=== PATIENT | female | born 1985 | race Caucasian/White ===

== ENCOUNTER 2019-10-01 12:31 | Outpatient (CLI) | payer OTHER, SELFPAY ==
--- NOTE | ~2019-10-01 | MMUS_ITS ---
EXAMINATION: MM diagnostic nya LT w zandra, US breast LT complete HISTORY: Palpable left breast lump TECHNIQUE: Additional 3-D tomosynthesis images of the left breast were performed and synthetic 2-D im ages were generated. CAD analysis was submitted and interpreted. High resolution left breast ultrasou nd was performed. COMPARISON: None FINDINGS: MAMMOGRAPHIC FINDINGS: The breasts are extremely dense, which lowers the sensitivity of mammography. There is a silicone imp lant. There are no suspicious masses, calcifications or architectural distortion in the left breast t o suggest malignancy. ULTRASOUND: Left breast ultrasound: At 2:00, 7 cm from the nipple, there is an 8 mm cyst. At 10:00, 6 cm from the nipple, there is a 5 mm cyst. No suspicious masses to suggest malignancy. IMPRESSION: 1. No mammographic or sonographic evidence for malignancy. BI-RADS CATEGORY 2 - BENIGN FINDINGS Reviewed, dictated and finalized at location A. IMPRESSION: 1. No mammographic or sonographic evidence for malignancy. BI-RADS CATEGORY 2 - BENIGN FINDINGS
== END 2019-10-01 12:32 | disposition home or self-care (01) ==
PROVIDERS: Visit Provider Advanced Practice Midwife
DX: N60.02 Solitary cyst of left breast (principal)
CPT/HCPCS: 76641; 77061; 77065; G0279

== ENCOUNTER 2020-01-29 18:42 | Inpatient (IN) | payer OTHER, SELFPAY ==
[2020-01-29] VITALS (25 sets, daily range): BP systolic 106–149; BP diastolic 63–111; PULSE 66–178; TEMP 36.6; O2SAT 98–100; BMI 28.3
[2020-01-29 19:54] LABS: Basophils Percent Auto 0.2 % (0.2-1.2); Eosinophils Percent Auto 0.2 % (0-4.4); Hemoglobin 10.5 g/dL (12.0-15.0); Immature Granulocyte Absolute 0.05 K/mm3 (0.00-0.031); Immature Granulocyte Percent A 0.5 % (0-0.5); Lymphocytes Absolute Auto 1.99 K/mm3 (0.9-3.2); Lymphocytes Percent Auto 18.6 % (18.3-44.2); Mean Corpuscular HGB Conc 31.8 g/dl (32-36); Mean Corpuscular Hemoglobin 25.9 pg (26-34); Mean Corpuscular Volume 81.3 fl (80-100); Mean Platelet Volume 12.2 fl (7.4-10.4); Monocytes Absolute Auto 0.7 K/mm3 (0.1-0.6); Monocytes Percent Auto 6.6 % (2.6-8.5); Neutrophils Absolute Auto 7.9 K/mm3 (1.3-6.7); Neutrophils Percent Auto 73.9 % (45.5-73.1); Platelet Count Result 224 k/mm3 (150-375); Red Blood Count 4.06 M/mm3 (4.2-5.4); Red Cell Distribution Width 12.6 % (11.5-14.5); White Blood Count 10.7 K/mm3 (4.5-10.0)
--- NOTE | 2020-01-29 19:56 | LDADM ---
This patient, Guillermina Velez, was admitted to Labor/Delivery/Recovery 108 on 01/29/20 at 18:42. Plans for labor, pain management and were discussed with patient. Patient/family oriented to hospital policies and general routines including ID bracelet, bed and alarms, visiting hours, pain management, procedures, bathroom and other care routines, personal items, smoking policy, room service/diet and guest tray routines, security routines, and visiting hours. Patient/Family are encouraged to report perceived risks to care and to ask questions if they do not understand what they are told or what they should do. See OBIX for further documentation.
[2020-01-29 20:08] LABS: Alanine Aminotransferase 18 U/L (4-35); Albumin Level 3.3 g/dL (3.5-5.1); Alkaline Phosphatase 205 U/L (38-126); Anion Gap 5 mmol/L (8-16); Aspartate Amino Transferase 36 U/L (14-36); Bilirubin,Total 0.2 mg/dL (0.2-1.3); Blood Urea Nitrogen 12 mg/dL (7-17); Calcium 8.9 mg/dL (8.4-10.2); Carbon Dioxide 23 mmol/L (22-30); Chloride 107 mmol/L (98-107); Estimated CRCL calculation 106 ml/min; Estimated Glomerular Filt Rate > 60; Glucose 111 mg/dL (65-105); Potassium 3.8 mmol/L (3.4-5.0); Sodium 135 mmol/L (137-145); Uric Acid 5.3 mg/dL (2.5-7.5)
[2020-01-29] MEDS: OXYTOCIN 30 UNITS/NS 500 ML 30 UNITS/500 ML BAG 6 UNITS IV CONT (20:17)
[2020-01-29] MEDS: LACTATED RINGERS 1,000 ML 125 ML IV CONT (20:17)
--- NOTE | 2020-01-29 21:07 | WPDHPUPDATE1 ---
History and Physical Update Update Date/Time: 01/29/20 21:07 This patient is a 35 at 38 weeks with PIH. We have agreed to medical induction of labor. Kathie stated, DANA Boyle clear, /-2 To continue expectant management History and Physical has been reviewed, including an updated exam of the patient. There are NO changes in the patient's condition. Risks, benefits, and alternatives have been discussed and questions answered. Patient agrees to proceed with procedure.
--- NOTE | 2020-01-29 23:37 | WPDANESEPPF ---
Anes - Initial Pre Proc Eval Date/Time: 01/29/20 23:37 Surgeon: Jennifer Rebolledo MD Pre Op Diagnosis: IOL Patient Data Age: 35 Gender: F Height: 5 ft 7 in Weight: 82 kg Last Vital Signs Pulse 89 01/29/20 23:35 BP 135/68 01/29/20 23:35 Pulse Ox 100 01/29/20 23:35 Allergies Allergy/AdvReac Type Severity Reaction Status Date / Time codeine Allergy Nausea Verified 01/15/20 12:36 Home Medications Medication Instructions Recorded Confirmed Type PNV cmb#95-ferrous fumarate-FA 1 tablet PO DAILY 01/15/20 01/15/20 History [] cefdinir 300 mg PO Q12H 01/29/20 01/29/20 History Laboratory Tests 01/29/20 01/29/20 01/29/20 19:46 19:46 19:46 WBC 10.7 K/mm3 H K/mm3 (4.5-10.0) RBC 4.06 M/mm3 L M/mm3 (4.2-5.4) Hgb 10.5 g/dL L g/dL (12.0-15.0) Hct 33.0 % L % (37.0-47.0) MCV 81.3 fl fl (80-100) MCH 25.9 pg L pg (26-34) MCHC 31.8 g/dl L g/dl (32-36) RDW 12.6 % % (11.5-14.5) Plt Count 224 k/mm3 k/mm3 (150-375) MPV 12.2 fl H fl (7.4-10.4) Immature Gran % (Auto) 0.5 % % (0-0.5) Neut % (Auto) 73.9 % H % (45.5-73.1) Lymph % (Auto) 18.6 % % (18.3-44.2) [place] % (Auto) 6.6 % % (2.6-8.5) Eos % (Auto) 0.2 % % (0-4.4) Baso % (Auto) 0.2 % % (0.2-1.2) Lymph # (Auto) 1.99 K/mm3 K/mm3 (0.9-3.2) [place] # (Auto) 0.7 K/mm3 H K/mm3 (0.1-0.6) Eos # (Auto) 0.0 K/mm3 K/mm3 (0-0.3) Baso # (Auto) 0.0 K/mm3 K/mm3 (0.0-0.1) Abs Immat Gran (auto) 0.05 K/mm3 H K/mm3 (0.00-0.031) Absolute Neuts (auto) 7.9 K/mm3 H K/mm3 (1.3-6.7) Absolute Nucleated RBC 0.0 K/mm3 K/mm3 (0.0-0.012) Nucleated RBC % 0.0 % % (0.0-0.2) Sodium Potassium Chloride Carbon Dioxide Anion Gap BUN Creatinine Estim Creat Clear Calc Estimated GFR Glucose Uric Acid Calcium Total Bilirubin AST ALT Alkaline Phosphatase Total Protein Albumin RPR Pending Blood Type O Positive Antibody Screen Negative 01/29/20 19:48 WBC RBC Hgb Hct MCV MCH MCHC RDW Plt Count MPV Immature Gran % (Auto) Neut % (Auto) Lymph % (Auto) [place] % (Auto) Eos % (Auto) Baso % (Auto) Lymph # (Auto) [place] # (Auto) Eos # (Auto) Baso # (Auto) Abs Immat Gran (auto) Absolute Neuts (auto) Absolute Nucleated RBC Nucleated RBC % Sodium 135 mmol/L L mmol/L (137-145) Potassium 3.8 mmol/L mmol/L (3.4-5.0) Chloride 107 mmol/L mmol/L (98-107) Carbon Dioxide 23 mmol/L mmol/L (22-30) Anion Gap 5 mmol/L L mmol/L (8-16) BUN 12 mg/dL mg/dL (7-17) Creatinine 0.70 mg/dL mg/dL (0.7-1.0) Estim Creat Clear Calc 106 ml/min ml/min Estimated GFR > 60 (59 - ) Glucose 111 mg/dL H mg/dL (65-105) Uric Acid 5.3 mg/dL mg/dL (2.5-7.5) Calcium 8.9 mg/dL mg/dL (8.4-10.2) Total Bilirubin 0.2 mg/dL mg/dL (0.2-1.3) AST 36 U/L U/L (14-36) ALT 18 U/L U/L (4-35) Alkaline Phosphatase 205 U/L H U/L (38-126) Total Protein 6.0 g/dL L g/dL (6.3-8.2) Albumin 3.3 g/dL L g/dL (3.5-5.1) RPR Blood Type Antibody Screen Patient hx anesthesia problems: none Family hx anesthesia problems: none [facility] Past Medical History Medical History (Updated 01/29/20 @ 23:37 by Aravind Urias MD) Anxiety Family History Family History Father Lung cancer Sibling Breast
[2020-01-30] VITALS (167 sets, daily range): BP systolic 62–180; BP diastolic 38–135; PULSE 34–154; RESP 16; TEMP 36.1–36.8; O2SAT 76–100
[2020-01-30] MEDS: ONDANSETRON INJ 4 MG/2 ML VIAL IV PUSH ×2 (01:23→07:22)
[2020-01-30] MEDS: LACTATED RINGERS 1,000 ML 125 ML IV CONT (02:58)
--- NOTE | 2020-01-30 08:03 | P.PNOB_ITS ---
OB - PN: Subj Subjective Date/time seen: 01/30/20 08:03 35-year-old 2 para 0 at 38 and 6 with PIH who was induced last night. She is almost completely dilated. 0 station. There is reassuring heart tones. To continue to expectant management. OB - PN: Obj Data Labs CBC & Chem 7: 01/29/20 19:46 01/29/20 19:48 Labs: Laboratory Results - last 24 hr 01/29/20 01/29/20 01/29/20 19:46 19:46 19:48 WBC 10.7 H RBC 4.06 L Hgb 10.5 L Hct 33.0 L MCV 81.3 MCH 25.9 L MCHC 31.8 L RDW 12.6 Plt Count 224 MPV 12.2 H Immature Gran % (Auto) 0.5 Neut % (Auto) 73.9 H Lymph % (Auto) 18.6 [place] % (Auto) 6.6 Eos % (Auto) 0.2 Baso % (Auto) 0.2 Lymph # (Auto) 1.99 [place] # (Auto) 0.7 H Eos # (Auto) 0.0 Baso # (Auto) 0.0 Abs Immat Gran (auto) 0.05 H Absolute Neuts (auto) 7.9 H Absolute Nucleated RBC 0.0 Nucleated RBC % 0.0 Sodium 135 L Potassium 3.8 Chloride 107 Carbon Dioxide 23 Anion Gap 5 L BUN 12 Creatinine 0.70 Estim Creat Clear Calc 106 Estimated GFR > 60 Glucose 111 H Uric Acid 5.3 Calcium 8.9 Total Bilirubin 0.2 AST 36 ALT 18 Alkaline Phosphatase 205 H Total Protein 6.0 L Albumin 3.3 L Blood Type O Positive Antibody Screen Negative OB - PN A/P Time Spent With Patient Time: Total time spent is greater than 50% in coordination of care (as documented) at patient's floor/unit and/or counseling patient:
[2020-01-30 09:37] LABS: Rapid Plasma Reagin Non-Reactive (NonReactive)
[2020-01-30] MEDS: OXYTOCIN 30 UNITS/NS 500 ML 30 UNITS/500 ML BAG 999 UNITS IV CONT (10:42)
[2020-01-30] MEDS: miSOPROStol 200 MCG TABLET 1000 MCG RECTAL (10:42)
--- NOTE | 2020-01-30 10:57 | PM.OBPRVD ---
OB - Delivery Note Procedure Delivery date: 01/30/20 Procedure: Normal spontaneous vaginal delivery with hemorrhage events: Induced HTN and Labor Induction Induction method: AROM and per pitocin protocol Delivery monitor: external FHT and external uterine Route of delivery: Episiotomy description: Midline Laceration description: None Delivery repair: vicryl Estimated blood loss (mL): 1,600 Anesthesia type: Epidural Baby Date of : 01/30/20 Time of : 10:20 Weeks of gestation at delivery: 38 Weight (pounds): 7 Weight (ounces): 10 presentation: vertex position: Right Occiput Anterior Placenta delivery description: Manual Removal score one minute: 9 score five minutes: 9 Narrative: delivery complicated by hemorrhage. Placenta was delivered in fragments. There was retained placenta. Manual exploration was performed more placental parts were removed. Cytotec was placed in the rectum. Massaged and manual exploration was repeated. Clots and membranes were removed and the bleeding began resolved. There was 1600 cc of blood loss. She was stable and hemostatic at the end of the encounter.
[2020-01-30] MEDS: OXYTOCIN 30 UNITS/NS 500 ML 30 UNITS/500 ML BAG 125 UNITS IV CONT (12:08)
[2020-01-30] MEDS: BENZOCAINE 20% AER SPR (*SP) 56 GM CAN 1 SPRAY (14:27)
[2020-01-30] MEDS: IBUPROFEN 600 MG TABLET (14:27)
[2020-01-30] MEDS: WITCH HAZEL 40 PADS 1 PAD (14:27)
--- NOTE | 2020-01-30 17:33 | PC.NURSE ---
Patient transferred to post room #278 via wheelchair. Support person present. Oriented to unit, room, information board, rooming in, admission packet and security measures. Patient verbalizes understanding.
[2020-01-30] MEDS: IBUPROFEN 600 MG TABLET PO (21:18)
[2020-01-30] MEDS: ACETAMINOPHEN 325 MG TABLET 650 MG PO (21:18)
[2020-01-31] MEDS: IBUPROFEN 600 MG TABLET PO ×2 (04:03→10:33)
[2020-01-31] MEDS: ACETAMINOPHEN 325 MG TABLET 650 MG PO ×2 (04:03→10:34)
[2020-01-31 05:24] LABS: Hematocrit 22.6 % (37.0-47.0); Hemoglobin 7.1 g/dL (12.0-15.0)
--- NOTE | 2020-01-31 07:43 | PM.OBPNVD ---
OB - PN: Subj Subjective Date/time seen: 01/31/20 07:43 Patient comments: no complaints, pain well controlled and other (Lochia similar to menses) [place] baby status: doing well Narrative: She felt slightly dizzy last night but none today. no CP/SOB. OB - PN: Obj Data Labs CBC & Chem 7: 01/31/20 03:57 01/29/20 19:48 Labs: Laboratory Results - last 24 hr 01/29/20 01/31/20 19:46 03:57 Hgb 7.1 L D Hct 22.6 L RPR Non-reactive OB - PN A/P Assessment and Plan (1) Anemia-delivered w/ complication: Code(s): O99.03 - Anemia complicating the puerperium Status: Acute Assessment and Plan: Anemia (appropriate drop in H&H with EBL 1600 hemorrhage). Asymptomatic. Continue iron and colace (2) Gestational hypertension: Code(s): O13.9 - Gestational [-induced] hypertension without significant proteinuria, unspecified trimester Status: Acute Assessment and Plan: BP normal to mildly elevated, asymptomatic Plan day: 1 (s/p vaginal delivery, doing well) Plan: routine care and discharge home (Follow up in 4 weeks) Time Spent With Patient Time: Total time spent is greater than 50% in coordination of care (as documented) at patient's floor/unit and/or counseling patient: Time with patient: less than 15 minutes Exam Const: General: no acute distress GI: Inspection: other (Fundus firm and nontender at umbilicus) GI Palp: Yes Soft to palpation and No Tenderness to palpation present (GI) Extrem: General: no edema
[2020-01-31 07:50] VITALS: BP 128/63; PULSE 73; RESP 18; TEMP 36.3; O2SAT 94
[2020-01-31 08:30] VITALS: PULSE 73; RESP 18; O2SAT 94
--- NOTE | 2020-01-31 08:52 | PM.OBPNVD ---
OB - PN: Subj Subjective Date/time seen: 01/31/20 08:52 Patient comments: no complaints, pain well controlled, tolerating diet and flatus present OB - PN: Obj Data Labs CBC & Chem 7: 01/31/20 03:57 01/29/20 19:48 Labs: Laboratory Results - last 24 hr 01/29/20 01/31/20 19:46 03:57 Hgb 7.1 L D Hct 22.6 L RPR Non-reactive OB - PN A/P Plan day: 1 Comments: Post Op LTCS - no problems, routine recovery, to d/c Time Spent With Patient Time: Total time spent is greater than 50% in coordination of care (as documented) at patient's floor/unit and/or counseling patient: Exam Const: General: cooperative, healthy appearing, comfortable and no acute distress Resp: Auscultation: no crackles, no rales, no rhonchi and no wheezes Cardio: Rhythm: regular rhythm Heart sounds: no click and no murmurs GI: Inspection: non-distended Auscultation: normal bowel sounds Extrem: General: normal to inspection, no pedal edema and no calf tenderness
--- NOTE | 2020-01-31 08:53 | PM.OBDSVD ---
DS: Admitting Diagnosis Admitting Diagnosis Admitting Diagnosis: IOL DS: Discharge Diagnosis Discharge Diagnosis (1) Term delivered: Code(s): O80 - Encounter for full-term uncomplicated delivery Status: Acute (2) atony of uterus with hemorrhage: Code(s): O72.1 - Other immediate hemorrhage Status: Acute OB - DS: Summary OB Procedures : None OB Procedures Intrapartum: Spontaneous Vag Delivery OB Procedures: : Other (manual exploration of the uterus) Peripartum Data Infant Delivery Method: Natural Vaginal Episiotomy description: Midline complications: uterine atony Status at Discharge Functional status at discharge: independent ambulation Time Spent with Patient Time attestation: Total time spent providing and/or coordinating discharge services: DS: Data Data Completed and Pending Pending studies at discharge: Pending at discharge 01/30/20 10:28 Surgical [PTH] Routine Labs on day of discharge: Labs from last 24 hours 01/31/20 01/29/20 03:57 19:46 Hgb 7.1 L D Hct 22.6 L RPR Non-reactive Discharge Plan Discharge Attending physician on discharge: Jennifer Rebolledo Discharging Clinician: Jennifer Rebolledo Patient Disposition: Home, Self-Care Activity: may shower and pelvic rest Diet: regular Patient Instructions: Antibiotic Form Stand Alone Forms: General Discharge Information Follow-up/Referrals: Jennifer Rebolledo MD [Physician] - 1 Week Discharge Medications: New ibuprofen 600 mg Tablet 600 mg PO Q6H PRN (Reason: Cramping) Qty: 60 RF: 0 Continued PNV cmb#95-ferrous fumarate-FA [] 28 mg iron- 800 mcg Tablet 1 tablet PO DAILY RF: 0 cefdinir 300 mg Capsule 300 mg PO Q12H RF: 0 Date of admission: 01/29/20 18:42 Primary Care Provider: PHYSICIAN,MEDICAL DIR Admitting Provider: Jennifer Rebolledo Attending physician on admission: Jennifer Rebolledo
--- NOTE | 2020-01-31 09:22 | WPDANLDPN2 ---
Anes-Prog Note L&D Date/Time: 01/31/20 09:22 Comfortable throughout: labor and delivery Neuraxial method: epidural Epidural/Spinal procedure site: clean & non-tender Neuro status: Neuro function grossly intact. Cardiovascular status: normal Respiratory status: normal Airway patency: baseline Mental status: baseline Post-Op hydration status: normal Vital Signs: Last Vital Signs Temp 36.2 C L 01/30/20 20:00 Pulse 71 01/30/20 20:00 Resp 16 01/30/20 20:00 BP 135/74 01/30/20 20:00 Pulse Ox 100 01/30/20 20:00 Pain score (VAS): 1 Post-procedural complaints: none Patient feedback: Patient satisfied with anesthetic care.
[2020-01-31] MEDS: POLYSACCHARIDE IRON COMPLEX 150 MG CAPSULE PO (10:35)
[2020-01-31] MEDS: MULTIVIT/MIN/PREN/FOL AC/IRON TABLET 1 TAB PO (10:35)
[2020-01-31] MEDS: DOCUSATE SODIUM 100 MG CAPSULE PO (10:35)
--- NOTE | 2020-01-31 11:20 | PC.NURSE ---
Consulted with patient, mother reports infant has eagerly latched for the first several feedings. . Reviewed infant feeding cues, frequencies, duration of feedings, feeding elimination flow sheet, and signs of adequate intake. Demonstrated stimulation techniques to wake infant for feeding. Assisted with infant to breast. Reviewed positioning/alignment in cross cradle, holding breast in U hold and guided asymmetrical latch on. Reviewed rational for each. was able to latch correctly. nursed eagerly, with steady draws and frequent swallowing noted. Reviewed signs of a correct latch, effective nursing and suck swallow ratio. was able to maintain latch without discomfort to mother. Nipple care reviewed. Suggested mother stimulate to keep awake and nursing effectively for increased intake and to assist with maintaining deep latch. Demonstrated how to adjust latch while feeding. Discussed mother's EBL after delivery and how a this may impact milk supply and possible delay. Advised to keep accurate records of feeding/elimination and notify ICP if infant is not having output or feeding as required. Mother states she wishes to be discharged today. Mother is feeding as required and waking to feed if needed. Infant has had at least 8 effective feedings in the past 24 hours, and is currently meeting outcomes for weight, output, jaundice and feeding frequencies. Mother states she feels confident to continue effective at home. Reviewed transition to breast milk, signs of adequate intake, and engorgement/relief. Instructed to call ICP if intake/output less than required. Reviewed regular medications mother is taking. Information provided per April. Reviewed community resources on the [facility] website and in the Mom/Baby guide. Information on outpatient services provided. Mother has no further questions at this time.
--- NOTE | 2020-01-31 14:49 | PC.NURSE ---
Patient viewed the discharge video Mother & Baby Care, The First Two Weeks . Patient was given the opportunity and encouraged to ask questions. Patient verbalized understanding of information shared and has been given the mother/baby guide for home reference.
[2020-02-01 09:36] VITALS: BP 123/85; PULSE 85; RESP 20; TEMP 36.9; O2SAT 100
== END 2020-01-31 15:34 | disposition home or self-care (01) | DRG 807 ==
LOC: ANHLDR 18:54 → ANHOB2 01-31 07:51 → ANHLDR 01-31 20:47 → ANHOB2 01-31 20:47
PROVIDERS: Admitting Provider Obstetrics & Gynecology; Visit Provider Obstetrics & Gynecology
DX: O13.4 Gestational [pregnancy-induced] hypertension without significant proteinuria, complicating childbirth (principal); Z37.0 Single live birth; Z3A.38 38 weeks gestation of pregnancy; O72.1 Other immediate postpartum hemorrhage; O72.2 Delayed and secondary postpartum hemorrhage
CPT/HCPCS: 36415; 80053; 84550; 85014; 85018; 85025; 86592; 86850; 86900; 86901; 88307; A9270; J2405; J2590; J2795; J7120

== ENCOUNTER 2021-10-26 15:46 | Outpatient (CLI) | payer OTHER, SELFPAY ==
[2021-10-26 16:15] VITALS: BP 124/81; PULSE 76
[2021-10-26 16:30] VITALS: BP 123/81; PULSE 78
[2021-10-26 16:45] VITALS: BP 121/80; PULSE 81
[2021-10-26 17:00] VITALS: BP 119/75; PULSE 77
[2021-10-26 17:15] VITALS: BP 124/75; PULSE 75
[2021-10-26] MEDS: ACETAMINOPHEN/BUTALBITAL/CAFFEINE 325-50-40 MG TABLET (FIORICET) 1 TAB PO (17:25)
[2021-10-26] MEDS: ACETAMINOPHEN 325 MG TABLET PO (17:25)
--- NOTE | 2021-10-26 17:45 | PC.NURSE ---
Dr Butt notified of adm c/o of headache and hx of migraines and that she is out of migraine medication. Informed of bP's, no orders for labs at this time. Give patient 1 Fioricet and tylenol. Patient to call office in am to get new rx for Fioricet. May dc home.
[2021-10-26 17:50] VITALS: BP 124/81; PULSE 77
== END 2021-10-26 17:50 | disposition home or self-care (01) ==
LOC: ANHOBOP 15:56 → ANHOBPP 15:56
PROVIDERS: Visit Provider Obstetrics & Gynecology
DX: R51.9 Headache, unspecified (principal); O13.9 Gestational [pregnancy-induced] hypertension without significant proteinuria, unspecified trimester; Z3A.00 Weeks of gestation of pregnancy not specified
CPT/HCPCS: 59025; 99199; A9270

== ENCOUNTER 2021-11-10 09:42 | Outpatient (CLI) | payer OTHER, SELFPAY ==
[2021-11-10] VITALS (13 sets, daily range): BP systolic 101–132; BP diastolic 60–95; PULSE 67–87
--- NOTE | 2021-11-10 10:16 | PM.IMHP ---
H&P: HPI History of Present Illness Date/Time: 11/10/21 10:16 Chief Complaint: Headache Narrative: This patient is a 36-year-old 2 para 1001 at 36 weeks gestation who reported severe headache. Her headache is better today. Yesterday she had a frontal throbbing headache. She had some vision changes yesterday. She has a frontal headache today that feels like tension. She denies any vision changes today she had some swelling yesterday but it is improved today. She denies any contractions or loss of fluid. She reports good movement. She denies any change in vaginal discharge. Review of Systems Review of Systems: All systems reviewed & are unremarkable except as noted in HPI and below Constitutional: Constitutional: Denies chills, Denies fatigue, Denies fever(s) and Denies weakness Eyes: Eyes: Denies blurry vision, Denies change in vision, Denies loss of peripheral vision, Denies loss of vision, Denies other visual disturbances and Denies eye pain ENT: Denies vertigo, Denies dizziness, Denies hearing loss, Denies mouth pain, Denies nasal obstruction, Denies neck mass and Denies neck pain Cardiovascular: Cardiovascular: Denies chest pain, Denies diaphoresis, Denies syncope, Denies leg edema and Denies dyspnea Respiratory: Respiratory: Denies chest congestion, Denies cough, Denies hemoptysis, Denies dyspnea and Denies wheezing Gastrointestinal: Gastrointestinal: Denies abdominal pain, Denies constipation, Denies diarrhea, Denies nausea and Denies vomiting Genitourinary: Genitourinary: Denies hematuria, Denies change in libido, Denies nocturia, Denies genital lesions, Denies flank pain and Denies urinary urgency Musculoskeletal: Musculoskeletal: Denies abnormal gait, Denies back pain, Denies myalgias, Denies arthralgias, Denies joint swelling, Denies muscle weakness and Denies neck pain Integumentary/Breasts: Skin/Breast: Denies swelling, Denies breast pain, Denies breast mass, Denies dry skin, Denies nipple discharge, Denies unusual bruising and Denies jaundice Neurologic: Denies Neuro-related abnormal movements, Denies Abnormal speech present, Denies abnormal gait, Denies behavioral changes, Denies confusion, Denies vertigo, Denies dizziness, Denies syncope, Denies loss of vision, Denies memory loss, Denies convulsions and Denies weakness Psychiatric: Psychiatric: Denies abnormal sleep pattern, Denies behavioral changes, Denies change in libido, Denies confusion, Denies depression, Denies anhedonia and Denies memory loss Endocrine: Endocrine: Reports no additional endocrine complaints, Denies change in libido and Denies fatigue Hematologic/Lymphatic: Hematologic/Lymphatic: Reports no additional hematologic/lymphatic complaints Allergic/Immunologic: Allergic/Immunologic: Reports no additional allergic/immunologic complaints and Denies wheezing PMF Past Medical History Medical History (Updated 11/10/21 @ 10:27 by Jennifer Rebolledo MD) Anxiety Family History Family History Father Lung cancer Sibling Breast cancer in male Grandparent Breast cancer in female Social History Social History Smoking status: Never smoker Alcohol intake: never Substance use: never Spiritual care concerns: No Meds Home Medications and Allergies Home Medications Medication Instructions Recorded Confirmed Type prenat.vits,hong,tow-gzpk-wanwi 1 tablet PO DAILY 11/05/21 11/05/21 History Allergies Allergy/AdvReac Type Severity Reaction Status Date / Time codeine Allergy Mild Nausea Verified 11/05/21 15:53 Penicillins Allergy Rash Verified 11/05/21 15:53 Vital Signs Vital Signs - 24 hr 11/10/21 10:16 Pulse Rate 81 Blood Pressure 132/95 H Exam Const: General: cooperative, healthy appearing, comfortable and no acute distress; No confusion Orientation/consciousness: oriented to person, danika
--- NOTE | 2021-11-10 10:20 | PC.NURSE ---
Dr. Rebolledo in to see and evaluate pt.
[2021-11-10] MEDS: ONDANSETRON HCL ODT 4 MG TABLET PO (10:47)
[2021-11-10] MEDS: ACETAMINOPHEN 500 MG TABLET 1000 MG PO (11:03)
[2021-11-10] MEDS: CAFFEINE 200 MG TABLET PO (11:04)
[2021-11-10 11:21] LABS: Basophils Percent Auto 0.3 % (0.2-1.2); Eosinophils Absolute Auto 0.1 K/mm3 (0-0.3); Eosinophils Percent Auto 0.4 % (0-4.4); Hematocrit 41.1 % (37.0-47.0); Hemoglobin 13.2 g/dL (12.0-15.0); Immature Granulocyte Absolute 0.05 K/mm3 (0.00-0.031); Immature Granulocyte Percent A 0.4 % (0-0.5); Lymphocytes Absolute Auto 1.81 K/mm3 (0.9-3.2); Lymphocytes Percent Auto 15.4 % (18.3-44.2); Mean Corpuscular HGB Conc 32.1 g/dl (32-36); Mean Corpuscular Hemoglobin 27.3 pg (26-34); Mean Corpuscular Volume 84.9 fl (80-100); Mean Platelet Volume 10.9 fl (7.4-10.4); Monocytes Absolute Auto 0.7 K/mm3 (0.1-0.6); Monocytes Percent Auto 6.1 % (2.6-8.5); Neutrophils Absolute Auto 9.1 K/mm3 (1.3-6.7); Neutrophils Percent Auto 77.4 % (45.5-73.1); Platelet Count Result 300 k/mm3 (150-375); Red Blood Count 4.84 M/mm3 (4.2-5.4); White Blood Count 11.7 K/mm3 (4.5-10.0)
[2021-11-10 11:23] LABS: Appearance Urine Slightly Cloudy (Clear); Bilirubin Urine Negative (Negative); Blood Urine Negative (Negative); Color Urine Yellow (Yellow); Glucose Urine UA Negative (Negative); Ketones Urine Negative (Negative); Leukocyte Esterase Ur Negative LEU/UL (Negative); Nitrate Urine Negative (Negative); Protein Urine Negative (Negative); Specific Grav Ur 1.015 (1.001-1.035); Urobilinogen Urine 0.2 mg/dL (<2.0)
[2021-11-10 11:28] LABS: Bacteria Urine Trace /hpf; Mucus Urine Rare /lpf; Squamous Epithelial Cell Urine Rare /hpf (Few); WBC Urine 0-3 /hpf
[2021-11-10 11:33] LABS: Alanine Aminotransferase 25 U/L (6-35); Albumin Level 4.3 g/dL (3.5-5.1); Alkaline Phosphatase 166 U/L (38-126); Anion Gap 6 mmol/L (8-16); Aspartate Amino Transferase 43 U/L (14-36); Bilirubin,Total 0.4 mg/dL (0.2-1.3); Blood Urea Nitrogen 10 mg/dL (7-17); Calcium 9.5 mg/dL (8.4-10.2); Carbon Dioxide 25 mmol/L (22-30); Chloride 106 mmol/L (98-107); Creatinine Urine 24.8 mg/dL; Estimated Glomerular Filt Rate > 60; Glucose 78 mg/dL (65-110); Potassium 3.9 mmol/L (3.4-5.0); Sodium 137 mmol/L (137-145); Total Protein Urine Random 12 mg/dL; Ur Ttl Prot Creatinine Ratio 0.48 mg/mg (0-0.20); Uric Acid 3.9 mg/dL (2.5-7.5)
--- NOTE | 2021-11-10 11:45 | PC.NURSE ---
Dr. Rebolledo on unit and updated on BP's and lab results. Hasn't been an hour yet since Tylenol and Caffeine were given. Had pt order some lunch.
[2021-11-10 11:50] LABS: Add Urine Microscopic? YES
--- NOTE | 2021-11-10 13:00 | PC.NURSE ---
Dr. Rebolledo on unit and informed headache has decreased from a 7 to a 3 out of 10. OK to discharge to home. Has appointment in office on Monday. To do 24 hr urine at home.
== END 2021-11-10 13:16 | disposition home or self-care (01) ==
LOC: ANHOBOP 09:48 → ANHOBPP 09:50
PROVIDERS: Visit Provider Obstetrics & Gynecology
DX: O13.9 Gestational [pregnancy-induced] hypertension without significant proteinuria, unspecified trimester (principal); Z3A.00 Weeks of gestation of pregnancy not specified
CPT/HCPCS: 36415; 59025; 80053; 81001; 82570; 84156; 84550; 85025; 99199; A9270

== ENCOUNTER 2021-11-11 16:17 | Outpatient (CLI) | payer OTHER, SELFPAY ==
[2021-11-11 17:23] VITALS: BMI 30.8
[2021-11-11 18:34] LABS: Collection Time Urine 24 HOURS
[2021-11-11 18:36] LABS: Patient Weight 168 Lbs; Total Volume 24 Hour Urine 900 ml
[2021-11-11 18:46] LABS: Creatinine Clearance Urine 99.3 ml/min (75-125); Creatinine Urine 81.2 mg/dL; Total Protein Urine 24 Hr 90 mg/24hr (28-141); Total Protein Urine Random 10 mg/dL
== END 2021-11-11 16:18 | disposition home or self-care (01) ==
LOC: ANHOBOP 16:19
PROVIDERS: Visit Provider Obstetrics & Gynecology
DX: O13.9 Gestational [pregnancy-induced] hypertension without significant proteinuria, unspecified trimester (principal); Z3A.00 Weeks of gestation of pregnancy not specified
CPT/HCPCS: 81050; 82575; 84156

== ENCOUNTER 2021-11-12 13:02 | Outpatient (CLI) | payer OTHER, SELFPAY ==
[2021-11-12 14:45] VITALS: BP 123/84; PULSE 81
[2021-11-12 15:00] VITALS: BP 122/81; PULSE 78
[2021-11-12 15:09] LABS: Basophils Percent Auto 0.3 % (0.2-1.2); Eosinophils Percent Auto 0.4 % (0-4.4); Hematocrit 37.2 % (37.0-47.0); Hemoglobin 12.1 g/dL (12.0-15.0); Immature Granulocyte Absolute 0.04 K/mm3 (0.00-0.031); Immature Granulocyte Percent A 0.4 % (0-0.5); Lymphocytes Absolute Auto 1.64 K/mm3 (0.9-3.2); Lymphocytes Percent Auto 15.6 % (18.3-44.2); Mean Corpuscular HGB Conc 32.5 g/dl (32-36); Mean Corpuscular Hemoglobin 27.2 pg (26-34); Mean Corpuscular Volume 83.6 fl (80-100); Mean Platelet Volume 11.1 fl (7.4-10.4); Monocytes Absolute Auto 0.8 K/mm3 (0.1-0.6); Monocytes Percent Auto 7.8 % (2.6-8.5); Neutrophils Percent Auto 75.5 % (45.5-73.1); Platelet Count Result 257 k/mm3 (150-375); Red Blood Count 4.45 M/mm3 (4.2-5.4); Red Cell Distribution Width 12.9 % (11.5-14.5); White Blood Count 10.5 K/mm3 (4.5-10.0)
[2021-11-12 15:15] VITALS: BP 124/74; PULSE 82
[2021-11-12 15:19] LABS: Creatinine Urine 58.9 mg/dL; Total Protein Urine Random 12 mg/dL
[2021-11-12 15:21] LABS: Alanine Aminotransferase 22 U/L (6-35); Albumin Level 4.1 g/dL (3.5-5.1); Alkaline Phosphatase 147 U/L (38-126); Anion Gap 6 mmol/L (8-16); Aspartate Amino Transferase 39 U/L (14-36); Bilirubin,Total 0.1 mg/dL (0.2-1.3); Blood Urea Nitrogen 11 mg/dL (7-17); Carbon Dioxide 24 mmol/L (22-30); Chloride 107 mmol/L (98-107); Estimated Glomerular Filt Rate > 60; Glucose 75 mg/dL (65-110); Potassium 3.6 mmol/L (3.4-5.0); Sodium 137 mmol/L (137-145); Uric Acid 3.6 mg/dL (2.5-7.5)
[2021-11-12] MEDS: ONDANSETRON HCL ODT 4 MG TABLET PO (15:29)
[2021-11-12] MEDS: ACETAMINOPHEN 500 MG TABLET 1000 MG PO (15:29)
[2021-11-12 15:30] VITALS: BP 121/82; PULSE 84
[2021-11-12] MEDS: CAFFEINE 200 MG TABLET PO (15:30)
[2021-11-12 15:45] VITALS: BP 123/82; PULSE 76
[2021-11-12 15:49] LABS: Appearance Urine Clear (Clear); Bilirubin Urine Negative (Negative); Blood Urine Negative (Negative); Color Urine Yellow (Yellow); Glucose Urine UA Negative (Negative); Ketones Urine Negative (Negative); Leukocyte Esterase Ur Negative LEU/UL (NEGATIVE); Nitrate Urine Negative (Negative); Protein Urine Negative (Negative); Specific Grav Ur 1.025 (1.001-1.035); Urobilinogen Urine 0.2 mg/dL (<2.0)
[2021-11-12 15:52] LABS: Add Urine Microscopic? NO
[2021-11-12 16:01] VITALS: BP 126/77; PULSE 79
--- NOTE | 2021-11-12 16:22 | PM.IMHP ---
H&P: [facility] History of Present Illness Date/Time: 11/12/21 16:22 Chief Complaint: Headache Narrative: This patient is a 36 year old multiparous female has 36 weeks gestation in with headache. It is a frontal headache that is a tightening, pressure feeling. It is not pulsatile. It is not the worst headache she has ever had. She denies any increased swelling in her extremities. She denies any nausea vomiting. She denies any epigastric pain. She is had some elevated blood pressures in previous visits. In the office today she had some elevated blood pressures. She denies any chest pain or shortness of breath. She denies any fevers or chills. Review of Systems Review of Systems: All systems reviewed & are unremarkable except as noted in HPI and below Constitutional: Constitutional: Denies chills, Denies fatigue, Denies fever(s) and Denies weakness Eyes: Eyes: Denies blurry vision, Denies change in vision, Denies loss of peripheral vision, Denies loss of vision, Denies other visual disturbances and Denies eye pain ENT: Denies vertigo, Denies dizziness, Denies hearing loss, Denies mouth pain, Denies nasal obstruction, Denies neck mass and Denies neck pain Cardiovascular: Cardiovascular: Denies chest pain, Denies diaphoresis, Denies syncope, Denies leg edema and Denies dyspnea Respiratory: Respiratory: Denies chest congestion, Denies cough, Denies hemoptysis, Denies dyspnea and Denies wheezing Gastrointestinal: Gastrointestinal: Denies abdominal pain, Denies constipation, Denies diarrhea, Denies nausea and Denies vomiting Genitourinary: Genitourinary: Denies hematuria, Denies change in libido, Denies nocturia, Denies genital lesions, Denies flank pain and Denies urinary urgency Musculoskeletal: Musculoskeletal: Denies abnormal gait, Denies back pain, Denies myalgias, Denies arthralgias, Denies joint swelling, Denies muscle weakness and Denies neck pain Integumentary/Breasts: Skin/Breast: Denies swelling, Denies breast pain, Denies breast mass, Denies dry skin, Denies nipple discharge, Denies unusual bruising and Denies jaundice Neurologic: Denies Neuro-related abnormal movements, Denies Abnormal speech present, Denies abnormal gait, Denies behavioral changes, Denies confusion, Denies vertigo, Denies dizziness, Denies syncope, Denies loss of vision, Denies memory loss, Denies convulsions and Denies weakness Psychiatric: Psychiatric: Denies abnormal sleep pattern, Denies behavioral changes, Denies change in libido, Denies confusion, Denies depression, Denies anhedonia and Denies memory loss Endocrine: Endocrine: Reports no additional endocrine complaints, Denies change in libido and Denies fatigue Hematologic/Lymphatic: Hematologic/Lymphatic: Reports no additional hematologic/lymphatic complaints Allergic/Immunologic: Allergic/Immunologic: Reports no additional allergic/immunologic complaints and Denies wheezing PMFSH Past Medical History Medical History (Updated 11/12/21 @ 16:25 by Jennifer Rebolledo MD) Anxiety Family History Family History Father Lung cancer Sibling Breast cancer in male Grandparent Breast cancer in female Social History Social History Smoking status: Never smoker Alcohol intake: never Substance use: never Spiritual care concerns: No Meds Home Medications and Allergies Home Medications Medication Instructions Recorded Confirmed Type prenat.vits,hong,vro-wrxp-ogvie 1 tablet PO DAILY 11/05/21 11/12/21 History Allergies Allergy/AdvReac Type Severity Reaction Status Date / Time Penicillins Allergy Rash Verified 11/05/21 15:53 codeine AdvReac Mild Nausea Verified 11/10/21 10:55 Vital Signs Vital Signs - 24 hr 11/12/21 14:45 11/12/21 15:00 11/12/21 15:15 Pulse Rate 81 78 82 Blood Pressure 123/84 122/81 124/74 11/12/21 15:30 11/12/21 15:45 11/12/21 16:01 Pulse R
== END 2021-11-12 16:23 | disposition home or self-care (01) ==
LOC: ANHOBOP 14:07 → ANHOBPP 14:08
PROVIDERS: Visit Provider Obstetrics & Gynecology
DX: O13.9 Gestational [pregnancy-induced] hypertension without significant proteinuria, unspecified trimester (principal); Z3A.00 Weeks of gestation of pregnancy not specified
CPT/HCPCS: 36415; 59025; 80053; 81003; 82570; 84156; 84550; 85025; 87086; 99199; A9270

== ENCOUNTER 2021-11-16 05:33 | Inpatient (IN) | payer OTHER, SELFPAY ==
--- NOTE | 2021-11-05 16:18 | PC.NURSE ---
More from Dr Rebolledo's office called and states patient has only had 2nd HIV, blood type and antibody drawn for this
--- NOTE | 2021-11-15 12:53 | P.PNAN_ITS ---
Anes - Initial Pre Proc Eval Procedure: Operation Date: 11/16/21 07:30 Proposed Procedures p Section - Jennifer Rebolledo MD Date/Time: 11/15/21 12:53 Surgeon: Jennifer Rebolledo MD Pre Op Diagnosis: section Patient Data Age: 36 Gender: F Height: Weight: Allergies Allergy/AdvReac Type Severity Reaction Status Date / Time Penicillins Allergy Rash Verified 11/05/21 15:53 codeine AdvReac Mild Nausea Verified 11/10/21 10:55 Home Medications Medication Instructions Recorded Confirmed Type prenat.vits,hong,wsj-lztl-bxxcu 1 tablet PO DAILY 11/05/21 11/12/21 History Patient hx anesthesia problems: none Family hx anesthesia problems: none Results Review: All pre-operative results and documents have been reviewed as part of the pre- operative evaluation. [facility] Past Medical History Medical History (Updated 11/15/21 @ 12:54 by Dinesh Odonnell MD) Anxiety Gestational hypertension Headache atony of uterus with hemorrhage Family History Family History Father Lung cancer Sibling Breast cancer in male Grandparent Breast cancer in female Social History Social History Smoking status: Never smoker Alcohol intake: never Substance use: never Spiritual care concerns: No Anes - Eval Final PreProcedure Day of Procedure 11/15/21 12:53 Patient weight: overweight Heart: regular rate and rhythm Lungs: clear to auscultation and normal air movement Airway: Mallampati scale class II Neurological: alert and oriented Last oral intake: >/= 8 hours ASA classification: III Emergent: no Anesthetic plan: proceed Anesthesia type and monitoring: regional spinal Results Review: All pre-operative results and documents have been reviewed as part of the pre-operative evaluation. Informed Consent: The patient's anesthetic plan and its attendant risks and benefits were discussed with the patient/family/POA. Questions were solicited and answers provided to the satisfaction of the patient/family/POA.
[2021-11-16] VITALS (51 sets, daily range): BP systolic 90–134; BP diastolic 60–92; PULSE 25–86; RESP 14–18; TEMP 36.1–36.5; O2SAT 64–100; BMI 27.2
--- OUTSIDE RECORDS SUMMARY | 2021-11-16 05:37 | XMS_ITS | Encounter Summary ---
:1985 Author Care Team Providers Name Role Phone Radha Rutherford Primary Care Provider [phone] Reason for Visit OB visit Assessment and Plan Assessment Note Patient is ___weeks . Discussed plan. 1. Pre-eclampsia Discussion Note: None recorded.Patient educational handouts: No information available. Plan of Care Reminders Provider Appointments Surg Post Op 11/25/2021 10:45AM Jon Slater tt MD [facility] Lab None recorded. ? ? Referral None recorded. ? ? Procedures None recorded. ? ? Surgeries None recorded. ? ? Imaging None recorded. ? ? Medications Name Start Date ? ? diphenhydramine 25 mg tablet ? Take 1 tablet every 4 hours by oral route. ID NOW COVID-19 Test Kit ? TEST DIRECTED metoclopramide 10 mg tablet ? TAKE 1 TABLET BY MOUTH EVERY 6 HOURS NEEDED FOR NA USEA OR VOMITING ? Medications Administered None recorded. Vitals Height Weight BMI Blood Pressure 5 ft 7 in 174 lbs 27.3 kg/m2 (1) 148/99 mm[H g] (2) 144/64 mm[Hg ] Results Lab Results None recorded. Allergies Code Code System Name Reaction Severity Onset 2670 RxNorm Codeine ? ? ? Penicillins ? ? ? Problems Name Status Onset Date Source ? Active 05/19/2021 ? Procedures Date Name Performed by ? 05/08/2016 Arm Destructive Procedure Information no t available 10/13/2021 US, Obstetric
--- OUTSIDE RECORDS SUMMARY | 2021-11-16 05:37 | XMS_ITS | Encounter Summary ---
:1985 Author Care Team Providers Name Role Phone Radha Rutherford Primary Care Provider [phone] Reason for Visit OB visit Assessment and Plan Assessment Note Patient is ___weeks . Discussed plan. 1. Routine care Discussion Note: None recorded.Patient educational handouts: No [...] BMI Blood Pressure 5 ft 7 in 170 lbs 26.6 kg/m2 114/80 mm[Hg] Results Lab Results None recorded. Allergies Code Code System Name Reaction Severity Onset 3540 RxNorm Codeine ? ? ? Penicillins ? ? ? Problems Name Status Onset Date Source ? Active 05/19/2021 ? Procedures Date Name Performed by ? 05/08/2016 Arm Destructive Procedure Information no t available 10/13/2021 , Obstetric, Follow-up [place] [id number]
--- OUTSIDE RECORDS SUMMARY | 2021-11-16 05:37 | XMS_ITS ---
:1985 Author Care Team Providers Name Role Phone CRISS CANTU Primary Care Provider [phone] Allergies Code Code System Name Reaction Severity Status Onset 2670 RxNorm Codeine ? ? Active ? Penicillins ? ? Active ? Medications Name Status Start Date Stop Date ? ? Adderall XR 20 mg capsule,extended release Completed ? 05/19/2021 amitriptyline 25 mg tablet Completed ? 09/02 TAKE 1 TABLET BY MOUTH EVERY NIGHT AT BEDTIME atomoxetine 10 mg capsule Completed ? 2020 take 2 capsule by oral route 2 times every day atomoxetine 60 mg capsule Completed ? 2019 azithromycin 250 mg tablet Completed ? 09/15 but/apap/caf tab Completed ? 10/21/2019 xyedwhwhwr-fyzugpbfhxiqu-jvwjqzkx 50 mg-300 mg-40 mg capsule Com pleted ? 09/15/2021 TAKE ONE CAPSULE BY MOUTH EVERY 6 TO 8 HOURS ralujwimmd-olfikmpktamds-shgasrhi 50 mg-325 mg-40 mg Completed ? 09/02/2020 tablet cefdinir 300 mg capsule Completed ? 09/16/19 TAKE 1 CAPSULE BY MOUTH TWICE DAILY FOR 10 DAYS Ciprodex 0.3 %-0.1 % ear drops,suspension Completed ? 09/15/2021 SHAKE LIQUID AND INSTILL 4 DROPS TO AFFECTED EAR EVERY 12 HOURS FOR 7 DAYS dextroamphetamine-amphetamine 10 mg tablet Completed ? 09/15/2021 diphenhydramine 25 mg tablet Active ? Not available Take 1 tablet every 4 hours by oral route. fluconazole 150 mg tablet Completed ? 2020 ibuprofen 600 mg tablet Completed ? 09/03/19 21 ID NOW COVID-19 Test Kit Active ? Not ivan ilable TEST DIRECTED metoclopramide 10 mg tablet Active ? Not available TAKE 1 TABLET BY MOUTH EVER
--- OUTSIDE RECORDS SUMMARY | 2021-11-16 05:37 | XMS_ITS | Encounter Summary ---
:1985 Author Care Team Providers Name Role Phone Radha Rutherford Primary Care Provider [phone] Reason for Visit OB visit OB [id number] EDC 12/07/2021 LMP 03/02/2021 Assessment and Plan Assessment Note Patient is _28__weeks . Discuss ed plan. 1. Routine care Discussion Note: None [...] BMI Blood Pressure 5 ft 7 in 162 lbs 25.4 kg/m2 121/83 mm[Hg] Results Lab Results None recorded. Allergies Code Code System Name Reaction Severity Onset 2670 RxNorm Codeine ? ? ? Penicillins ? ? ? Problems Name Status Onset Date Source ? Active 05/19/2021 ? Procedures Date Name Performed by ? 05/08/2016 Arm Destructive Procedure Information no t available 09/02/2021 US, Obstetric, Fo
--- OUTSIDE RECORDS SUMMARY | 2021-11-16 05:37 | XMS_ITS | Encounter Summary ---
:1985 Author Care Team Providers Name Role Phone Radha Rutherford Primary Care Provider [phone] Reason for Visit None recorded. Assessment and Plan 1. Chronic hypertension complicating AN D/OR reason for care during ? US, obstetric, follow-up Discussion Note: None recorded.Patient educational handouts: No information available. Plan of Care Reminders Provider Appointments Surg Post Op 11/25/2021 10:45AM Jon Rebolledo MD Lab None recorded. ? ? Referral None recorded. ? ? Procedures None recorded. ? ? Surgeries None recorded. ? ? Imaging US, Obstetric, 10/13/2021 [place] Follow-up Medications Name Start Date ? ? diphenhydramine 25 mg tablet ? Take 1 tablet every 4 hours by oral route. ID NOW COVID-19 Test Kit ? TEST DIRECTED metoclopramide 10 mg tablet ? TAKE 1 TABLET BY MOUTH EVERY 6 HOURS NEEDED FOR NA USEA OR VOMITING ? Medications Administered None recorded. Vitals None recorded. Results Lab Results None recorded. Allergies Code Code System Name Reaction Severity Onset 4610 RxNorm Codeine ? ? ? Penicillins ? ? ? Problems Name Status Onset Date Source ? Active 05/19/2021 ? Procedures Date Name Performed by ? 05/08/2016 Arm Destructive Procedure Information no t available 10/13/2021 US, Obstetric, Follow-up [place] [address]
--- OUTSIDE RECORDS SUMMARY | 2021-11-16 05:37 | XMS_ITS | Encounter Summary ---
:1985 Author Care Team Providers Name Role Phone Radha Rutherford Primary Care Provider [phone] Reason for Visit OB visit Assessment and Plan Assessment Note Patient is ___weeks . Discussed plan. 1. Nausea and vomiting ? Reglan 10 mg tablet ? diphenhydramine 25 mg tablet 2. Routine care Discussion Note: None recorded.Patient educational [...] BMI Blood Pressure 5 ft 7 in 173 lbs 27.1 kg/m2 125/94 mm[Hg] Results Lab Results None recorded. Allergies Code Code System Name Reaction Severity Onset 1490 RxNorm Codeine ? ? ? Penicillins ? ? ? Problems Name Status Onset Date Source ? Active 05/19/2021 ? Procedures Date Name Performed by ?
--- OUTSIDE RECORDS SUMMARY | 2021-11-16 05:37 | XMS_ITS | Encounter Summary ---
:1985 Author Care Team Providers Name Role Phone Radha Rutherford Primary Care Provider [phone] Reason for Visit None recorded. Assessment and Plan 1. screening ? US, obstetric, follow-up Discussion Note: None recorded.Patient educational handouts: No information available. Plan of Care Reminders Provider Appointments Surg Post Op 11/25/2021 10:45AM Jon Slater tt MD [facility] None recorded. ? ? Referral None recorded. ? ? Procedures None recorded. ? ? Surgeries None recorded. ? ? Imaging US, Obstetric, 09/02/2021 [place] Follow-up Medications Name Start Date ? ? [...] Information no t available 09/02/2021 US, Obstetric, Follow-up [place] [address] [place] [address]-
[2021-11-16 06:22] LABS: Basophils Percent Auto 0.2 % (0.2-1.2); Eosinophils Absolute Auto 0.1 K/mm3 (0-0.3); Eosinophils Percent Auto 0.6 % (0-4.4); Hematocrit 38.1 % (37.0-47.0); Hemoglobin 12.1 g/dL (12.0-15.0); Immature Granulocyte Absolute 0.04 K/mm3 (0.00-0.031); Immature Granulocyte Percent A 0.5 % (0-0.5); Lymphocytes Percent Auto 20.8 % (18.3-44.2); Mean Corpuscular HGB Conc 31.8 g/dl (32-36); Mean Corpuscular Hemoglobin 27.1 pg (26-34); Mean Corpuscular Volume 85.2 fl (80-100); Monocytes Absolute Auto 0.7 K/mm3 (0.1-0.6); Monocytes Percent Auto 8.1 % (2.6-8.5); Neutrophils Percent Auto 69.8 % (45.5-73.1); Platelet Count Result 248 k/mm3 (150-375); Red Blood Count 4.47 M/mm3 (4.2-5.4); Red Cell Distribution Width 12.9 % (11.5-14.5); White Blood Count 8.6 K/mm3 (4.5-10.0)
--- NOTE | 2021-11-16 06:57 | LDADM ---
This patient, Guillermina Velez, was admitted to Delivery/Recovery 120 on 11/16/21 at 05:33. Plans for section, pain management and were discussed with patient. Patient/family oriented to hospital policies and general routines including ID bracelet, bed and alarms, visiting hours, pain management, procedures, bathroom and other care routines, personal items, smoking policy, room service/diet and guest tray routines, infant security routines, and visiting hours. Patient/Family are encouraged to report perceived risks to care and to ask questions if they do not understand what they are told or what they should do. See OBIX for further documentation.
[2021-11-16] MEDS: LACTATED RINGERS 1,000 ML 999 ML IV CONT (07:13)
--- NOTE | 2021-11-16 07:14 | PM.IMHP ---
H&P: HPI History of Present Illness Date/Time: 11/16/21 07:14 Chief Complaint: Term , breech Narrative: The patient is a 36-year-old 2 para 1001 at 39 weeks gestation who presents for delivery. Agreed to perform . She understands that injuries may occur during the surgery that result in hospitalization, more surgery, severe illness. She understands there is risk of infection and hemorrhage. She denies any loss of fluid or vaginal bleeding. She denies any contractions. She denies any nausea, vomiting, fever, chills. She denies any chest pain shortness of breath. Review of Systems Review of Systems: All systems reviewed & are unremarkable except as noted in HPI and below Constitutional: Constitutional: Denies chills, Denies fatigue, Denies fever(s) and Denies weakness Eyes: Eyes: Denies blurry vision, Denies change in vision, Denies loss of peripheral vision, Denies loss of vision, Denies other visual disturbances and Denies eye pain ENT: Denies vertigo, Denies dizziness, Denies hearing loss, Denies mouth pain, Denies nasal obstruction, Denies neck mass and Denies neck pain Cardiovascular: Cardiovascular: Denies chest pain, Denies diaphoresis, Denies syncope, Denies leg edema and Denies dyspnea Respiratory: Respiratory: Denies chest congestion, Denies cough, Denies hemoptysis, Denies dyspnea and Denies wheezing Gastrointestinal: Gastrointestinal: Denies abdominal pain, Denies constipation, Denies diarrhea, Denies nausea and Denies vomiting Genitourinary: Genitourinary: Denies hematuria, Denies change in libido, Denies nocturia, Denies genital lesions, Denies flank pain and Denies urinary urgency Musculoskeletal: Musculoskeletal: Denies abnormal gait, Denies back pain, Denies myalgias, Denies arthralgias, Denies joint swelling, Denies muscle weakness and Denies neck pain Integumentary/Breasts: Skin/Breast: Denies swelling, Denies breast pain, Denies breast mass, Denies dry skin, Denies nipple discharge, Denies unusual bruising and Denies jaundice Neurologic: Denies Neuro-related abnormal movements, Denies Abnormal speech present, Denies abnormal gait, Denies behavioral changes, Denies confusion, Denies vertigo, Denies dizziness, Denies syncope, Denies loss of vision, Denies memory loss, Denies convulsions and Denies weakness Psychiatric: Psychiatric: Denies abnormal sleep pattern, Denies behavioral changes, Denies change in libido, Denies confusion, Denies depression, Denies anhedonia and Denies memory loss Endocrine: Endocrine: Reports no additional endocrine complaints, Denies change in libido and Denies fatigue Hematologic/Lymphatic: Hematologic/Lymphatic: Reports no additional hematologic/lymphatic complaints Allergic/Immunologic: Allergic/Immunologic: Reports no additional allergic/immunologic complaints and Denies wheezing PMFSH Past Medical History Medical History (Updated 11/16/21 @ 07:19 by Jennifer Rebolledo MD) Anxiety Gestational hypertension Headache atony of uterus with hemorrhage Family History Family History Father Lung cancer Sibling Breast cancer in male Grandparent Breast cancer in female Social History Social History Smoking status: Never smoker Alcohol intake: never Substance use: never Spiritual care concerns: No Meds Home Medications and Allergies Home Medications Medication Instructions Recorded Confirmed Type prenat.vits,hong,syq-zwvo-jhvlx 1 tablet PO DAILY 11/05/21 11/12/21 History Allergies Allergy/AdvReac Type Severity Reaction Status Date / Time Penicillins Allergy Rash Verified 11/05/21 15:53 codeine AdvReac Mild Nausea Verified 11/10/21 10:55 Vital Signs Vital Signs - 24 hr 11/16/21 05:57 11/16/21 06:32 Pulse Rate 86 Blood Pressure 125/92 H Oxygen Delivery Room Air Exam Const: General:
--- NOTE | 2021-11-16 07:20 | WPDHPUPDATE1 ---
History and Physical Update Update Date/Time: 11/16/21 07:20 History and Physical has been reviewed, including an updated exam of the patient. There are NO changes in the patient's condition. Risks, benefits, and alternatives have been discussed and questions answered. Patient agrees to proceed with procedure.
[2021-11-16 07:27] LABS: Hepatitis B Surface Antigen Negative (Negative)
[2021-11-16 07:28] LABS: Rubella IgG Antibody 7.6 IU/ML
[2021-11-16] MEDS: ceFAZolin 2 GM/D5W 50 ML 2 GM/50 ML BAG IVPB (07:30)
[2021-11-16 07:50] LABS: Rapid Plasma Reagin Non-Reactive (NonReactive)
[2021-11-16] MEDS: KETOROLAC 30 MG/ML VIAL (*BKC) IV PUSH ×3 (07:55→21:28)
--- NOTE | 2021-11-16 08:57 | W.PM.PROC2 ---
Procedure Note - Detailed Date of Procedure 11/16/21 Pre-op Diagnosis Breech presentation, term Post-op Diagnosis Same Procedure Performed Low-transverse section Surgeon Jennifer Rebolledo MD Anesthesia Spinal Indications Breech presentation Findings Normal gestational maternal anatomy, average size , normal Apgars. Description of Procedure The patient was taken the operating room. She was prepped and draped in dorsal supine position with a leftward tilt. This was done after spinal anesthetic was applied. A low-transverse skin incision was made and carried down till of the fascia with the knife. The fascial incision was made with the knife. The fascial incision was extended laterally with Tolentino scissors. The fascia was tented upward superiorly and inferiorly the rectus muscles were dissected off bluntly. The rectus muscles were the midline. The preperitoneal fat and peritoneum were dissected open bluntly at the superior aspect of the rectus muscles. The peritoneal incision was extended superior and inferior with good position of bladder. The uterine incision was made with a scalpel down to the level of the amniotic cavity. The amniotic cavity was entered bluntly. The infant was delivered. The cord was clamped and cut and the infant was handed off to waiting pediatric staff. Cord bloods were obtained. The placenta was removed manually. The uterus was exteriorized. The uterus was cleared of all clots, debris and membranes. The uterus was closed in 0 Vicryl running lock fashion. An imbricating over a was placed along the incision line as well. The uterus was returned to the abdomen. The gutters were cleared of all clots and debris. The fascia was closed with 0 Vicryl running fashion. The subcutaneous tissue was irrigated pinpoint bleeders were cauterized. The skin was closed with subcuticular 4 Monocryl. The skin incision line was covered with glue. The patient tolerated the procedure well. She was taken recovery room in stable condition. Sponge lap and needle counts were correct x2. Estimated Blood Loss -510.0 Urine Output -200.0 Complications No immediate complications Condition Stable Disposition PACU
[2021-11-16 10:02] LABS: Amphetamine Screen Urine Negative (Negative); Barbiturate Screen Urine Negative (Negative); Benzodiazepines Screen Urine Negative (Negative); Cannabinoid Screen Urine Negative (Negative); Cocaine Screen Urine Negative (Negative); Methadone Screen Urine Negative (Negative); Opiate Screen Urine Negative (Negative); Phencyclidine Screen Urine Negative (Negative)
[2021-11-16] MEDS: MORPHINE SULFATE INJ (*CRX) 10 MG/ML AMP 2 MG IV PUSH ×3 (10:17→10:38)
[2021-11-16] MEDS: OXYTOCIN 30 UNITS/NS 500 ML 30 UNITS/500 ML BAG 125 UNITS IV CONT (10:18)
--- NOTE | 2021-11-16 11:11 | PC.NURSE ---
Patient transferred to post room #287 via stretcher. Support person present. Oriented to unit, room, information board, rooming in, admission packet and security measures. Patient verbalizes understanding.
[2021-11-16] MEDS: DEXTROSE 5%/0.45% SOD CHL 1,000 ML 125 ML IV CONT (14:56)
[2021-11-16] MEDS: HYDROcodone/acetaminophen (*CRX) 5-325 MG TABLET 1 TAB PO (21:27)
[2021-11-17] MEDS: HYDROcodone/acetaminophen (*CRX) 5-325 MG TABLET 1 TAB PO ×6 (04:09→21:12)
[2021-11-17] MEDS: IBUPROFEN 600 MG TABLET PO ×3 (04:09→18:58)
[2021-11-17 04:20] VITALS: BP 136/81; PULSE 69; RESP 16; TEMP 36.1
[2021-11-17] MEDS: SIMETHICONE 80 MG TAB.CHEW PO ×2 (07:27→11:12)
--- NOTE | 2021-11-17 07:43 | P.PNOB_ITS ---
OB - PN: Subj Subjective Date/time seen: 11/17/21 07:43 Patient comments: no complaints, pain well controlled, tolerating diet and flatus present OB - PN: Obj Data Labs CBC & Chem 7: 11/16/21 05:55 Labs: Laboratory Results - last 24 hr 11/16/21 11/16/21 05:55 09:30 Urine Opiates Screen Negative Urine Methadone Screen Negative Ur Barbiturates Screen Negative Ur Phencyclidine Scrn Negative Ur Amphetamine Screen Negative U Benzodiazepines Scrn Negative Urine Cocaine Screen Negative U Cannabinoids Screen Negative RPR Non-reactive OB - PN A/P Plan day: 1 Comments: Post Op LTCS - no problems, routine recovery Time Spent With Patient Time: Total time spent is greater than 50% in coordination of care (as documented) at patient's floor/unit and/or counseling patient: Exam Const: General: cooperative, healthy appearing, comfortable and no acute distr ess Resp: Auscultation: no crackles, no rales, no rhonchi and no wheezes Cardio: Rhythm: regular rhythm Heart sounds: no click and no murmurs GI: Inspection: non-distended Auscultation: normal bowel sounds Extrem: General: normal to inspection, no pedal edema and no calf tenderness
[2021-11-17 07:55] VITALS: BP 105/58; PULSE 77; RESP 16; TEMP 36.2; O2SAT 99
[2021-11-17 08:07] LABS: Basophils Percent Auto 0.3 % (0.2-1.2); Eosinophils Percent Auto 0.3 % (0-4.4); Hematocrit 32.8 % (37.0-47.0); Hemoglobin 10.6 g/dL (12.0-15.0); Immature Granulocyte Absolute 0.07 K/mm3 (0.00-0.031); Immature Granulocyte Percent A 0.5 % (0-0.5); Lymphocytes Absolute Auto 1.44 K/mm3 (0.9-3.2); Lymphocytes Percent Auto 10.7 % (18.3-44.2); Mean Corpuscular HGB Conc 32.3 g/dl (32-36); Mean Corpuscular Hemoglobin 27.5 pg (26-34); Mean Platelet Volume 10.5 fl (7.4-10.4); Monocytes Absolute Auto 0.7 K/mm3 (0.1-0.6); Monocytes Percent Auto 5.4 % (2.6-8.5); Neutrophils Absolute Auto 11.1 K/mm3 (1.3-6.7); Neutrophils Percent Auto 82.8 % (45.5-73.1); Platelet Count Result 223 k/mm3 (150-375); Red Blood Count 3.86 M/mm3 (4.2-5.4); White Blood Count 13.4 K/mm3 (4.5-10.0)
[2021-11-17] MEDS: DOCUSATE SODIUM 100 MG CAPSULE PO ×2 (08:35→17:13)
[2021-11-17] MEDS: MULTIVIT/MIN/PREN/FOL AC/IRON TABLET 1 TAB PO (08:35)
--- NOTE | 2021-11-17 09:15 | WPDANLDNPN2 ---
Anes-Prog Note L&D-Neuraxial Date/Time: 11/17/21 09:15 Patient feedback: Patient satisfied with post-operative pain management.
--- NOTE | 2021-11-17 09:15 | WPDANLDPN2 ---
Anes-Prog Note L&D Date/Time: 11/17/21 09:15 Neuro status: Neuro function grossly intact. Vital Signs: Last Vital Signs Temp 36.2 C L 11/17/21 07:55 Pulse 77 11/17/21 07:55 Resp 16 11/17/21 07:55 BP 105/58 L 11/17/21 07:55 Pulse Ox 99 11/17/21 07:55 O2 Del Method Room Air 11/17/21 07:00 Pain score (VAS): 0 I/O: Intake & Output 11/16/21 11/17/21 11/17/21 23:59 07:59 15:59 Intake Total 500 1000 100 Output Total 1500 1700 Balance -1000 -700 100 Patient feedback: Patient satisfied with anesthetic care.
[2021-11-17 11:26] VITALS: BP 130/84; PULSE 74; RESP 16; TEMP 36.4; O2SAT 100
[2021-11-17 15:15] VITALS: BP 131/86; PULSE 76
--- NOTE | 2021-11-17 16:51 | PC.NURSE ---
[id number] Introductions were made and RN consults with patient to assess needs related to . Mother led conversation with her experience with feeding baby so far and states she is not feeling as well after a C/S as after her prior vaginal delivery and finds herself second guessing how things are going. Mother works well with her infant. Reviewed working with infant, breast, nipples and how to protect the nipples with an optimal deep latch, good positioning, and good hand washing. Encouraged understanding the benefits of skin to skin, responding to feeding cues, frequencies of feeding 8-12 times in 24 hours (approximately 2-3 hours), duration of feedings, milk production, intake/output feeding sheet and signs of adequate intake encouraging swallowing at the breast. Reviewed positioning and alignment, supporting breast, off-centered (asymmetrical latch) and leading with the chin with big open wide gape. latched optimally to the right breast in cross cradle position. Education given to mother of how to visualize suck/swallow ratios and drinking at the breast. was able to maintain latch without discomfort to mother. Nipple care reviewed with optimal latch and good positioning. Reassured mother that will breastfeed about every 2-3 hours and might attempt to sleep through feedings. Mother was encouraged to actively closer to 2 - 2.5 hours while awake getting to swallow. Resources used to facilitate learning were used from the visual handout/mom and baby guide. Mother voiced understanding of the education shared, calling for assistance if the does not latch or if there is discomfort with . Reported to the primary RN.
[2021-11-17 21:20] VITALS: BP 117/79; PULSE 77; RESP 20; TEMP 36.7
[2021-11-18] MEDS: SIMETHICONE 80 MG TAB.CHEW PO ×2 (03:27→20:42)
[2021-11-18] MEDS: HYDROcodone/acetaminophen (*CRX) 5-325 MG TABLET 1 TAB PO ×5 (03:27→20:42)
[2021-11-18] MEDS: IBUPROFEN 600 MG TABLET PO ×3 (03:28→20:43)
[2021-11-18 03:32] VITALS: BP 110/87
--- NOTE | 2021-11-18 08:00 | P.PNOB_ITS ---
OB - PN: Subj Subjective Date/time seen: 11/18/21 08:00 Patient comments: no complaints, pain well controlled, incisional pain, tolerating diet and flatus present OB - PN: Obj Data Labs CBC & Chem 7: 11/17/21 07:50 Labs: Laboratory Results - last 24 hr 11/17/21 07:50 WBC 13.4 H RBC 3.86 L Hgb 10.6 L Hct 32.8 L MCV 85.0 MCH 27.5 MCHC 32.3 RDW 13.0 Plt Count 223 MPV 10.5 H Immature Gran % (Auto) 0.5 Neut % (Auto) 82.8 H Lymph % (Auto) 10.7 L [place] % (Auto) 5.4 Eos % (Auto) 0.3 Baso % (Auto) 0.3 Lymph # (Auto) 1.44 [place] # (Auto) 0.7 H Eos # (Auto) 0.0 Baso # (Auto) 0.0 Abs Immat Gran (auto) 0.07 H Absolute Neuts (auto) 11.1 H Absolute Nucleated RBC 0.0 Nucleated RBC % 0.0 OB - PN A/P Plan day: 2 Plan: routine care Comments: POD#2 LTCS - no problems, Time Spent With Patient Time: Total time spent is greater than 50% in coordination of care (as documented) at patient's floor/unit and/or counseling patient: Exam Const: General: comfortable, no acute distress and alert Resp: Effort & Inspection: normal respiratory effort Auscultation: no crackles, no rales and no rhonchi Cardio: Rate: regular rate Heart sounds: no click, no murmurs and no rubs GI: Inspection: non-distended GI Palp: No Tenderness to palpation present (GI) Auscultation: normal bowel sounds Other: Incision - CDI Extrem: General: normal to inspection, no pedal edema and no calf tenderness
[2021-11-18 08:05] VITALS: BP 118/82; PULSE 78; RESP 18; TEMP 36.4; O2SAT 100
[2021-11-18] MEDS: MULTIVIT/MIN/PREN/FOL AC/IRON TABLET 1 TAB PO (09:01)
[2021-11-18] MEDS: DOCUSATE SODIUM 100 MG CAPSULE PO ×2 (09:01→16:59)
[2021-11-18] MEDS: diphenhydrAMINE HCl CAP 25 MG CAPSULE PO (09:48)
[2021-11-18] MEDS: METOCLOPRAMIDE HCL 10 MG TABLET PO (09:48)
[2021-11-18 12:11] VITALS: BP 123/68; PULSE 107; RESP 18; TEMP 36.6; O2SAT 100
[2021-11-18 15:20] VITALS: BP 115/76; PULSE 88
[2021-11-18 21:31] VITALS: BP 126/76; PULSE 83; RESP 18; TEMP 36.8; O2SAT 100
[2021-11-19] MEDS: diphenhydrAMINE HCl CAP 25 MG CAPSULE PO (01:07)
[2021-11-19] MEDS: SIMETHICONE 80 MG TAB.CHEW PO (01:07)
[2021-11-19] MEDS: HYDROcodone/acetaminophen (*CRX) 5-325 MG TABLET 1 TAB PO ×2 (01:08→06:58)
[2021-11-19] MEDS: METOCLOPRAMIDE HCL 10 MG TABLET PO (01:08)
[2021-11-19 04:59] VITALS: BP 127/87
[2021-11-19] MEDS: MULTIVIT/MIN/PREN/FOL AC/IRON TABLET 1 TAB PO (06:58)
[2021-11-19] MEDS: IBUPROFEN 600 MG TABLET PO (06:58)
[2021-11-19] MEDS: DOCUSATE SODIUM 100 MG CAPSULE PO (06:58)
--- NOTE | 2021-11-19 07:30 | PM.OBPNVD ---
OB - PN: Subj Subjective Date/time seen: 11/19/21 07:30 day 2 s/p vaginal delivery OB - PN: Obj Data Labs CBC & Chem 7: 11/17/21 07:50 OB - PN A/P Plan day: 2 Time Spent With Patient Time: Total time spent is greater than 50% in coordination of care (as documented) at patient's floor/unit and/or counseling patient: Review of Systems Review of Systems: All systems reviewed & are unremarkable except as noted in HPI and below Exam Narrative: incision CDI Const: General: cooperative, healthy appearing and comfortable
--- NOTE | 2021-11-19 07:33 | PM.OBDSVD ---
DS: Admitting Diagnosis Discharge Date 11/19/21 Admitting Diagnosis primary , GHTN OB - DS: Summary OB Procedures : None OB Procedures Intrapartum: OB Procedures: : None Peripartum Data Procedures: Procedures Operation Date: 11/16/21 07:30 Actual Procedure Side Surgeon p Section Jennifer Rebolledo MD Time Spent with Patient Time attestation: Total time spent providing and/or coordinating discharge services: Discharge Plan Discharge Attending physician on discharge: Jennifer Rebolledo Discharging Clinician: Kamille Thomas Patient Disposition: Home, Self-Care Activity: pelvic rest Diet: regular Patient Instructions: Antibiotic Form Stand Alone Forms: General Discharge Information Follow-up/Referrals: Jennifer Rebolledo MD [Physician] - 1 Week Discharge Medications: New hydrocodone-acetaminophen 5-325 mg Tablet 1 tablet PO Q3H PRN (Reason: Moderate Pain (4-6)) Qty: 30 0RF Continued #2 Tablet 1 tablet PO DAILY Date of admission: 11/16/21 05:33 Primary Care Provider: UNKNOWN,DOCTOR Admitting Provider: Jennifer Rebolledo Attending physician on admission: Jennifer Rebolledo Condition: Stable
[2021-11-19 07:40] VITALS: BP 114/76; PULSE 87; RESP 16; TEMP 36.6; O2SAT 100
[2021-11-19] MEDS: HYDROcodone/acetaminophen (*CRX) 10-325 MG TABLET 1 TAB PO (11:46)
[2021-11-19] MEDS: MEASLES,MUMPS,RUBELLA VACCINE 0.5 ML VIAL SUB-Q (11:47)
--- NOTE | 2021-11-19 12:00 | PC.NURSE ---
Patient received instruction on viewing the discharge video Mother & Baby Care, The First Two Weeks . Patient was given the opportunity and encouraged to ask questions. Patient verbalized understanding of information shared and has been given the mother/baby guide for home reference.
--- NOTE | 2021-11-19 15:35 | PC.NURSE ---
[id number] Consulted with patient to assess needs related to . Mother led conversation with her experience with feeding baby so far and states she feels her breast filling with milk. Mother works well with her with encouragement. Reviewed working with infant, breast, nipples and how to protect the nipples with an optimal deep latch, good positioning, and good hand washing. Encouraged understanding the benefits of skin to skin, responding to feeding cues, frequencies of feeding 8-12 times in 24 hours (approximately 2-3 hours), duration of feedings, milk production, intake/output feeding sheet and signs of adequate intake encouraging swallowing at the breast. Reviewed positioning and alignment, supporting breast, off-centered (asymmetrical latch) and leading with the chin with big open wide gape. latched optimally to the left breast in cross cradle position. Education given to mother of how to visualize suck/swallow ratios and drinking at the breast. was able to maintain latch without discomfort to mother. Nipple care reviewed with optimal latch and good positioning. has had appropriate feedings in the last 24 hours meets the outcomes for weight, output and jaundice at this time. Mother had a headache and allowed a long stretch between feedings. Mother voiced understanding of closing the gap of intentionally infant actively every 2-3 hours. She has a history with her first child states she is confident to continue effectively her at home or when to call for assistance and denies any additional assistance or education at this time. Reinforced understanding of milk production, transition of milk, signs of adequate intake, prevention/relief of engorgement, responsive after visualizing feeding cues, the different methods of stimulating infant to breastfeed 2-3 hours after the start of the last feeding, community resources, medication information reviewed per [employer] and when to call a provider using the resource of the mom and baby guide/[facility] website. Mother voiced understanding of the education shared. Reported to the primary RN.
[2021-11-20 10:05] VITALS: BP 134/92; PULSE 86; RESP 20; TEMP 36.9; O2SAT 99
== END 2021-11-19 12:28 | disposition home or self-care (01) | DRG 788 ==
LOC: ANHLDR 05:36 → ANHOB2 11:33
PROVIDERS: Admitting Provider Obstetrics & Gynecology; Visit Provider Obstetrics & Gynecology
PROC: 10D00Z1 Extraction of Products of Conception, Low, Open Approach (ICD-10-PCS; CPT 59514; principal; 2021-11-16 07:30)
DX: O32.1XX0 Maternal care for breech presentation, not applicable or unspecified (principal); O13.4 Gestational [pregnancy-induced] hypertension without significant proteinuria, complicating childbirth; Z3A.39 39 weeks gestation of pregnancy; Z37.0 Single live birth
CPT/HCPCS: 36415; 80307; 85025; 86592; 86762; 86850; 86900; 86901; 87340; 90710; A9270; J0131; J0690; J1885; J2250; J2270; J2274; J2370; J2405; J2590; J7120

== ENCOUNTER 2022-05-09 13:15 | Emergency (ER) | payer OTHER, SELFPAY ==
[2022-05-09 14:13] VITALS: BP 118/80; PULSE 88; RESP 16; TEMP 36.8; O2SAT 100
--- NOTE | 2022-05-09 15:44 | ED.GENADULT ---
HPI - General Adult General Chief complaint: Upper Respiratory Infection Stated complaint: cold flu Source: patient Mode of arrival: ambulatory Limitations: no limitations History of Present Illness HPI narrative: Patient presents for evaluation of sick symptoms since 04/29/2022. Symptoms include left-sided ear pain/pressure, sinus congestion, mucopurulent discharge from her nares cough, sore throat, headache and jaw pain. She states she feels like her left ear is going to pop off. Denies any tinnitus or hearing loss. No drainage from left ear. Her children both have similar symptoms were diagnosed with sinusitis. She has purchased many cgee-wza-ftyjxnw agents including Mucinex, cough and cold medication, none of which have provided her with much relief. She does not smoke. She has had COVID in the past. No vomiting or diarrhea. She has some nausea which she attributes to postnasal drainage. Related Data Home Medications Medication Instructions Recorded Confirmed dextroamphetamine-amphetamine 10 10 mg PO DAILY 05/09/22 05/09/22 mg tablet dextroamphetamine-amphetamine ER 20 mg PO DAILY 05/09/22 05/09/22 20 mg 24hr capsule,extend release (Adderall XR) temazepam 30 mg capsule 30 mg PO HS 05/09/22 05/09/22 venlafaxine 150 mg 150 mg PO DAILY 05/09/22 05/09/22 capsule,extended release 24 hr Allergies Allergy/AdvReac Type Severity Reaction Status Date / Time No Known Allergies Allergy Verified 05/09/22 14:10 Review of Systems Review of Systems: CONSTITUTIONAL: Denies fever, chills, or sweats. EYES: Denies visual changes, redness, or discharge. ENT: Reports sinus congestion, mucopurulent discharge from the nares, sore throat, left-sided otalgia/pressure CARDIOVASCULAR: Denies chest pain, palpitations, or edema. RESPIRATORY: Reports cough. Denies shortness of breath. GASTROINTESTINAL: Reports nausea. Denies abdominal pain, vomiting, or diarrhea. GENITOURINARY: Denies dysuria or hematuria. SKIN: Denies rash or itching. MUSCULOSKELETAL: Denies back pain, joint pain, or myalgia. NEUROLOGIC: Reports headache. Denies numbness, dizziness, or weakness. PSYCHIATRIC: Denies anxiety or depression. [facility] Past Medical History Medical History (Updated 05/09/22 @ 15:46 by CATHERINE [place], ) No pertinent past medical history Surgical History Surgical History No pertinent past surgical history Family History Family History Mother Family history non-contributory Social History Social History Smoking status: Never smoker Substance use: never Gender identity (if verbalized by the patient): Female Sexual Orientation (if Verbalized by the Patient): Straight or Heterosexual Spiritual care concerns: No Exam Narrative: GENERAL: Well-appearing, well-nourished, and in no acute distress. HEAD: Normocephalic, atraumatic. EYES: PERRLA and EOMI. ENT: Nares clear, no rhinorrhea or epistaxis. Mucous membranes moist. There is erythema in the posterior pharynx without exudate. Uvula is midline. There is thick yellow exudate behind the left TM with erythema and bulging NECK: Supple. No adenopathy or masses. No carotid bruits or JVD CHEST: Clear to auscultation. No respiratory distress. No wheezes rales or rhonchi HEART: Regular rate and rhythm. No murmur heard. Normal peripheral pulses. ABDOMEN: Soft, nontender, nondistended, normal active bowel sounds. EXTREMITIES: Normal range of motion. No edema. SKIN: Warm, dry, no rash. NEURO: No focal deficits. Alert and oriented x3. PSYCH: Normal mood and affect. Course Course Emergency Course: This is a 37-year-old female who presented for evaluation of left-sided ear pain, mucopurulent discharge from the nares, sore throat and cough. Exam is consistent with otitis media a
== END 2022-05-09 15:47 | disposition home or self-care (01) ==
PROVIDERS: Emergency Provider Nurse Practitioner
DX: J32.9 Chronic sinusitis, unspecified (principal); H66.92 Otitis media, unspecified, left ear; Z86.16 Personal history of COVID-19
CPT/HCPCS: 99213; G0463

== ENCOUNTER 2022-07-05 01:21 | Day surgery (SDC) | payer OTHER, SELFPAY ==
[2022-06-23 11:49] VITALS: BMI 21.9
--- NOTE | 2022-06-23 11:58 | PC.NURSE ---
Report to the Outpatient Waiting Room, entrance under the green pavilion located off [facility], at time 0600 on date 07/05/22. Planned Procedure Time: 0730. Time changes happen often and if your time is changed the preop area will call you the afternoon before. - You and your visitor will be asked to self-screen and do not enter if you have any COVID symptoms. - Only one visitor is requested with a max of two and NO children visitors are allowed at this time. - The patient visitor may be requested to leave or wait in car when not with patient due to distancing restrictions. - A mask is optional within the hospital at this time. Patients may have clear liquids (water, carbonated beverages, clear teas, apple juice) until 3 hours prior to surgery with a maximum of 20 ounces. - No food from midnight until time of surgery Take the following medications with a SIP of water the morning of surgery: VENLAFAXINE DO NOT STOP ANY OF YOUR OTHER PRESCRIPTION MEDICATIONS PRIOR TO SURGERY?EXCEPT THE FOLLOWING Medications to discontinue per physician: N/A Date to take last dose: N/A Please no make-up, nail bruneian, hairspray, perfume, deodorant, or body powder the day of surgery. No jewelry (including any body piercings) or valuables the day of surgery, leave them at home. Please take a shower or bath the night before, or the morning of, surgery with an antibacterial soap. Wear comfortable, loose fitting clothing. - Jewelry must be removed prior to entering the operating room. Rings and piercings that are not removed may be cut off. - The hospital will not accept responsibility for valuables. - Please leave all valuables, including medications, at home the day of surgery. If you are going home after surgery, a licensed mobile lounge driver or operator must drive you home. - NO public transportation without another adult if you receive anesthesia. - We recommend that an adult stay with you for 24 hours following discharge. - We also recommend that you do not drive, make important decision, drink alcoholic beverages, or take any drugs that were not prescribed by your health care provider for at least 24 hours after your discharge time. Follow any additional instructions given to you from your surgeon. If you or anyone in your household have experienced Covid symptoms in the past week, please notify your surgeon or the nurse liaison at the phone number below for possible testing. Telephone instructions given to PT Tamar JOSE and asked if any additional questions and then verbalized understanding. Patient advised to call surgeon office or pre surgery nurse liaison [phone] if any additional questions.
--- NOTE | 2022-07-04 13:23 | PM.IMHP ---
H&P: HPI History of Present Illness Date/Time: 07/04/22 13:23 Chief Complaint: recurrent otitis media chronic otitis media eustachian tube dysfunction Narrative: planned surgical procedure Review of Systems Review of Systems: All systems reviewed & are unremarkable except as noted in HPI and below PMFSH Past Medical History Medical History No pertinent past medical history Surgical History Surgical History No pertinent past surgical history Family History Family History Mother Family history non-contributory Social History Social History (Updated 05/27/22 @ 14:26 by PAUL Slaughter) Smoking status: Never smoker Alcohol intake: current Alcohol use details: RARE Substance use: never Substance use type: does not use Lack of Transportation: No Lack of Food: Never True Current Housing: I Have Housing Concerned About Future Housing: No Difficulty Paying Gas/Electric Bills: No Difficulty Paying for Meds: No Currently Unemployed: No Education: Trade/Vocational Certificate Difficulty w/ Childcare or Family Care: No Living arrangements: with family Gender identity (if verbalized by the patient): Female Sexual Orientation (if Verbalized by the Patient): Straight or Heterosexual Spiritual care concerns: No Meds Home Medications and Allergies Home Medications Medication Instructions Recorded Confirmed Type dextroamphetamine-amphetamine 10 10 mg PO DAILY 05/09/22 06/23/22 History mg tablet dextroamphetamine-amphetamine ER 20 mg PO DAILY 05/09/22 06/23/22 History 20 mg 24hr capsule,extend release (Adderall XR) venlafaxine 150 mg 150 mg PO DAILY 05/09/22 06/23/22 History capsule,extended release 24 hr azelastine 137 mcg (0.1 %) nasal 1 spray intranasal Q12H #30 mL 05/27/22 06/23/22 Rx spray aerosol Allergies Allergy/AdvReac Type Severity Reaction Status Date / Time No Known Allergies Allergy Verified 06/23/22 11:48 Exam Narrative: fluid both sides Assessment and Plan Assessment and plan (1) Recurrent otitis media of both ears: Code(s): H66.93 - Otitis media, unspecified, bilateral Status: Acute Assessment and Plan: ?Plan operating room bilateral myringotomy and T-tube insertion.? Risks were discussed including bleeding infection damage to surrounding structures need for the procedures cholesteatoma facial nerve paralysis persistent perforation failure to resolve symptoms.? Patient voiced understanding and agreed. (2) Dysfunction of both eustachian tubes: Code(s): H69.83 - Other specified disorders of Eustachian tube, bilateral Status: Acute
--- NOTE | 2022-07-04 14:45 | WPDANESEPPF ---
Anes - Initial Pre Proc Eval Procedure: Operation Date: 07/05/22 07:30 Proposed Procedures p Bilateral Myringotomy, Insertion Of T-Tubes - Lewis Fernando MD Date/Time: 07/04/22 14:45 Surgeon: Lewis Fernando MD Pre Op Diagnosis: bilateral otitis media Patient Data Age: 37 Gender: F Height: 1.7 m Weight: 63.5 kg Allergies Allergy/AdvReac Type Severity Reaction Status Date / Time No Known Allergies Allergy Verified 07/05/22 06:14 Home Medications Medication Instructions Recorded Confirmed Type dextroamphetamine-amphetamine 10 10 mg PO DAILY 05/09/22 06/23/22 History mg tablet dextroamphetamine-amphetamine ER 20 mg PO DAILY 05/09/22 06/23/22 History 20 mg 24hr capsule,extend release (Adderall XR) venlafaxine 150 mg 150 mg PO DAILY 05/09/22 06/23/22 History capsule,extended release 24 hr azelastine 137 mcg (0.1 %) nasal 1 spray intranasal Q12H #30 mL 05/27/22 06/23/22 Rx spray aerosol Patient hx anesthesia problems: none Family hx anesthesia problems: none Results Review: All pre-operative results and documents have been reviewed as part of the pre-operative evaluation. [facility] Past Medical History Medical History No pertinent past medical history Surgical History Surgical History No pertinent past surgical history Family History Family History Mother Family history non-contributory Social History Social History (Updated 05/27/22 @ 14:26 by PAUL Slaughter) Smoking status: Never smoker Alcohol intake: current Alcohol use details: RARE Substance use: never Substance use type: does not use Lack of Transportation: No Lack of Food: Never True Current Housing: I Have Housing Concerned About Future Housing: No Difficulty Paying Gas/Electric Bills: No Difficulty Paying for Meds: No Currently Unemployed: No Education: Trade/Vocational Certificate Difficulty w/ Childcare or Family Care: No Living arrangements: with family Gender identity (if verbalized by the patient): Female Sexual Orientation (if Verbalized by the Patient): Straight or Heterosexual Spiritual care concerns: No Anes - Eval Final PreProcedure Day of Procedure 07/04/22 14:45 Patient weight: normal Heart: regular rate and rhythm Lungs: clear to auscultation Airway: Mallampati scale class II Neurological: alert and oriented Last oral intake: >/= 8 hours ASA classification: II Emergent: no Anesthetic plan: proceed Anesthesia type and monitoring: general LMA and standard monitoring Results Review: All pre-operative results and documents have been reviewed as part of the pre-operative evaluation. Informed Consent: The patient's anesthetic plan and its attendant risks and benefits were discussed with the patient/family/POA. Questions were solicited and answers provided to the satisfaction of the patient/family/POA.
[2022-07-05] VITALS (13 sets, daily range): BP systolic 91–156; BP diastolic 59–109; PULSE 56–110; RESP 14–20; TEMP 36.6–37.1; O2SAT 94–100
[2022-07-05] MEDS: LACTATED RINGERS 1,000 ML 30 ML IV CONT ×2 (06:42→08:20)
--- NOTE | 2022-07-05 07:19 | WPDHPUPDATE1 ---
History and Physical Update Update Date/Time: 07/05/22 07:19 History and Physical has been reviewed, including an updated exam of the patient. There are NO changes in the patient's condition. Risks, benefits, and alternatives have been discussed and questions answered. Patient agrees to proceed with procedure.
[2022-07-05] MEDS: CIPROFLOXACIN HCL 0.3% OP SOLN 2.5 ML BTL 4 DROP EACH EAR (07:34)
--- NOTE | 2022-07-05 07:50 | W.PM.PROC2 ---
Procedure Note - Detailed Date of Procedure 07/05/22 Pre-op Diagnosis bilateral otitis media, recurrent otitis media Post-op Diagnosis Same Procedure Performed bilateral myringotomy with T-tube insertion Surgeon Lewis Fernando MD Anesthesia General ( LMA) Indications see above Findings aerated middle ears T-Tube placed in the appropriate position minimal if any bleeding Description of Procedure patient identified consent verified. Patient brought operating room. Time-out performed. General anesthesia induced LMA secured. Patient prepped draped position 2nd time-out performed. Right-sided viewed cerumen removed with alligator forceps. Myringotomy made in the anterior-inferior quadrant T-Tube placed successfully minimal bleeding. The exact same procedure with the exact same findings performed on the left side. This was a bilateral procedure. No complications. Blood loss essentially 0. Care the patient given back to Anesthesiology. I performed all dictated portions of the procedure. Patient taken to PACU. Estimated Blood Loss 0 Drains No Packing No Pathology None sent Complications No immediate complications Condition Stable Disposition PACU [facility] Billing Surgery - Charge Forward: Surgery Billing
[2022-07-05] MEDS: GLYCOPYRROLATE INJ (*SP) 0.2 MG/ML VIAL IV PUSH (07:57)
[2022-07-05] MEDS: flumazeniL 0.5 MG/5 ML VIAL IV PUSH ×4 (08:06→08:11)
[2022-07-05 08:08] LABS: Glucose Point of Care 169 mg/dl (65-105)
[2022-07-05] MEDS: NALOXONE HCL 0.4 MG/ML VIAL IV PUSH (08:16)
--- NOTE | 2022-07-05 08:34 | SUR.PHASEI ---
0825 - pt responding to verbal stimuli. answers questions appropriately. states that she feels very tired. pt able to move extremities when asked.
--- NOTE | 2022-07-05 08:38 | SUR.PHASEI ---
0838 - pt talking with nursing staff. oriented x 3. pt states that she feels very tired.
[2022-07-05] MEDS: ONDANSETRON INJ 4 MG/2 ML VIAL IV PUSH (08:47)
[2022-07-05 09:09] LABS: Amphetamine Screen Urine Negative (Negative); Barbiturate Screen Urine Negative (Negative); Benzodiazepines Screen Urine Positive (Negative); Cannabinoid Screen Urine Negative (Negative); Cocaine Screen Urine Negative (Negative); Methadone Screen Urine Negative (Negative); Opiate Screen Urine Negative (Negative); Phencyclidine Screen Urine Negative (Negative)
[2022-07-05] MEDS: ACETAMINOPHEN 500 MG TABLET 1000 MG PO (10:32)
== END 2022-07-05 10:41 | disposition home or self-care (01) ==
PROVIDERS: Anesthesiology; Visit Provider Otolaryngology
PROC: (CPT 69436; principal; 2022-07-05 07:30)
DX: H66.93 Otitis media, unspecified, bilateral (principal); H69.83 Other specified disorders of Eustachian tube, bilateral; Z79.899 Other long term (current) drug therapy
CPT/HCPCS: 69436; 80307; 82948; A9270; J2250; J2310; J2405; J2704; J3010; J7120

== ENCOUNTER 2022-07-20 06:41 | Outpatient (CLI) | payer OTHER, SELFPAY ==
--- NOTE | 2022-07-20 13:23 | WPDNEUROLOGY ---
Neurology EEG Report General Information Date of Study: 07/20/22 TEST Routine EEG DIAGNOSIS Unspecified convulsions CONDITION OF RECORDING Awake, drowsy EEG NUMBER [id number] CLINICAL HISTORY Patient had a seizure while coming out of anesthesia about a week ago. She has no prior history of seizures and no family history of seizures. EEG DESCRIPTION During the awake state with eyes closed the background consists of 10 Hz posterior dominant rhythm which attenuates appropriately with eye opening. The recording is continuous. There is a well developed anterior-posterior gradient. No significant asymmetries of background activities are noted. With drowsiness there is waxing and waning of the dominant rhythm with eventual replacement by a mixture of beta, alpha, and theta activity. Patient does not enter stage II sleep. There are no epileptiform discharges or seizures during this recording. Photic stimulation did not elicit any abnormal photoparoxysmal response. IMPRESSION This is a normal routine EEG recorded in awake and drowsy states. There are no electrographic seizures identified, nor are there any epileptiform discharges. Please note that a normal EEG cannot exclude a seizure disorder. Clinical correlation is recommended.
== END 2022-07-20 06:42 | disposition home or self-care (01) ==
PROVIDERS: PCP Otolaryngology; Visit Provider Student in an Organized Health Care Education/Training Program
DX: R56.9 Unspecified convulsions (principal)
CPT/HCPCS: 95816

== ENCOUNTER → 2022-07-22 16:30 | Outpatient (CLI) | payer OTHER, SELFPAY ==
--- NOTE | ~2022-07-22 | MR_ITS ---
MRI of the brain Clinical History: Convulsions Technique: Axial and sagittal T1-weighted images were acquired. These were followed by axial T2-weigh gerhard, diffusion weighted, gradient, and FLAIR images. Findings: No acute infarct, acute intracranial hemorrhage, or mass lesion. Small focus of hemosiderin present adjacent to the atrium of the left lateral ventricle and gradient images. No other parenchym al signal abnormality seen. Ventricles and subarachnoid spaces are unremarkable. Orbits are unremarkable. Paranasal sinuses and m astoid air cells are clear. Major intracranial flow voids appear intact. Sagittal midline structures are intact. IMPRESSION: No acute infarct, acute intracranial hemorrhage, or mass lesion. Small focus of hemosiderin adjacent to the atrium of the left lateral ventricle, which could reflect sequela of prior microhemorrhage, or possibly focal calcification. Reviewed, dictated and finalized at [facility]. IMPRESSION: No acute infarct, acute intracranial hemorrhage, or mass lesion. Small focus of hemosiderin adjacent to the atrium of the left lateral ventricle , which could reflect sequela of prior microhemorrhage, or possibly focal calci fication.
== END ==
PROVIDERS: PCP Student in an Organized Health Care Education/Training Program; Visit Provider Student in an Organized Health Care Education/Training Program
DX: R56.9 Unspecified convulsions (principal)
CPT/HCPCS: 70551

== ENCOUNTER 2022-08-29 16:05 | Emergency (ER) | payer OTHER, SELFPAY ==
[2022-08-29 16:10] VITALS: BP 134/74; PULSE 97; RESP 20; TEMP 36.8; O2SAT 100
--- NOTE | 2022-08-29 16:35 | ED.URI ---
HPI - URI/Sore Throat General Chief Complaint: Upper Respiratory Infection Stated Complaint: Sore Throat Source: patient and RN notes reviewed History of Present Illness HPI Narrative: 37-year-old male presents to urgent care with complaints of worsening congestion, runny nose, sore throat, and sinus pressure for the last 5 days. Patient also reports a cough. patient denies any fevers, chills vomiting, or chest pain. Patient denies any ear pain. Patient has been taking fvyv-nij-geiezmu cold medications without relief. Some parts of this dictation were generated by voice recognition software and may contain typographical and/or grammatical inaccuracies. Related Data Home Medications Medication Instructions Recorded Confirmed prenat.vits,hong,iou-krop-rpagd 1 tablet PO DAILY 11/05/21 11/12/21 dextroamphetamine-amphetamine 10 10 mg PO DAILY 05/09/22 06/23/22 mg tablet dextroamphetamine-amphetamine ER 20 mg PO DAILY 05/09/22 06/23/22 20 mg 24hr capsule,extend release (Adderall XR) venlafaxine 150 mg 150 mg PO DAILY 05/09/22 06/23/22 capsule,extended release 24 hr Allergies Allergy/AdvReac Type Severity Reaction Status Date / Time Penicillins Allergy Rash Verified 07/20/22 08:58 codeine AdvReac Mild Nausea Verified 07/20/22 08:58 Review of Systems Review of Systems: Pertinent positives and pertinent negatives per HPI. [facility] Past Medical History Medical History No pertinent past medical history Surgical History Surgical History No pertinent past surgical history Family History Family History Mother Family history non-contributory Social History Social History (System 07/20/22 @ 08:58 by Flynn Kong) Smoking status: Never smoker Alcohol intake: never Alcohol use details: RARE Substance use: never Substance use type: does not use Lack of Transportation: No Lack of Food: Never True Current Housing: I Have Housing Concerned About Future Housing: No Difficulty Paying Gas/Electric Bills: No Difficulty Paying for Meds: No Currently Unemployed: No Education: Trade/Vocational Certificate Difficulty w/ Childcare or Family Care: No Living arrangements: with family Gender identity (if verbalized by the patient): Female Sexual Orientation (if Verbalized by the Patient): Straight or Heterosexual Spiritual care concerns: No Comments At the time of my signature, I reviewed and agree with the nursing past medical, surgical, social, and family history. There is no relevant family history pertinent to the patient complaint. Exam Narrative: GENERAL: This is a well-nourished, well-developed patient, in no apparent distress. HEAD: normocephalic, atraumatic. EYES: Sclera clear/white. Vision is grossly intact. EARS: External ears normal, auditory canals clear and without drainage, TMs normal without perforation. Hearing grossly intact. Blue eustachian tubes noted bilaterally. NOSE: External nose normal with no obvious nasal discharge, nares without redness, no rhinorrhea. THROAT: Mucous membranes moist, posterior pharynx clear. NECK: Neck supple, non-tender without lymphadenopathy, masses or thyromegaly. CARDIOVASCULAR: Regular rate and rhythm without murmurs, gallops, or rubs. RESPIRATORY: Clear to auscultation. Breath sounds equal bilaterally. No wheezes, rales, or rhonchi. SKIN: warm, intact with no suspicious lesions or rash, good texture and turgor. NEURO: awake, alert, and oriented to person, place and time. There were no obvious focal neurologic abnormalities. Course Course Level of Care: Express Care Visit Vital Signs Vital signs: Vital Signs Temperature 98.2 F 08/29/22 16:10 Pulse Rate 97 08/29/22 16:10 Respiratory Rate 20 08/29/22 16:10 Blood Pressure 134/74 08/29/22 16:10 Pulse Oximetry 100
== END 2022-08-29 16:44 | disposition home or self-care (01) ==
PROVIDERS: Emergency Provider Nurse Practitioner Family
DX: J32.9 Chronic sinusitis, unspecified (principal); J02.9 Acute pharyngitis, unspecified
CPT/HCPCS: 87081; 87880; 99213; G0463

== ENCOUNTER 2023-07-10 15:59 | Emergency (ER) | payer OTHER, SELFPAY ==
[2023-07-10 16:10] VITALS: BP 111/72; PULSE 85; RESP 16; TEMP 37.2; O2SAT 100
--- NOTE | 2023-07-10 16:58 | ED.EYEPROB ---
HPI - Eye Problem General Chief complaint: Eye Problems Stated complaint: poss pink eye Time Seen by Provider: 07/10/23 16:50 Source: patient and RN notes reviewed Mode of arrival: ambulatory Limitations: no limitations History of Present Illness HPI Narrative: Patient presents today complaining of matting to the right eye when she woke up this morning with redness and some drainage. Symptoms have spread to the left eye throughout the day. Her and 2 children have had pinkeye the last week. She does not were contacts. Related Data Home Medications Medication Instructions Recorded Confirmed dextroamphetamine-amphetamine 10 10 mg PO DAILY 05/09/22 06/23/22 mg tablet dextroamphetamine-amphetamine ER 20 mg PO DAILY 05/09/22 06/23/22 20 mg 24hr capsule,extend release (Adderall XR) venlafaxine 150 mg 150 mg PO DAILY 05/09/22 06/23/22 capsule,extended release 24 hr Allergies Allergy/AdvReac Type Severity Reaction Status Date / Time Penicillins Allergy Rash Verified 07/20/22 08:58 codeine AdvReac Mild Nausea Verified 07/20/22 08:58 Review of Systems Review of Systems: CONSTITUTIONAL: Denies body aches, fever, chills, or sweats. EYES: Denies visual changes.+ bilateral eye redness, discharge ENT: Denies rhinorrhea, congestion, sore throat, or otalgia. CARDIOVASCULAR: Denies chest pain, palpitations, or edema. RESPIRATORY: Denies cough or dyspnea. GASTROINTESTINAL: Denies abdominal pain, nausea, vomiting, or diarrhea. GENITOURINARY: Denies dysuria or hematuria. SKIN: Denies rash, itching, or wounds. MUSCULOSKELETAL: Denies back pain, joint pain, or myalgia. NEUROLOGIC: Denies headache, numbness, tingling, or weakness. PSYCH: Denies depression or anxiety. [facility] Past Medical History Medical History Anxiety Gestational hypertension Headache No pertinent past medical history atony of uterus with hemorrhage Surgical History Surgical History No pertinent past surgical history Family History Family History Mother Family history non-contributory Father Lung cancer Sibling Breast cancer in male Grandparent Breast cancer in female Social History Social History Smoking status: Never smoker Alcohol intake: never Alcohol use details: RARE Substance use: never Substance use type: does not use Lack of Transportation: No Lack of Food: Never True Current Housing: I Have Housing Concerned About Future Housing: No Difficulty Paying Gas/Electric Bills: No Difficulty Paying for Meds: No Currently Unemployed: No Education: Trade/Vocational Certificate Difficulty w/ Childcare or Family Care: No Living arrangements: with family Gender identity (if verbalized by the patient): Female Sexual Orientation (if Verbalized by the Patient): Straight or Heterosexual Spiritual care concerns: No Comments At time of signature, I have reviewed and agree with nursing past medical, surgical, social and family history unless otherwise noted. Please see nursing chart for further information. There is no relevant family history pertinent to the presenting complaint Exam Narrative: GENERAL: Well-appearing, well-nourished, and in no acute distress. HEAD: Normocephalic, atraumatic. EYES: EOMI. PERRL. Bilateral injected conjunctiva with scant green discharge, right greater than left. Lids and lashes normal. ENT: Mucous membranes pink and moist. NECK: Normal AROM. CHEST: No respiratory distress. EXTREMITIES: Normal range of motion. No edema. SKIN: Warm, dry, no rash. Capillary refill normal. Normal skin turgor. NEURO: No focal deficits. Alert and oriented x3. Gait steady. PSYCH: Normal affect. No signs of depression or anx
== END 2023-07-10 17:09 | disposition home or self-care (01) ==
PROVIDERS: Emergency Provider Nurse Practitioner
DX: H10.33 Unspecified acute conjunctivitis, bilateral (principal); F41.9 Anxiety disorder, unspecified
CPT/HCPCS: 99213; G0463

== ENCOUNTER 2024-01-17 02:47 | Day surgery (SDC) | payer OTHER, SELFPAY ==
[2024-01-10 11:04] VITALS: BMI 20.7
--- NOTE | 2024-01-10 15:37 | PC.NURSE ---
Report to the Outpatient Waiting Room, entrance under the green pavilion located off [facility], at time __0830__ on date ___01/17/24___. Planned Procedure Time: ___1030___.? Time changes happen often and if your time is changed the preop area will call you the afternoon before. - You and your visitor will be asked to self-screen and do not enter if you have any COVID symptoms. Please call surgeon if you need to reschedule. - A mask is optional within the hospital at this time. Patients may have clear liquids (water, carbonated beverages, clear teas, apple juice) until 3 hours prior to surgery with a maximum of 20 ounces. - No food from midnight until time of surgery and no smoking - Infants may have breast milk until 4 hours before surgery, formula 6 hours prior to surgery. - Children will be allowed to drink immediately following surgery.? If applicable, please bring a bottle or sippy cup to assist with drinking. Juice, water, soda, and popsicles are readily available.? For infants on formula, please bring formula the day of surgery.? Pacifiers are allowed. Take only the following medications with a SIP of water on the morning of surgery: ____None DO NOT STOP ANY OF YOUR OTHER PRESCRIPTION MEDICATIONS PRIOR TO SURGERY EXCEPT THE FOLLOWING Medications to discontinue per physician N/A Date to take last dose____N/A Please no make-up, nail micronesian, hairspray, perfume, deodorant, or body powder the day of surgery.? No jewelry (including any body piercings) or valuables the day of surgery, leave them at home.? Please take a shower or bath the night before, or the morning of, surgery with an antibacterial soap.? Wear comfortable, loose fitting clothing.? Children are encouraged to wear pajamas. - Jewelry must be removed prior to entering the operating room.? Rings and piercings that are not removed may be cut off. - The hospital will not accept responsibility for valuables.? - Please leave all valuables, including medications, at home the day of surgery. If you are going home after surgery, a licensed motorcycle delivery driver must drive you home.? - NO public transportation without another adult if you receive anesthesia. - We recommend that an adult stay with you for 24 hours following discharge. - We also recommend that you do not drive, make important decision, drink alcoholic beverages, or take any drugs that were not prescribed by your health care provider for at least 24 hours after your discharge time. For Pediatric surgeries, we recommend two adults accompany the child home. Follow any additional instructions given to you from your surgeon. Telephone instructions given to __Guillermina Velez__and asked if any additional questions and then verbalized understanding. Patient advised to call surgeon office or pre surgery nurse liaison [phone] if any additional questions.
[2024-01-17] VITALS (7 sets, daily range): BP systolic 104–134; BP diastolic 71–87; PULSE 53–75; RESP 12–14; TEMP 36.1; O2SAT 100; BMI 26.9
--- NOTE | 2024-01-17 09:40 | PM.IMHP ---
H&P: [facility] History of Present Illness Date/Time: 01/17/24 09:40 Chief Complaint: Unwanted fertility Narrative: this patient is a 38-year-old female with unwanted fertility who presents for laparoscopic bilateral salpingectomy The patient understands the details of the procedure. The procedure has been explained in detail. She understands the risks. She understands that injuries may occur that result in hospitalization, more surgery, and severe illness. She understands risk of hemorrhage and infection. She denies any chest pain or shortness of breath. She denies any nausea, vomiting, fever, chills. Review of Systems Review of Systems: All systems reviewed & are unremarkable except as noted in HPI and below Constitutional: Constitutional: Denies chills, Denies fatigue, Denies fever(s) and Denies weakness Eyes: Eyes: Denies blurry vision, Denies change in vision, Denies loss of peripheral vision, Denies loss of vision, Denies other visual disturbances and Denies eye pain ENT: Denies vertigo, Denies dizziness, Denies hearing loss, Denies mouth pain, Denies nasal obstruction, Denies neck mass and Denies neck pain Cardiovascular: Cardiovascular: Denies chest pain, Denies diaphoresis, Denies syncope, Denies leg edema and Denies dyspnea Respiratory: Respiratory: Denies chest congestion, Denies cough, Denies hemoptysis, Denies dyspnea and Denies wheezing Gastrointestinal: Gastrointestinal: Denies abdominal pain, Denies constipation, Denies diarrhea, Denies nausea and Denies vomiting Genitourinary: Genitourinary: Denies hematuria, Denies change in libido, Denies nocturia, Denies genital lesions, Denies flank pain and Denies urinary urgency Musculoskeletal: Musculoskeletal: Denies abnormal gait, Denies back pain, Denies myalgias, Denies arthralgias, Denies joint swelling, Denies muscle weakness and Denies neck pain Integumentary/Breasts: Skin/Breast: Denies swelling, Denies breast pain, Denies breast mass, Denies dry skin, Denies nipple discharge, Denies unusual bruising and Denies jaundice Neurologic: Denies Neuro-related abnormal movements, Denies Abnormal speech present, Denies abnormal gait, Denies behavioral changes, Denies confusion, Denies vertigo, Denies dizziness, Denies syncope, Denies loss of vision, Denies memory loss, Denies convulsions and Denies weakness Psychiatric: Psychiatric: Denies abnormal sleep pattern, Denies behavioral changes, Denies change in libido, Denies confusion, Denies depression, Denies anhedonia and Denies memory loss Endocrine: Endocrine: Reports no additional endocrine complaints, Denies change in libido and Denies fatigue Hematologic/Lymphatic: Hematologic/Lymphatic: Reports no additional hematologic/lymphatic complaints Allergic/Immunologic: Allergic/Immunologic: Reports no additional allergic/immunologic complaints and Denies wheezing PMFSH Past Medical History Medical History Anxiety Gestational hypertension Headache No pertinent past medical history atony of uterus with hemorrhage Surgical History Surgical History No pertinent past surgical history Family History Family History Mother Family history non-contributory Father Lung cancer Sibling Breast cancer in male Grandparent Breast cancer in female Social History Social History Smoking status: Never smoker Alcohol intake: never Alcohol use details: RARE Substance use: never Substance use type: does not use Lack of Transportation: No Lack of Food: Never True Current Housing: I Have Housing Concerned About Future Housing: No Difficulty Paying Gas/Electric Bills: No Difficulty Paying for Meds: No Currently Unemployed: No Education: Trade/Vocational Certif
--- NOTE | 2024-01-17 09:46 | WPDHPUPDATE1 ---
History and Physical Update Update Date/Time: 01/17/24 09:46 History and Physical has been reviewed, including an updated exam of the patient. There are NO changes in the patient's condition. Risks, benefits, and alternatives have been discussed and questions answered. Patient agrees to proceed with procedure.
--- NOTE | 2024-01-17 09:47 | P.PNAN_ITS ---
Anes - Initial Pre Proc Eval Procedure: Operation Date: 01/17/24 10:30 Proposed Procedures p Laparoscopic Bilateral Salpingectomy, Hysteroscopy with Endometrial Ablation - Jon Rebolledo MD Date/Time: 01/17/24 09:47 Surgeon: Jon Rebolledo MD Pre Op Diagnosis: menorrhagia Patient Data Age: 38 Gender: F Height: 1.73 m Weight: 80.3 kg Allergies Allergy/AdvReac Type Severity Reaction Status Date / Time Penicillins Allergy Rash Verified 01/10/24 11:23 codeine AdvReac Mild Nausea Verified 01/10/24 11:23 Home Medications Medication Instructions Recorded Confirmed Type dextroamphetamine-amphetamine ER 20 mg PO DAILY 05/09/22 01/10/24 History 20 mg 24hr capsule,extend release (Adderall XR) venlafaxine 150 mg 150 mg PO DAILY 05/09/22 01/10/24 History capsule,extended release 24 hr eszopiclone 3 mg tablet 3 mg PO HS 01/10/24 01/10/24 History progesterone micronized 200 mg 200 mg PO DAILY 01/10/24 01/10/24 History capsule Patient hx anesthesia problems: none Family hx anesthesia problems: none Results Review: All pre-operative results and documents have been reviewed as part of the pre- operative evaluation. [facility] Past Medical History Medical History Anxiety Gestational hypertension Headache No pertinent past medical history atony of uterus with hemorrhage Surgical History Surgical History No pertinent past surgical history Family History Family History Mother Family history non-contributory Father Lung cancer Sibling Breast cancer in male Grandparent Breast cancer in female Social History Social History Smoking status: Never smoker Alcohol intake: never Alcohol use details: RARE Substance use: never Substance use type: does not use Lack of Transportation: No Lack of Food: Never True Current Housing: I Have Housing Concerned About Future Housing: No Difficulty Paying Gas/Electric Bills: No Difficulty Paying for Meds: No Currently Unemployed: No Education: Trade/Vocational Certificate Difficulty w/ Childcare or Family Care: No Living arrangements: with family Gender identity (if verbalized by the patient): Female Sexual Orientation (if Verbalized by the Patient): Straight or Heterosexual Spiritual care concerns: No Anes - Eval Final PreProcedure Day of Procedure 01/17/24 09:47 Patient weight: normal Heart: regular rate and rhythm Lungs: clear to auscultation Airway: Mallampati scale class II Neurological: alert and oriented Last oral intake: >/= 8 hours ASA classification: III Emergent: no Anesthetic plan: proceed Anesthesia type and monitoring: general GIVS and standard monitoring Results Review: All pre-operative results and documents have been reviewed as part of the pre- operative evaluation. Informed Consent: The patient's anesthetic plan and its attendant risks and benefits were discussed with the patient/family/POA. Questions were solicited and answers provided to the satisfaction of the patient/family/POA.
[2024-01-17] MEDS: KETOROLAC 15 MG/ML VIAL (*BKC) IV PUSH (09:57)
[2024-01-17] MEDS: LACTATED RINGERS 1,000 ML 30 ML IV CONT ×2 (09:57→11:55)
[2024-01-17] MEDS: ACETAMINOPHEN 500 MG TABLET 1000 MG PO (09:57)
--- NOTE | 2024-01-17 10:42 | P.OP_ITS ---
Procedure Note - Detailed Date of Procedure 01/17/24 Pre-op Diagnosis menorrhagia Post-op Diagnosis Same Procedure Performed Laparoscopic bilateral salpingectomy with endometrial ablation and hysteroscopy. Surgeon Jon Rebolledo MD Anesthesia General Indications Menorrhagia, female sterilization Findings Normal-appearing uterus, tubes, ovaries. Normal-appearing vulva, vagina, cervix, and endometrium. Description of Procedure Patient was taken the operating room. She has prepped draped in the dorsal lithotomy position after induction of general anesthesia. A 5 mm abdominal incision was made in left upper quadrant of the abdomen with scalpel. A 5 mm trocars inserted the intra-abdominal cavity under direct visualization of the scope. Pneumoperitoneum was achieved. A 5 mm periumbilical incision was made using a scalpel on the abdominal scan. A 5 mm trocar was inserted the intra- abdominal cavity under visualization of the scope. A 5 mm incision made left lower quadrant of the abdomen. A 5 mm trocar was inserted the intra-abdominal cavity and direct visualization of the scope. The bilateral fallopian tubes were removed. The paratubal tissue in the area of the uterus was grasped with the LigaSure cautery and transected after being cauterized. The paratubal tissue from the ovary to the uterine cornu was cauterized and transected with LigaSure cautery. This was all done in a bilateral fashion. The tube was transected at the area of the uterine cornua and the tubes was removed through the 5 mm trocar site. The pneumoperitoneum was reduced. The trocars were removed. The skin was closed with subcuticular 4 Monocryl and covered with Dermabond. Our attention was then turned to the endometrial ablation portion of the procedure. A speculum was placed in the vagina. The cervix was grasped with a tenaculum. The cervix was dilated to approximately 8 mm with Mora dilators. The hysteroscope was inserted. And the below findings were noted. All of the intrauterine surfaces were curettaged with a medium-size curette and the specimens were collected. Measurements of the cervix were taken using the uterine sound and the hysteroscope. The intrauterine cavity measurements were entered into the handpiece. The device was inserted into the intrauterine cavity and the array was expanded. The balloon cuff was inflated. When an adequate seal was formed the safety and energy cycles were initiated and completed. The array was collapsed, the balloon was deflated. The insert was withdrawn. The hysteroscope was reinserted and a well desiccated intrauterine cavity was observed. The patient was taken recovery room stable condition. Sponge lap and needle counts were correct x2. She tolerated the procedure well. Pathology Yes Complications No immediate complications Condition Stable Disposition PACU
[2024-01-17] MEDS: ONDANSETRON INJ 4 MG/2 ML VIAL IV PUSH (11:23)
[2024-01-17] MEDS: SCOPOLAMINE 1 MG PATCH 1 PATCH TRANSDERM (12:02)
== END 2024-01-17 12:40 | disposition home or self-care (01) ==
PROVIDERS: Visit Provider Obstetrics & Gynecology
PROC: 0UDB8ZZ Extraction of Endometrium, Via Natural or Artificial Opening Endoscopic (ICD-10-PCS; CPT 58558; principal; 2024-01-17 10:30)
DX: N92.0 Excessive and frequent menstruation with regular cycle (principal); Z30.2 Encounter for sterilization; F41.9 Anxiety disorder, unspecified
CPT/HCPCS: 58563; 58661; 88302; 88305; A9270; J1100; J1885; J2250; J2405; J2704; J3010; J7120

== ENCOUNTER 2024-11-27 15:29 | Emergency (ER) | payer OTHER, SELFPAY ==
--- OUTSIDE RECORDS SUMMARY | 2024-11-27 15:32 | XMS_ITS | Clinical Summary ---
Author Organization [facility] Address [address] [place] [address] Care Team Providers Care Breakfast And Room Attendant Name Role Phone Benjamin Buchanan MD Primary Care Provider [phone] Allergies Active Allergy Reactions Criticality Noted Date Comments Codeine Nausea and Vomiting Low 01/07/2016 Penicillins Nausea and Vomiting Low 01/07/2016 Medications OTHERIndications : control 1 Tablet daily Provider please include Medication name, dose, route and frequency . Active PSEUDOEPHEDRINE HCL (SUDAFED ORAL) Take by mouth. Activ e loratadine (CLARITIN) 10 mg tablet Take 10 mg by mouth daily. Active predniSONE (DELTASONE) 20 mg tabletIndication s:RTI (respiratory tract infection) 2 X 4 DAYS, 1 X 4 DAYS. 12 Tablet 1 6 Active omeprazole (PriLOSEC) 20 mg Capsule, Delayed Release(E.C.)Ind ications:Recurre nt upper respiratory tract infection Take 1 Capsule (20 mg) by mouth daily. 30 Capsule 2 6 Active Active Problems Problem Noted Date Diagnosed Date Tobacco use 01/07/2016 RTI (respiratory tract infection) 01/07/2016 Recurrent upper respiratory tract infection 05/2015 Does not have health insurance 01/07/2016 Family History Medical History Relation Name Comments Lung Cancer Father Relation Name Status Comments Brother Alive Father Alive Maternal Grandfather Maternal Grandmother Mother Alive Paternal Grandfather Paternal Grandmother Alive Social History Tobacco Use Types Packs/Day Years Used Date Smoking Tobacco: Some Days Cigarettes Alcohol Use Standard Drinks/Week Comments Yes 2 (1 standard drink = 0.6 oz pur e alcohol) social smoker Comments Unknown Sex and Gender Information Value Date Recorded Sex Assigned at Not on file Legal Sex Female 2:01 PM CDT Gender Identity Not on file Sexual Orientation Not on file Last Filed Vital Signs Vital Sign Reading Time Taken Comments Blood Pressure 120/74 01/07/2016 2:35 PM CDT Pulse - - Temperature - - Respiratory Rate - - Oxygen Saturation - - Inhaled Oxygen Concentration - - Weight 64.4 kg (142 lb) 01/07/2016 2:35 PM CDT Height 168.9 cm (5' 6.5) 01/07/2016 2:35 PM CDT Body Mass Index 22.58 01/07/2016 2:35 PM CDT Plan of Treatment Health Maintenance Due Date Last Done Comments HPV VACCINES (1 - 3-dose series) 01/24/2000 DTAP/TDAP/TD VACCINES (1 - Tdap) 01/24/2004 HEPATITIS B VACCINES (1 of 3 - 19+ 3-dose series) 01/06 HPV/Cotest (21-29) 2006 CERVICAL CANCER SCREENING 2015 HPV/Cotest (30-65) 2015 PAP SMEAR 2015 INFLUENZA VACCINE (#1) 2024 04/25/2016 Care Teams Breakfast And Room Attendant Relationship Specialty Start Date End Date Benjamin Buchanan MD PCP - General Internal Medicine 01/05/16
--- OUTSIDE RECORDS SUMMARY | 2024-11-27 15:32 | XMS_ITS | Clinical Summary ---
Author Organization [address] lto Address [address] [place] [address] Care Team Providers Care Rn Angiography Name Role Phone Radha Rutherford MD Primary Care Provider Radha Rutherford MD Unavailable [phone] Allergies Active Allergy Reactions Criticality Noted Date Comments Codeine Nausea only,Vomiting,Unknown Low 06/30/2023 Reaction: Nausea, Vomiting, Penicillins Other (See comments),Vomiting Low 06/30/2023 Reaction: Unknown, Medications fluticasone (FLONASE) 50 mcg/actuation nasal spray spray 2 spray by intranasal route every day in each nostril 1 spray 4 6 Active Additional Information Patient not taking.Reported on 07/04/2021 cetirizine (ZyrTEC) 10 mg tablet take 1 tablet by oral route every day 30 3 6 Active methylPREDNISol one (MEDROL, JOSE R,) 4 mg DosepackIndicat ions:Periorbita l swelling follow package directions 21 tablet 9 Active Additional Information Patient not taking.Reported on 06/28/2021 atomoxetine (STRATTERA) 60 mg capsule TK 1 C PO QAM 0 9 Active 25/iron fum/folic/dha (-1 ORAL) Active butalbital-acet aminophen-caffe ine (FIORICET) 50-300-40 mg per capsule TK ONE C PO Q 6 TO 8 H PRN 0 Active dextroamphetami ne-amphetamine XR (ADDERALL XR) 20 mg 24 hr capsule Take 1 capsule (20 mg total) by mouth every morning Active progesterone (PROMETRIUM) 200 mg capsule progesterone micronized 200 mg capsule Active eszopiclone (LUNESTA) 3 mg tablet Take 1 tablet (3 mg total) by mouth nightly 4 Active venlafaxine XR (EFFEXOR-XR) 150 mg 24 hr capsule Take 1 capsule (150 mg total) by mouth every morning 4 Active Active Problems Problem Noted Date Diagnosed Date Nasopharyngitis 06/28/2021 Assessment & Plan (06/28/2021 8:32 AM HEALTH SCIENCE SPECIALIST): Rapid strep swab: NEGATIVE This looks viral in nature and should run its course without antibiotics in 7-10 days. To read med list from CATEGORY ANALYST for otc to treat symptoms. You will need to take over the counter medications: Advise to use antihistamine and nasal saline to help with congestions and mucus. Drink plenty of fluids. May take Tylenol for pain. Discussed good hand hygiene. Contact the office if not better in a few days or if getting worse. If symptoms worsen or you experience shortness of breath, return to clinic or go to ER Anxiety 05/31/2017 Chronic tonsillitis 11/23/2016 Assessment & Plan (11/23/2016 9:29 AM CDT): Patient has done well status post tonsillectomy. There is no further dietary or physical restrictions. Patient can follow back up as needed. Tobacco use 01/07/2016 Immunizations Immunization Administration Dates Next Due Influenza, Quadrivalent, Split, Intramuscular Pfizer SARS-CoV-2 Monovalent Vaccination (12+ Yrs) PURPLE 07/28/2020,07/08/2020 Surgical History Surgery Date Site/Laterality Comments TONSILLECTOMY 10/11/2016 Bilateral Medical History Medical History Date Comments Hx Other Medical tubes in ears; Comments: KANolvia 01/05/2016 - Anxiety Family History Medical History Relation Name Comments Other Brother 2 Alive and well; Lung cancer Father Cancer, lung; Breast cancer Maternal Grandmother Cancer , breast; Cause of : Cancer, breast Other Mother Alive and well; Lung cancer Other Family history of Cancer, lung; Relation Name Status Comments Brother 1 Alive Brother 2 Father Maternal Grandmother Mother Alive Other Social History Tobacco Use Types Packs/Day Years Used Date Smoking Tobacco: Never Smokeless Tobacco: Never Tobacco Cessation:Counseling Given: No Alcohol Use Standard Drinks/Week Comments Yes 0 (1 standard drink = 0.6 oz pur e alcohol) Comments Unknown Sex and Gender Information Value Date Recorded Sex Assigned at Not on file Legal Sex Female 4:13 AM HEALTH SCIENCE SPECIALIST Gender Identity Not on file Sexual Orientation Not on file Obstetrics History Para Term AB IAB SAB Ectopic Multiple Livin g Live Births 1 Date Outcome GA Total Labor Labor/2nd/3rd Weight Sex Type Anes PTL Amy A1 A5 Name Clin Last Filed Vital Signs Vital Sign Reading Time Taken Comments Blood Pressure 102/66 07/04/2021 10:01 AM HEALTH SCIENCE SPECIALIST Pulse 87 07/04/2021 10:01 AM HEALTH SCIENCE SPECIALIST Temperature 36.8 C (98.3 F) 07/04/2021 10:01 AM HEALTH SCIENCE SPECIALIST Respiratory Rate 14 07/04/2021 10:01 AM HEALTH SCIENCE SPECIALIST Oxygen Saturation 100% 07/04/2021 10:01 AM HEALTH SCIENCE SPECIALIST Inhaled Oxygen Concentration - - Weight 67.7 kg (149 lb 3.2 oz) 07/04/2021 10:01 AM HEALTH SCIENCE SPECIALIST Height 170.2 cm (5' 7) 07/04/2021 10:01 AM HEALTH SCIENCE SPECIALIST Body Mass Index 23.37 07/04/2021 10:01 AM HEALTH SCIENCE SPECIALIST Plan of Treatment Health Maintenance Due Date Last Done Comments Cervical Cancer Screening 1985 Hepatitis C Screening 1985 DTaP/Tdap/Td Vaccine (1 - Tdap) 01/24/1996 Varicella Vaccines (1 of 2 - 13+ 2-dose series) 1998 Hepatitis B Screening 2003 Regular Well Visit/Exam 18-64 2003 Depression Screening 05/31/2018 05/31/2017, 02/27/2017 Covid-19 Vaccine (2023-2 5 season) 2024 07/28/2020, 07/08/2020 Influenza Vaccine (Season Ended) 2025 04/25/2016 HPV Vaccines Aged Out No longer eligi ble based on patient's age to complete this topic Pneumococcal vaccine <65 Aged Out No longer eligible based on patient's age to complete this topic Insurance [facility] PREFERRED Care Teams Rn Angiography Relationship Specialty Start Date End Date Radha Rutherford MD [id number] [place] [id number] PCP - General Internal Medicine 10/15/16 Radha Rutherford MD [id number] [place] [id number] 10/15/16
--- OUTSIDE RECORDS SUMMARY | 2024-11-27 15:32 | XMS_ITS | Data Portability ---
Author Organization [facility] Address [address] [place] [address] Care Team Providers Care Nut Culler Name Role Phone CRISS CANTU Primary Care Provider [phone] Assessment Encounter Date Assessment Date Assessment LastModified by Organization Details LastModified Time 12/08/2023 12/08/2023 Annual gynecological exam performed. Patient will come back in a year unless there are new symptoms. The patient and I disscussed the various causes of abnormal uterine bleeding, including polyps, fibroids, hyperplasia, atypia, anovulation, etc. We reviewed the typical evaluation with labs, pelvic US and possible endometrial biopsy. Briefly discussed the options available for treatment (depending on the results of evaluation) such as hormonal treatment (OCPs, progestins), Mirena, endometrial ablation, and surgery. We spent more than 30 minutes face to face. [email or web address] Not available 12/08/2023 12:14:48 Plan of Treatment Reminders Order Date Submit Date Provider Last Modified By Organization Details Last Modified Time Details Appointments None recorded. Lab CBC w/ auto diff [address] (Lab), [address] [place], [address], 22:51:05 CMP, serum or plasma [address] (Lab), [address] [place], [address], 4 22:51:05 lipid panel, blood [address] (Lab), [address], [place], [address], 4 22:51:05 TSH, serum or plasma [address] (Lab), [address] , [place], [address], 4 22:51:05 25-hydroxyv itamin D2 + 25-hydroxyv itamin D3, QN, serum or plasma [address] (Lab), [address], [place], [address], 4 22:51:06 unlisted lab - 17-oh progesteron e, lc/MS/MS [address] (Lab), [address], [place], [address], 4 22:51:05 dhea-sulfat e, serum [address] (Lab), [address] , [place], [address], 4 22:51:05 hormone panel, serum or plasma [address] (Lab), [address], [place], [address], 4 22:51:05 HbA1c (hemoglobin A1c), blood [address] (Lab), [address] [place], [address], 4 22:51:05 progesteron e, serum [address] (Lab), [address] [facility] [place], [address], 4 22:51:05 prolactin, serum [address] (Lab), [address] [facility], [place], [address], 4 22:51:05 shbg (sex hormone-bin ding globulin), serum [address] (Lab), [address] [facility], [place], [address], 4 22:51:05 testosteron e free/testos terone total, ratio, serum [address] (Lab), [address] [facility], [place], [address], 4 22:51:05 TSH, serum or plasma [address] (Lab), [address] [facility], [place], [address], 4 22:51:05 Referral None recorded. Procedures None recorded. Surgeries salpingecto my (SURG) [address], [address], [address], 4 09:21:32 hysteroscop y, with endometrial ablation (SURG) 2023 [facility], [address], [place], [address], 4 12:39:17 Imaging US, pelvis, complete 2023 [facility], [address], [address], [place], [address], 4 13:32:51 US, transvagina l 2023 024 [email or web address] [address], [address], [place], [address], 4 23:19:54 Medication Orders progesteron e micronized 200 mg capsule 2023 024 [id number], [address], [place], [place], [id number], 4 12:36:16 Patient TargetsNo targets recorded. Patient InstructionsNo instructions recorded. Reason for Referral None Reported. Results Created Date Observation Date Name Description Value Unit Range Abnormal Flag Note LastModifiedBy Organization Detail LastModifiedTime 11/13/1911/12/2021 CULTU RE: GROUP B STREP SCREE N, REFLE X SUSCE PTIBI LITY result report SEE RESULT S BELOW Test: Cultu re: Group B Strep , Refle x Susce ptibi lity ([facility]/ [facility] ) Speci men Sourc e: Vagin a/Rec junior Speci men Type: Vagin al/Re ctal Speci men Date: 3:08 PM Resul t Date: 2021 1:19 PM Resul t Statu s: Final resul t Abnor mal: No Resul ting Lab: [facility] [address] [facility] [address] Tel: CULTU RE ----- ----- ----- --- No Group B strep isola gerhard at 2 days (melinda ctive broth enhan cemen t) Not Available Cloudy Days Lab - Stat Weekend Draws [address] [facility], [place], [address], 11/15/2021 14:22:20 11/13/19 22 11/12/2021 US, obste tric, follo w-up No observ ation record ed. [email or web address] [address], [place], [address], 11/12/2021 13:30:45 11/13/19 22 11/12/2021 US, obste tric, follo w-up No observ ation record ed. [email or web address] [address], [place], [address], 11/12/2021 19:50:58 12/08/19 24 12/08/2023 US, trans vagin al No observ ation record ed. [facility] [address], [place], [address], 12/08/2023 13:43:32 12/08/19 24 12/08/2023 US, pelvi s, compl ete No observ ation record ed. [email or web address] [address], [place], [address], 12/08/2023 23:06:28 Result Notes None recorded. Problems Name Problem SNOMED Code Status Onset Date Resolution Date Notes Provider Name and Address Organization Details Recorded Time Low lying placenta 571529370 Completed 11/18/2019 resolved Yumiko Hough null, [facility] 0 13:13:14 Postpart um hemorrha ge 37134415 Completed Ashley Aldana [facility], [facility] 2 12:17:31 Pregnanc y-induce d hyperten rudy 15485056 Completed h/o Ashley Aldana [facility], [facility] [address] 12:17:[address] Concept Completed 201809/02/2020 Encntr for general adult medical exam w/o abnormal findings ;Recorde d Elsewher e: No Locat ion: James frankel [facility] S ource: EHR Temp Recruiter denisse: N Practi ce ID: 0001 Maxx lable Time: 11:00:00 AM Ana M Dean [facility], [facility] 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 13:19:12 Reproduc tive care manageme nt Completed 201809/02/2020 Encounte r for procreat tracy manageme nt;Recor ded Elsewher e: No Locat ion: [facility] S ource: EHR Temp Recruiter denisse: N Mounati ce ID: 0001 Maxx lable Time: 11:00:00 AM Ana M yang, [facility] 13:19:01 Removal of intraute rine device Completed 201809/02/2020 Encounte r for removal of intraute rine contrace ptive device;R ecorded Elsewher e: No Locat ion: [facility] S ource: EHR Temp Recruiter denisse: N Mounati ce ID: 0001 Maxx lable Time: 11:00:00 AM Ana M yang, [facility] 13:18:58 Miscarri age 00458956 Completed 201809/02/2020 Complete or unsp spontane ous without complica tion;Pra ctice ID: 0001 Ana M yang, [facility] 13:18:53 Pregnanc y test negative 400042164 Completed 201809/02/2020 Encounte r for pregnanc y test, result negative ;Practic e ID: 0001 Ana M yang, [facility] 13:18:56 Gestatio n less than 9 weeks 104351260 Completed 201909/02/2020 Less than 8 weeks gestatio n of pregnanc y;Record ed Elsewher e: No [facility] Temp Recruiter denisse: N Mounati ce ID: 0001 Maxx lable Time: 02:30:00 PM Ana M yang, [facility] 13:18:48 Clinical finding Completed 201909/02/2020 Preg care for patient w recurren t preg loss, first trimeste r;Practi ce ID: 0001 Ana M yang, [facility] 13:18:46 Gestatio n period, 9 weeks 148021 Completed 201909/02/2020 9 weeks gestatio n of pregnanc y;Record ed Elsewher e: No Locat ion: [facility] S ource: EHR Temp Recruiter denisse: N Practi ce ID: 0001 Maxx lable Time: 03:30:00 PM Ana M yang, [facility] 13:18:50 Situatio n with explicit context Completed 201909/02/2020 Suprvsn of preg w poor reprodct v or obstet hx, first tri;Naveen rded Elsewher e: No Locat ion: [facility] S ource: EHR Temp Recruiter denisse: N Practi ce ID: 0001 Maxx lable Time: 03:30:00 PM Ana M yang, [facility] 13:19:08 Secondar y amenorrh ea 968050246 Completed 201909/02/2020 Secondar y amenorrh ea;Pract ice ID: 0001 Ana M yang, [facility] 13:19:05 Pregnanc y detectio n examinat ion Completed 201909/02/2020 Encounte r for pregnanc y test, result positive ;Practic e ID: 0001 Ana M yang, [facility] 13:18:55 Rubella screenin g status 236997346 Completed 201909/02/2020 Encounte r for antenata l screenin g, unspecif ied;Naveen rded Elsewher e: No Locat ion: [facility] S ource: EHR Temp Recruiter denisse: N Practi ce ID: 0001 Maxx lable Time: 11:45:00 AM Ana M Dean celia, [facility] 1 13:19:03 Antenata l screenin g Completed 201909/02/2020 Encounte r for antenata l screenin g for nuchal transluc ency;Rec orded Elsewher e: No Locat ion: James frankel [facility] S ource: EHR Temp Recruiter denisse: N Mounati ce ID: 0001 Maxx lable Time: 11:15:00 AM Ana Mahmet yang, [facility] 1 13:18:44 Pregnanc y 28733455 Completed 201902/27/2020 Ashley fuentes null, [facility] 2 12:17:35 Pregnanc y 72463894 Completed 202112/17/2021 Ashley Aldana hl null, [facility] 2 12:17:35 Problem Notes None recorded. Procedures Surgical History Date Name Laterality Status Provider Name and Address Organization Details Recorded Time 01/17/20 24 HYSTEROSCOPY, WITH ENDOMETRIAL ABLATION (SURG) completed Adamaris Chaparro [facility] 01/17/2024 12:42:38 11/17/19 22 SECTION (SURG) completed Erika Acevedo [facility] 11/17/2021 11:26:48 09/03/19 21 Date of Last Pap Smear completed Ana M Dean [facility] 09/03/2020 11:51:56 05/08/19 17 arm destructive procedure completed Ana Mahmet Dean [facility] 09/02/2020 13:21:56 Imaging Results None recorded. Procedure Notes None recorded. Medical Equipment None Reported. Allergies Allergen ID Allergen Name Allergen Category Reaction Reaction Severity Criticality Documentation Date Start Date Code Code System Note Provider Name and Address Organization Details Recorded Time Product containin g penicilli n (product) medicatio n Not available Not available Not available 05/19/2021 76169 8001 SNOMED Tequila Troy [facility] 2 16:37:57 369 codeine medicatio n Not available Not available Not available 09/03/2019 2670 RxNorm Ana M Dean [facility] 0 10:30:22 Medications Name Sig Start Date Stop Date Status Note LastModified by Organization Details LastModified Time but/apap/ caf tab 10/20 completed Not Available Not Available Not Available venlafaxi ne ER 75 mg capsule,e xtended release 24 hr TAKE 3 CAPSULES BY MOUTH EVERY MORNING 03/12 completed Not Available Not Available Not Available trazodone 50 mg tablet TAKE 1/2 TO 1 TABLET BY MOUTH EVERY NIGHT AT BEDTIME 03/12 completed Not Available Not Available Not Available azithromy bindu 250 mg tablet TK 2 TS PO ON DAY 1, THEN TK 1 T PO D FOR 4 DAYS 09/15 completed Not Available Not Available Not Available ofloxacin 0.3 % eye drops INSTILL 2 DROPS IN RIGHT EYE FOUR TIMES DAILY FOR 5 DAYS 12/07 completed Not Available Not Available Not Available fluconazo le 150 mg tablet Take 1 tablet every day by oral route for 2 days. 09/02 completed Not Available Not Available Not Available hydrocodo ne 5 mg-acetam inophen 325 mg tablet TAKE 1 TABLET BY MOUTH EVERY 3 HOURS NEEDED FOR PAIN 12/07 completed Not Available Not Available Not Available ondansetr on HCl 4 mg tablet Take 1 tablet every 6-8 hours by oral route. 10/20 completed Not Available Not Available Not Available prednison e 20 mg tablet 03/12 completed Not Available Not Available Not Available dextroamp hetamine- amphetami ne 10 mg tablet TAKE 1 TABLET BY MOUTH EVERY DAY AT 1 PM active Not Available Not Available No t Available sertralin e 100 mg tablet TAKE 1 TABLET BY MOUTH EVERY MORNING 09/02 completed Not Available Not Available Not Available venlafaxi ne ER 150 mg capsule,e xtended release 24 hr TAKE 1 CAPSULE BY MOUTH EVERY MORNING 12/07 completed Not Available Not Available Not Available metronida zole 500 mg tablet TAKE 1 TABLET BY MOUTH TWICE DAILY active Not Available Not Available No t Available ciproflox acin 500 mg tablet TAKE 1 TABLET BY MOUTH EVERY 12 HOURS active Not Available Not Available No t Available doxycycli ne monohydra te 100 mg tablet TAKE 1 TABLET BY MOUTH TWICE DAILY active Not Available Not Available No t Available butalbita l-acetami nophen-ca ffeine 50 mg-325 mg-40 mg tablet 09/02 completed Not Available Not Available Not Available oxycodone -acetamin ophen 5 mg-325 mg tablet TAKE 1 TABLET BY MOUTH EVERY 4 HOURS NEEDED FOR PAIN active Not Available Not Available No t Available amitripty line 25 mg tablet TAKE 1 TABLET BY MOUTH EVERY NIGHT AT BEDTIME 09/02 completed Not Available Not Available Not Available dextroamp hetamine- amphetami ne ER 20 mg 24hr capsule,e xtend release TAKE 1 CAPSULE BY MOUTH ONCE DAILY IN THE MORNING active Not Available Not Available No t Available diphenhyd ramine 25 mg tablet Take 1 tablet every 4 hours by oral route. 12/07 completed Not Available Not Available Not Available misoprost ol 200 mcg tablet Insert all 4 pills per vagina all at once 03/12 completed Not Available Not Available Not Available polymyxin B sulfate 10,000 unit-trim ethoprim 1 mg/mL eye drops INSTILL 1 DROP IN EACH EYE FOUR TIMES DAILY FOR 7 DAYS 12/07 completed Not Available Not Available Not Available progester one micronize d 200 mg capsule TAKE 1 CAPSULE BY MOUTH EVERY DAY active Not Available Not Available No t Available dextroamp hetamine- amphetami ne ER 10 mg 24hr capsule,e xtend release TAKE 2 CAPSULES BY MOUTH EVERY MORNING 12/07 completed Not Available Not Available Not Available ibuprofen 600 mg tablet 09/02 completed Not Available Not Available Not Available sertralin e 20 mg/mL oral concentra te take 5 millilit er by oral route every day and mix with 4 oz. (1/2 cup) of water, monica edxter, lemon/li me soda, lemonade or orange juice ONLY 09/02 completed Prescrib ed Elsewher e: Yes Loca tion: [facility] M odify By: diony larson DateTime : 05/03/20 01:15:00 PM Not Available Not Available Not Available cefdinir 300 mg capsule TAKE 1 CAPSULE BY MOUTH TWICE DAILY FOR 10 DAYS 09/15 completed Not Available Not Available Not Available sertralin e 50 mg tablet TAKE 1 TABLET BY MOUTH EVERY MORNING 10/24 completed Not Available Not Available Not Available metoclopr amide 10 mg tablet TAKE 1 TABLET BY MOUTH EVERY 6 HOURS NEEDED FOR NAUSEA OR VOMITING 12/07 completed Not Available Not Available Not Available escitalop jairo 10 mg tablet active Not Available Not Available Not Available escitalop jairo 20 mg tablet active Not Available Not Available Not Available atomoxeti ne 10 mg capsule take 2 capsule by oral route 2 times every day 09/02 completed Prescrib ed Elsewher e: Yes [facility] od[facility] By: diony Isaacs ter DateTime : 05/03/20 01:15:00 PM Not Available Not Available Not Available atomoxeti ne 60 mg capsule 09/23 completed Not Available Not Available Not Available Ciprodex 0.3 %-0.1 % ear drops,ramu pension SHAKE LIQUID AND INSTILL 4 DROPS TO AFFECTED EAR EVERY 12 HOURS FOR 7 DAYS 09/15 completed Not Available Not Available Not Available eszopiclo ne 3 mg tablet TAKE 1 TABLET BY MOUTH EVERY NIGHT AT BEDTIME active Not Available Not Available No t Available 12/07 completed Not Available Not Available Not Available butalbita l-acetami nophen-ca ffeine 50 mg-300 mg-40 mg capsule TAKE ONE CAPSULE BY MOUTH EVERY 6 TO 8 HOURS 09/15 completed Not Available Not Available Not Available Lucina 14 mcg/24 hr (up to 3 years) 13.5 mg intrauter ine device 1 IUD every 3 years 01/17 completed Prescrib ed Elsewher e: Yes [facility]oca [facility] odify By: [email or web address] Encount er DateTime : 12/14/19 11:00:00 AM Not Available Not Available Not Available ID NOW COVID-19 Test Kit TEST DIRECTED 12/07 completed Not Available Not Available Not Available Vitals Date Recorded Body weight Provider Name an d Address Organization Details Last Updated DateTime 11/25/2021 11714.52210 g Ashley Jenny [facility] 12/17/2021 12:17:32 Date Recorded Body height Body mass index (BMI) Systolic And Diastolic Provider Name and Address Organization Details Last Updated DateTime 11/25/2021 170.18 cm 24.6 kg/m2 128/86 mm[Hg] Tequila Troy [facility] 11/25/2021 12:10:25 Date Recorded Body height Body mass index (BMI) Body weight Systolic And Diastolic Provider Name and Address Organization Details Last Updated DateTime 12/08/2023 170.18 cm 21.8 kg/m2 58399.34 g 120/79 mm[Hg] Donna [facility] 12/08/2023 12:15:19 Date Recorded Body height Body mass index (BMI) Body weight Systolic And Diastolic Provider Name and Address Organization Details Last Updated DateTime 02/02/2024 170.18 cm 22.1 kg/m2 96497.52 g 125/77 mm[Hg] Donna [facility] 02/02/2024 16:11:24 Social History Question Answer Notes LastModified by Organizat ion Details LastModified Time Tobacco Smoking Status [facility] 12/13/2021 12:11:03 Do You Have An Advance Directive? No Information not available 03/12/2021 If You Are , What Was Your Level Of Alcohol Consumption Prior To ? Occasional Information not available 12/13/2021 Are You Blind Or Do You Have Difficulty Seeing? No Information not available 03/12/2021 What Is Your Level Of Caffeine Consumption? Occasional Information not available 03/12/2021 In The 14 Days Before Symptom Onset, Have You Had Close Contact With A Laboratory-confir [facility] COVID-19 While That Case Was Ill? No Information not available 03/12/2021 In The 14 Days Before Symptom Onset, Have You Had Close Contact With A Person Who Is Under Investigation For COVID-19 While That Person Was Ill? No Information not available 03/12/2021 Have You Been To An Area Known To Be High Risk For COVID-19? No Information not available 03/12/2021 Are You Deaf Or Do You Have Serious Difficulty Hearing? No Information not available 03/12/2021 What Type Of Diet Are You Following? REGULAR Information not available 03/12/2021 What Is The Highest Grade Or Level Of School You Have Completed Or The Highest Degree You Have Received? [id number] Information not available 03/12/2021 Are There Any Guns Present In Your Home? No Information not available 03/12/2021 What Was The Date Of Your Most Recent Tobacco Screening? 09/15/2021 [email or web address] Information not available 12/13/2021 Do You Use Protection During Sex? No Information not available 03/12/2021 Do You Use Your Seat Belt Or Car Seat Routinely? Yes Information not available 03/12/2021 Do You Have Smoke And Carbon Monoxide Detectors In Your Home? Yes Information not available 03/12/2021 How Much Tobacco Do You Smoke? No Information not available 03/12/2021 Smoking Pre- Yes [email or web address] Information not available 12/13/2021 Do You Use Sunscreen Routinely? Yes Information not available 03/12/2021 Has Tobacco Cessation Counseling Been Provided? No Information not available 12/13/2021 Have You Used IV Drugs? No Information not available 03/12/2021 Do You Have Difficulty Walking Or Climbing Stairs? No [email or web address] Information not available 12/13/2021 Sex: Unknown Functional Status Question Answer Note LastModified by Organizat ion Details LastModified Time Do you use any illicit or recreational drugs? No Information not available 03/12/2021 Do you or have you ever used any other forms of tobacco or nicotine? No Information not available 12/13/2021 What is your level of alcohol consumption? None Information not available 03/12/2021 Do you or have you ever used smokeless tobacco? Never used smokeless tobacco [email or web address] Information not available 12/13/2021 Are you able to walk? [email or web address] Information not available 03/12/2021 Are you able to care for yourself? Yes Information not available 12/13/2021 What is your occupation? [employer] Information not available 03/12/2021 Do you have difficulty dressing or bathing? No [email or web address] Information not available 12/13/2021 Do you or have you ever used e-cigarettes or vape? Never used electronic cigarettes [email or web address] Information not available 12/13/2021 What is your exercise level? Occasional Information not available 03/12/2021 Mental Status Question Answer Note LastModified by Organization D etails LastModified Time Do you feel stressed (tense, restless, nervous, or anxious, or unable to sleep at night)? [id number] Information not available 03/12/2021 Family History Relationship Description Onset Age of this Age Resolved Age Notes LastModified by Organization Details LastModified Time Father Malignant tumor of esophagus [email or web address] Not available 2023 15:11:34 Father Malignant neoplasm of lung Not available 2020 15:17:42 Brother Malignant tumor of breast Not available 2020 15:17:42 Medical History Condition Response Allergies (Food, seasonal, environmental ) N Other N Breast Cancer N Drug/Latex Allergies/Reactions N Blood Transfusion N Dermatologic Disorders N Lung Disease N Defects or Inherited Disease N Breast Problem N Gestational Diabetes N Hematologic disorders N Anesthesia Complications N History of STI Y Deep Vein Thrombosis N Polycystic ovary syndrome N Anxiety Disorder Y Autoimmune disease N Arthritis N Infertility N Polyps N Acid Reflux (GERD) N History of abnormal pap Y Cancer N Stroke N Varicosities N Neurologic/Epilepsy Y Endometriosis N High Cholesterol N Headaches N Fibromyalgia N Kidney Disease N Heart Problems N Kidney or Bladder Problems N Thyroid Problems N GI Problems N Eating Disorder N Anemia N Art (IVF or FET) N Psychiatric Illness Y Ovarian Cancer N Diabetes N Pulmonary (TB, Asthma) N Hepatitis/Liver Disease N No Past Medical History N Eczema N Urinary Tract Infection N Abuse/Domestic Violence N Asthma N Trauma/Violence N Depression/ depression N Heart Disease N Pre-Eclampsia N Hypertension N Osteoporosis N Thrombophilias N Gynecological History Statement/Question Response Flow Heavy Date of Last Mammogram Date of LMP 11/16/2023 Was last menstrual period normal N STIs/STDs Y HPV Vaccine N Duration of Flow (days) 11 Current Control Method Ablation Are cycles usually normal Y Frequency of Cycle (Q days) 14 Most Recent Bone Density Sexually Active? Y Menses Monthly Y Date of Last Pap Smear 09/02/2020 Sexual Problems? N Desired Control Method None LMP Definite Obstetrics History GPAL:G 4 P 2 0 2 2 Type Value Full Term 2 Spontaneous 2 Living 2 Total 4 Past Encounters Encounter ID Performer Location Encounter Start Date Encounter Closed Date Diagnosis/Indication Diagnosis SNOMED-CT Code Diagnosis ICD10 Code Diagnosis Note [id number] Jon Rebolledo MD [place] [address],[place] [address] 09/03/2019 09:45:50 09/03/2019 12:49:35 Medical examination for suspected condition [id number] Z03.72 [id number] [facility] [address],[place] [address] 09/03/2019 09:47:19 09/03/2019 11:48:06 Routine care 287431799 Z34.92 [id number] Kamille Thomas CNM [place] [address],[place] [address] 09/24/2019 12:22:43 09/24/2019 13:14:53 Migraine 78102830 G43.909 tx with fioricet and refill given Mass of left breast 1224 270769 1301192 N63.20 US/mammogr am ordered [id number] Jon Rebolledo MD [place] [address],[place] [address] 10/01/2019 09:28:22 10/01/2019 11:33:14 screening for malformation 189600670 Z36.3 [id number] Kamille Thomas CNM [place] [address],[place] [address] 10/01/2019 09:28:54 10/01/2019 12:17:07 Routine care 535641113 Z34.92 [id number] Jon Rebolledo MD [place] [address],[place] [address] 10/21/2019 14:49:55 10/21/2019 17:38:04 Low lying placenta [id number] O44.42 Z3A.22 [id number] Jon Rebolledo MD [facility] [address],[place] [address] 10/21/2019 14:51:01 10/21/2019 17:29:28 Routine care [id number] Z34.02 [id number] Jon Rebolledo MD [facility] [address],[place] [address] 11/18/2019 09:42:24 11/18/2019 11:25:47 Routine care [id number] Z34.02 [id number] Jon Rebolledo MD [facility] [address],[place] [address] 11/18/2019 09:44:43 11/18/2019 14:05:33 Placenta previa without hemorrhage [id number] O44.02 Z3A.27 [id number] Griselda Marino [facility] [address],[place] [address] 12/04/2019 14:10:40 12/04/2019 17:52:00 [id number] [facility] [address],[place] [address] 12/20/2019 16:04:58 12/20/2019 16:48:08 Routine care [id number] Z34.92 [id number] [facility] [address],[place] [address] 01/03/2020 15:49:06 01/05/2020 13:07:28 Routine care [id number] Z34.92 [id number] Jon Rebolledo MD [facility] [address],[place] [address] 01/03/2020 16:28:36 01/03/2020 17:20:42 heart deceleration [id number] O76 [id number] MD Rick Menendez [address],[place] [address] 01/03/2020 16:52:24 01/03/2020 17:30:13 condition affecting obstetrical care of mother [id number] O36.8330 Z3A.34 [id number] MD Rick Menendez [address],[place] [address] 01/15/2020 17:20:16 01/15/2020 18:05:41 Routine care [id number] Z34.02 [id number] Jon Rebolledo MD [facility] [address],[place] [address] 01/16/2020 10:24:16 01/16/2020 15:59:41 condition affecting obstetrical care of mother [id number] O36.8330 [id number] MD Rick Menendez [address],[place] [address] 01/22/2020 15:00:45 01/22/2020 15:44:43 Large for gestation age fetus [id number] O35.8XX9 [id number] Jon Rebolledo MD [facility] [address],[place] [address] 01/22/2020 15:55:06 01/22/2020 16:58:52 Gravid uterus msvrz-xon-wzsjz [id number] O26.843 Z3A.37 [id number] Jon Rebolledo MD [facility] [address],[place] [address] 01/29/2020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 Last Menstrual Period Date Ultra Sound Weeks Gestation 0 Eighteen To Twenty Week Papa Update Ultra Sound Date Fundal Height At Umbil Quickening Date Ultra Sound Latest Weeks Gestation Final Papa Confirmed By Final Papa Confirmed Date Final Papa Date Ultra Sound Latest Days Gestation 0 0 Menstrual History Last Menstrual Date Menses Monthly On Bcp Conception Prior Menses Frequency Hcg Plus Date Menarche Onset Age Delivery Information Delivery Date Delivery Type Labor Anesthesia Weeks Gestation Incision Type Labor Labor Length Hrs Delivered By Post Complications Tubal Sterilization Discharge Date Comments 0 38 GHTN Discharge Information Feeding Method Contraceptive Method Maternal HG B and HCT Levels Ob Episode Information Episode Created Date Number of Fetuses Patient Bloodtype Patient rh Status Prepregnancy Weight lbs Domestic Partner Domestic Partner Phone Father Name Blankbook Stitching Machine Operator Status 03/29/20 21 1 DELETED Papa Calculation Initial Papa Date Initial Exam Date Initial Exam Provider Initial Ultrasound Date Last Menstrual Period Date Ultra Sound Weeks Gestation 0 Eighteen To Twenty Week Papa Update Ultra Sound Date Fundal Height At Umbil Quickening Date Ultra Sound Latest Weeks Gestation Final Papa Confirmed By Final Papa Confirmed Date Final Papa Date Ultra Sound Latest Days Gestation 0 0 Menstrual History Last Menstrual Date Menses Monthly On Bcp Conception Prior Menses Frequency Hcg Plus Date Menarche Onset Age Delivery Information Delivery Date Delivery Type Labor Anesthesia Weeks Gestation Incision Type Labor Labor Length Hrs Delivered By Post Complications Tubal Sterilization Discharge Date Comments 1 MAB Discharge Information Feeding Method Contraceptive Method Maternal HG B and HCT Levels Ob Episode Information Episode Created Date Number of Fetuses Patient Bloodtype Patient rh Status Prepregnancy Weight lbs Domestic Partner Domestic Partner Phone Father Name Blankbook Stitching Machine Operator Status 03/29/20 21 1 CLOSED Fetus Data First Name Last Name Admitted to NICU Weight (g) Sex Living Outcome Pediatric Complications Fetus ID Race Codes Race Delivery Type , [place] ous [id number] Papa Calculation Initial Papa Date Initial Exam Date Initial Exam Provider Initial Ultrasound Date Last Menstrual Period Date Ultra Sound Weeks Gestation 0 Eighteen To Twenty Week Papa Update Ultra Sound Date Fundal Height At Umbil Quickening Date Ultra Sound Latest Weeks Gestation Final Papa Confirmed By Final Papa Confirmed Date Final Papa Date Ultra Sound Latest Days Gestation 0 0 Menstrual History Last Menstrual Date Menses Monthly On Bcp Conception Prior Menses Frequency Hcg Plus Date Menarche Onset Age Delivery Information Delivery Date Delivery Type Labor Anesthesia Weeks Gestation Incision Type Labor Labor Length Hrs Delivered By Post Complications Tubal Sterilization Discharge Date Comments 1 Discharge Information Feeding Method Contraceptive Method Maternal HG B and HCT Levels Ob Episode Information Episode Created Date Number of Fetuses Patient Bloodtype Patient rh Status Prepregnancy Weight lbs Domestic Partner Domestic Partner Phone Father Name Blankbook Stitching Machine Operator Status 05/19/19 22 1 O Positive 143 CLOSED Fetus Data First Name Last Name Admitted to NICU Weight (g) Sex Living Outcome Pediatric Complications Fetus ID Race Codes Race Delivery Type 2778.25 1 F true Full Term [id number] Primary Problems Problem Notes 28WK Panel WNL Problem Name Start Date End Date Resolution Snomed Code Not e hemorrhage [id number] -induced hypertension [id number] h/o Papa Calculation Initial Papa Date Initial Exam Date Initial Exam Provider Initial Ultrasound Date Last Menstrual Period Date Ultra Sound Weeks Gestation 12/07/2021 05/19/2021 04/14/2021 03/02/2021 6 Eighteen To Twenty Week Papa Update Ultra Sound Date Fundal Height At Umbil Quickening Date Ultra Sound Latest Weeks Gestation Final Papa Confirmed By Final Papa Confirmed Date Final Papa Date Ultra Sound Latest Days Gestation 0 [email or web address] 05/19/2021 12/08/19 22 0 Pre- Flowsheet Flowsheet Date 05/19/2021 Knight Score Blood Edema Fundus Height Fundus Units Glucose Ketones Leukocytes Nitrite Labor Signs Protein Cervic Dilation Cervic Effacement Cervic Station 11 Type Weight in lbs Pre/Post Dialysis Refused Weight 140.989314886847 BP Diastolic BP Location Tested BP Systolic BP Type 86 R arm 119 sitting Fetus Heart Rate Present A 156 Fetus Movement Comments this patient is a 36-year-ol d 4 para 1021 at 11 weeks gestation presents for initial care. She has a history of hemorrhage. She had some -induced hypertension at term. She was induced and delivered and had hemorrhage. she has no complaints today. She is doing genetic testing. labs are today. I am uncertain about her vaccination status. She is taking progesterone and a baby aspirin. To discontinue progesterone at 18 weeks. To begin routine care. Flowsheet Date 05/19/2021 Knight Score Blood Edema Fundus Height Fundus Units Glucose Ketones Leukocytes Nitrite Labor Signs Protein Cervic Dilation Cervic Effacement Cervic Station Type Weight in lbs Pre/Post Dialysis Refused BP Diastolic BP Location Tested BP Systolic BP Type Fetus Heart Rate Present Fetus Movement Comments Flowsheet Date 06/21/2021 Knight Score Blood Edema Fundus Height Fundus Units Glucose Ketones Leukocytes Nitrite Labor Signs Protein Cervic Dilation Cervic Effacement Cervic Station Type Weight in lbs Pre/Post Dialysis Refused BP Diastolic BP Location Tested BP Systolic BP Type Fetus Heart Rate Present Fetus Movement Comments Flowsheet Date 06/21/2021 Knight Score Blood Edema Fundus Height Fundus Units Glucose Ketones Leukocytes Nitrite Labor Signs Protein Cervic Dilation Cervic Effacement Cervic Station 16 Type Weight in lbs Pre/Post Dialysis Refused Weight 147.371172371679 BP Diastolic BP Location Tested BP Systolic BP Type 85 R arm 125 sitting Fetus Heart Rate Present A 145 Fetus Movement Comments no complaints, no bleeding, no cramping Flowsheet Date 07/29/2021 Knight Score Blood Edema Fundus Height Fundus Units Glucose Ketones Leukocytes Nitrite Labor Signs Protein Cervic Dilation Cervic Effacement Cervic Station Type Weight in lbs Pre/Post Dialysis Refused BP Diastolic BP Location Tested BP Systolic BP Type Fetus Heart Rate Present Fetus Movement Comments Flowsheet Date 07/29/2021 Knight Score Blood Edema Fundus Height Fundus Units Glucose Ketones Leukocytes Nitrite Labor Signs Protein Cervic Dilation Cervic Effacement Cervic Station 24 Type Weight in lbs Pre/Post Dialysis Refused Weight 154.709679973888 BP Diastolic BP Location Tested BP Systolic BP Type 71 R arm 120 sitting Fetus Heart Rate Present A 134 Fetus Movement Comments no problems, had an ear infe ction that resolved, no contractions, good movement Flowsheet Date 09/02/2021 Knight Score Blood Edema Fundus Height Fundus Units Glucose Ketones Leukocytes Nitrite Labor Signs Protein Cervic Dilation Cervic Effacement Cervic Station Type Weight in lbs Pre/Post Dialysis Refused BP Diastolic BP Location Tested BP Systolic BP Type Fetus Heart Rate Present Fetus Movement Comments Flowsheet Date 09/02/2021 Knight Score Blood Edema Fundus Height Fundus Units Glucose Ketones Leukocytes Nitrite Labor Signs Protein Cervic Dilation Cervic Effacement Cervic Station 26 Type Weight in lbs Pre/Post Dialysis Refused Weight 160.940500047445 BP Diastolic BP Location Tested BP Systolic BP Type 82 L arm 120 sitting Fetus Heart Rate Present A 145 Fetus Movement Comments No complaints, Flowsheet Date 09/15/2021 Knight Score Blood Edema Fundus Height Fundus Units Glucose Ketones Leukocytes Nitrite Labor Signs Protein Cervic Dilation Cervic Effacement Cervic Station neg none 28 none trace Type Weight in lbs Pre/Post Dialysis Refused Weight 162.081947000075 BP Diastolic BP Location Tested BP Systolic BP Type 83 121 Fetus Heart Rate Present A 150 Fetus Movement A Yes Comments patient is having some cramp ing and bh contractions. gct today, doing well, f/u 2 weeks Flowsheet Date 10/01/2021 Knight Score Blood Edema Fundus Height Fundus Units Glucose Ketones Leukocytes Nitrite Labor Signs Protein Cervic Dilation Cervic Effacement Cervic Station 33 Type Weight in lbs Pre/Post Dialysis Refused Weight 168.912547486983 BP Diastolic BP Location Tested BP Systolic BP Type 74 R arm 127 sitting Fetus Heart Rate Present A 145 Fetus Movement A Yes Comments Size greater than dates, to check with ultrasound for growth and fluid. Flowsheet Date 10/13/2021 Knight Score Blood Edema Fundus Height Fundus Units Glucose Ketones Leukocytes Nitrite Labor Signs Protein Cervic Dilation Cervic Effacement Cervic Station Type Weight in lbs Pre/Post Dialysis Refused BP Diastolic BP Location Tested BP Systolic BP Type Fetus Heart Rate Present Fetus Movement Comments Flowsheet Date 10/13/2021 Knight Score Blood Edema Fundus Height Fundus Units Glucose Ketones Leukocytes Nitrite Labor Signs Protein Cervic Dilation Cervic Effacement Cervic Station Type Weight in lbs Pre/Post Dialysis Refused Weight 170.617603013224 BP Diastolic BP Location Tested BP Systolic BP Type 80 R arm 114 sitting Fetus Heart Rate Present A 145 Fetus Movement Comments No complaints, normal blood pressure Flowsheet Date 10/29/2021 Knight Score Blood Edema Fundus Height Fundus Units Glucose Ketones Leukocytes Nitrite Labor Signs Protein Cervic Dilation Cervic Effacement Cervic Station 34 Type Weight in lbs Pre/Post Dialysis Refused Weight 173.068872229224 BP Diastolic BP Location Tested BP Systolic BP Type 94 R arm 125 sitting Fetus Heart Rate Present A 145 Fetus Movement Comments Concerned about presenting p art, recent nausea vomiting and headache. Uncertain etiology. To treat headache. Might of been migraine. some photophobia and phonophobia. Flowsheet Date 11/12/2021 Knight Score Blood Edema Fundus Height Fundus Units Glucose Ketones Leukocytes Nitrite Labor Signs Protein Cervic Dilation Cervic Effacement Cervic Station Type Weight in lbs Pre/Post Dialysis Refused BP Diastolic BP Location Tested BP Systolic BP Type Fetus Heart Rate Present Fetus Movement Comments Flowsheet Date 11/12/2021 Knight Score Blood Edema Fundus Height Fundus Units Glucose Ketones Leukocytes Nitrite Labor Signs Protein Cervic Dilation Cervic Effacement Cervic Station 36 Type Weight in lbs Pre/Post Dialysis Refused Weight 174.99925212018 BP Diastolic BP Location Tested BP Systolic BP Type 99 R arm 148 sitting 64 L arm 144 sitting Fetus Heart Rate Present A 145 Fetus Movement Comments patient is at headache for s everal days. It sounds like a tension headache. Is muscular but frontal. Is not throbbing. Is not the worst headache she has ever had. Her baby is erin breech. Pressures are not severe range. Concerned about headache though. One to observe in Labor and delivery. Asked patient to go to Labor and delivery directly. Flowsheet Date 11/16/2021 Knight Score Blood Edema Fundus Height Fundus Units Glucose Ketones Leukocytes Nitrite Labor Signs Protein Cervic Dilation Cervic Effacement Cervic Station Type Weight in lbs Pre/Post Dialysis Refused BP Diastolic BP Location Tested BP Systolic BP Type Fetus Heart Rate Present Fetus Movement Comments Flowsheet Date 11/25/2021 Knight Score Blood Edema Fundus Height Fundus Units Glucose Ketones Leukocytes Nitrite Labor Signs Protein Cervic Dilation Cervic Effacement Cervic Station Type Weight in lbs Pre/Post Dialysis Refused Weight 157.579469952699 BP Diastolic BP Location Tested BP Systolic BP Type 86 R arm 128 sitting Fetus Heart Rate Present Fetus Movement Comments Menstrual History Last Menstrual Date Menses Monthly On Bcp Conception Prior Menses Frequency Hcg Plus Date Menarche Onset Age 1003/02/2021 Genetic Screening And Infection History Question Response Note Mental Retardation/Autism false Patient's Age Will Be 35 Years Or Older At Estim ated Date of Delivery false Thalassemia (Malian, Irish, Mediterranean, Or Background): MCV < 80 false Neural Tube Defect (Meningomyelocele, Spina Bifi da, Or Anencephaly) false Congenital Heart Defect false Down Syndrome false Cole-Sachs (eg, Mandaen, Cajun, Montserratian-Bahraini) f alse Kim Disease false Sickle Cell Disease Or Trait () false Hemophilia Or Other Blood Disorders false Muscular Dystrophy false Cystic Fibrosis false [place]'s Chorea false Intellectual Disability/Autism false If Yes, Was Person Tested For Fragile X? false Other Inherited Genetic Or Chromosomal Disorder false Maternal Metabolic Disorder (eg, Type 1 Diabetes , PKU) false Patient Or Baby's Father Had A Child With Defects Not Listed Above false Recurrent Loss, Or A Stillbirth false Medications (including Suppl ements, Vitamins, Herbs, OTC Drugs), Illicit/Recreational Drugs, Alcohol false If Yes, Agent(s) And Strength/Dosage false Any Other Genetic History false Live With Someone With TB Or Exposed To TB false Patient Or Partner Has History Of Genital Herpes false Rash Or Viral Illness Since Last Menstrual Perio d false History Of STD, Gonorrhea, Chlamydia, HPV, Syphi lis false Other Infection History false History of HIV false History of Hepatitis false Prior GBS-infected child false Hemoglobinopathy Or Carrier false Other Structural Defect false Recent Travel History Outside of Country false Delivery Information Delivery Date Delivery Type Labor Anesthesia Weeks Gestation Incision Type Labor Labor Length Hrs Delivered By Post Complications Tubal Sterilization Discharge Date Comments 2 None Regional-Sp inal 37 Low Transvers e false Jon Rebolledo MD Breech Discharge Information Feeding Method Contraceptive Method Maternal HG B and HCT Levels Bottle
--- OUTSIDE RECORDS SUMMARY | 2024-11-27 15:32 | XMS_ITS | Clinical Summary ---
Author Organization [facility] Address [address] [place] [address] Care Team Providers Care Thermite Bomb Loader Name Role Phone Unavailable Primary Care Provider Unavailabl e Source Comments [facility],non-owned Affiliates and Associated Physician Practices is amultiple site organization consisting of ambulatory clinics and hospital sitesin [place], [place], [place] and [place]. This disclosure is being madepursuant to the Care Everywhere program and may not contain all information available regarding this patient. Last updated [address] [facility] Allergies Active Allergy Reactions Criticality Noted Date Comments Codeine 07/26/2016 Medications * Be aware that medications may not be up to date on this document. Alwaysverify current medications with the patient. fluticasone propionate (FLONASE) 50 MCG/ACT nasal sprayIndication s:Rhinosinusiti s [place] 2 Sprays into each nostril once daily 1 Bottle 07/26/2016 Active Social History Tobacco Use Types Packs/Day Years Used Date Smoking Tobacco: Never Assessed Comments Unknown Sex and Gender Information Value Date Recorded Sex Assigned at Not on file Legal Sex Female 1:52 PM CDT Gender Identity Not on file Sexual Orientation Not on file Last Filed Vital Signs Vital Sign Reading Time Taken Comments Blood Pressure 106/62 07/26/2016 3:23 PM CDT Pulse 81 07/26/2016 3:23 PM CDT Temperature 37.1 C (98.8 F) 07/26/2016 3:23 PM CDT Respiratory Rate - - Oxygen Saturation - - Inhaled Oxygen Concentration - - Weight 61.2 kg (135 lb) 07/26/2016 3:23 PM CDT Height 170.2 cm (5' 7) 07/26/2016 3:23 PM CDT Body Mass Index 21.14 07/26/2016 3:23 PM CDT Plan of Treatment Health Maintenance Due Date Last Done Comments HIV SCREENING 01/24/2000 HEPATITIS C SCREENING 01/19/2003 DTAP/TDAP/TD VACCINES (1 - Tdap) 01/24/2004 HEPATITIS B VACCINE (1 of 3 - 19+ 3-dose series) 01/24/2004 PAP SMEAR 2006 HPV VACCINE (1 - 3-dose SCDM series) 01/24/2012 COVID-19 VACCINE (1 - 2023-2 5 season) 2024 DEPRESSION SCREENING 05/08/2024 INFLUENZA VACCINE (#1) 2025 ZOSTER VACCINE (1 of 2) 2035 HIB VACCINE Aged Out No longer eligi ble based on patient's age to complete this topic MENINGOCOCCAL (Group B) VACC INE SHARED DECISION-MAKING Aged Out No longer eligibl e based on patient's age to complete this topic MENINGOCOCCAL GROUPS A/C/Y/W VACCINE Aged Out No longer eligible b ased on patient's age to complete this topic PNEUMOCOCCAL VACCINE Aged Out No long er eligible based on patient's age to complete this topic Insurance [employer] [place] [id number] * Guarantor: GUILLERMINA BREWER Account Type Relation to Patient Date of Phone Billing Address Personal/Family [phone] CARE Member Subscriber Plan / Payer (Ef fective 2019-Present) Name:Guillermina Siegel Relation to Subscriber:Spouse Name:ABDULAZIZ FERRO Subscriber ID:Not on file Date of :1986 (Home) Address: [address] [place] [address] Payer ID:[id number] (NAIC) Type:O Address: [place] [id number] [place] [id number]
--- OUTSIDE RECORDS SUMMARY | 2024-11-27 15:32 | XMS_ITS | Clinical Summary ---
Author Organization [facility] Address [address] [place] [address] Phone Care Team Providers Care Big 6 Dealer Name Role Phone Radha Rutherford MD Primary Care Provider [phone] Allergies Active Allergy Reactions Criticality Noted Date Comments Codeine Nausea,Vomiting Low 07/26/2016 Reaction: Nausea, Vomiting, Penicillins Nausea Low 05/13/2020 Medications amphetamine-dex troamphetamine (ADDERALL) 10 MG Tablet Take 10 mg by mouth daily. 5 Active Vit-Fe Fumarate-FA ( VITAMIN PO) Take by mouth daily. Active methylPREDNISol one (Medrol) 4 MG Tablet Therapy PackIndications :Hand pain, right Use as per instructions on package. 21 Tablet 5 Active Active Problems No known active problems Immunizations Immunization Administration Dates Next Due Influenza, Injectable, Quadrivalent 04/25/2016 MMR Vaccine 11/19/2021 Social History Tobacco Use Types Packs/Day Years Used Date Smoking Tobacco: Never Smokeless Tobacco: Never Tobacco Cessation:Counseling Given: Not Answered Alcohol Use Standard Drinks/Week Comments Not Currently 0 (1 standard drink = 0.6 oz pur e alcohol) Sexually Active Control Partners Comments Yes Surgical Male Partial hystere ctomy Comments No Sex and Gender Information Value Date Recorded Sex Assigned at Not on file Legal Sex Female 8:40 AM OFFICE EMPLOYEE Gender Identity Not on file Sexual Orientation Not on file Last Filed Vital Signs Vital Sign Reading Time Taken Comments Blood Pressure 104/84 07/26/2024 10:21 AM CDT Pulse 79 07/26/2024 10:21 AM CDT Temperature 36.6 C (97.9 F) 07/26/2024 10:21 AM CDT Respiratory Rate 14 07/26/2024 10:21 AM CDT Oxygen Saturation 99% 07/26/2024 10:21 AM CDT Inhaled Oxygen Concentration - - Weight 61.2 kg (135 lb) 07/26/2024 10:21 AM CDT Height - - Body Mass Index - - Plan of Treatment Health Maintenance Due Date Last Done Comments Hepatitis C Virus (HCV) Screening 1985 TdaP Immunization 1985 Human Papillomavirus (HPV) Immunization (1 - 3-dose series) 01/24/2000 Hepatitis B Immunization (1 of 3 - 19+ 3-dose series) 01/24/2004 SARS-COV-2 Immunization ( season) 2024 05/13/2021, 07/28/2020, 07/08/2020 Influenza Immunization (#1) 2025 04/25/2016 Respiratory Syncytial Virus (RSV) Immunization (Adult) (1 - 1-dose 75+ series) 01/24/2060 Meningococcal Immunization (ACWY) Aged Out No longer eligible b ased on patient's age to complete this topic Pneumococcal Immunization Combined Aged Out No longer eligible b ased on patient's age to complete this topic Rotavirus Immunization Aged Out No lo nger eligible based on patient's age to complete this topic Insurance Care Teams Big 6 Dealer Relationship Specialty Start Date End Date Radha Rutherford MD [facility] [id number] [id number] [facility] - General 05/13/20
--- OUTSIDE RECORDS SUMMARY | 2024-11-27 15:32 | XMS_ITS | Referral Summary ---
Author Organization [address] lto Address [address] [place] [address] Care Team Providers Care Corporate Communications Intern Name Role Phone Radha Rutherford MD Primary Care Provider Radha Rutherford MD Unavailable [phone] Allergies Active Allergy Reactions Criticality Noted Date [...] 06/28/2021 Assessment & Plan (06/28/2021 8:32 AM HONEY PRODUCER): Rapid strep swab: NEGATIVE This looks viral in nature and should run its course without antibiotics in 7-10 days. To read med list from ENGINEER REMOTE CONTROL DIESEL for otc to treat symptoms. You will [...] SARS-CoV-2 Monovalent Vaccination (12+ Yrs) PURPLE 07/28/2020,07/08/2020 Social History Tobacco Use Types Packs/Day Years Used Date Smoking Tobacco: Never Smokeless Tobacco: Never Tobacco Cessation:Counseling Given: No Alcohol Use Standard Drinks/Week Comments Yes 0 (1 standard drink = 0.6 oz pur e alcohol) Comments Unknown Sex and Gender Information Value Date Recorded Sex Assigned at Not on file Legal Sex Female 4:13 AM HONEY PRODUCER Gender Identity Not on file Sexual Orientation Not on file Last Filed Vital Signs Vital Sign Reading Time Taken Comments Blood Pressure 102/66 07/04/2021 10:01 AM HONEY PRODUCER Pulse 87 07/04/2021 10:01 AM HONEY PRODUCER Temperature 36.8 C (98.3 F) 07/04/2021 10:01 AM HONEY PRODUCER Respiratory Rate 14 07/04/2021 10:01 AM HONEY PRODUCER Oxygen Saturation 100% 07/04/2021 10:01 AM HONEY PRODUCER Inhaled Oxygen Concentration - - Weight 67.7 kg (149 lb 3.2 oz) 07/04/2021 10:01 AM HONEY PRODUCER Height 170.2 cm (5' 7) 07/04/2021 10:01 AM HONEY PRODUCER Body Mass Index 23.37 07/04/2021 10:01 AM HONEY PRODUCER Plan of Treatment Not on file Insurance [facility] CHOICE PLUS [facility] HMO/PPO Address: [id number] [place] [address] [facility]ICE [facility] H[facility]/PPO Address: [address] [address] [place] [address] [facility] CHOICE PL[facility] HMO/PPO Address: [address] [address] [place] [address] [employer] PREFERRED Member Subscriber Plan / Payer (Ef fective 2016-Present) Name:Guillermina Garrison Relation to Subscriber:Self Name:Guillermina Garrison Payer ID:[id number] (NAIC) Type:[facility] Address: [facility] [address] [id number] Care Teams Corporate Communications Intern Relationship Specialty Start Date End Date Radha Rutherford MD [address] [place] [id number] PCP - General Internal Medicine 10/15/16 Radha Rutherford MD [address] [place] [id number] 10/15/16
--- OUTSIDE RECORDS SUMMARY | 2024-11-27 15:32 | XMS_ITS | Encounter Summary ---
Author Organization [facility] Address [address] [facility] [address] Phone Care Team Providers Care Drop Forger Name Role Phone Radha Rutherford MD Primary Care Provider [phone] Reason for Visit * Reason Comments Medication Refill Encounter Details Date Type Department Care Team (Late st Contact Info) Description 07/30/[address] [facility] [place] [address] [place] [address] Adeline Monae APRN, YARD TRUCK DRIVER [address] [place] [address] Medication Refill Social History Tobacco Use Types Packs/Day Years Used Date Smoking Tobacco: Never Smokeless Tobacco: Never Alcohol Use Standard Drinks/Week Comments Not Currently 0 (1 standard drink = 0.6 oz pur e alcohol) Comments Yes Sex and Gender Information Value Date Recorded Sex Assigned at Not on file Legal Sex Female 8:40 AM 3D TECHNOLOGIST Gender Identity Not on file Sexual Orientation Not on file COVID-19 Exposure Response Date Recorded In the last month, have you been in contact with someone who was confirmed or suspected to have Coronavirus / COVID-19? No / Unsure 07/11/2021 10:56 AM 3D TECHNOLOGIST documented as of this encounter Plan of Treatment Not on file documented as of this encounter Visit Diagnoses Diagnosis Acute right otitis media Unspecified otitis media documented in this encounter Care Teams Drop Forger Relationship Specialty Start Date End Date Radha Rutherford MD [address] [facility] [address], [place] [address] PCP - General 05/13/20 documented as of this encounter
[2024-11-27 15:36] VITALS: BP 120/75; PULSE 80; RESP 20; TEMP 36.9; O2SAT 100
--- NOTE | 2024-11-27 16:54 | ED.EAR ---
HPI - Ear Problem General Chief complaint: Ear Stated complaint: Ear Pain Time Seen by Provider: 11/27/24 16:54 Source: patient Mode of arrival: ambulatory Limitations: no limitations History of Present Illness HPI Narrative: 39-year-old female presented for complaint of bilateral ear pain. Endorses left ear pain and drainage for 3 days. Started with right ear pain last night. Endorses bilateral ear tubes and says the left ear has had more drainage than normal and muffled hearing. Denies tinnitus, dizziness, nausea, vomiting, fevers or chills. MD Complaint: ear pain Related Data Home Medications ?Medication ?Instructions ?Recorded ?Confirmed ?Last Taken ?Type dextroamphetamine-amphetamine ER 20 mg PO DAILY 05/09/22 01/10/24 01/10/24 History 20 mg 24hr capsule,extend release (Adderall XR) venlafaxine 150 mg 150 mg PO DAILY 05/09/22 01/10/24 01/10/24 History capsule,extended release 24 hr eszopiclone 3 mg tablet 3 mg PO HS 01/10/24 01/10/24 Unknown History Allergies Allergy/AdvReac Type Severity Reaction Status Date / Time Penicillins Allergy Rash Verified 11/27/24 15:53 codeine AdvReac Mild Nausea Verified 11/27/24 15:53 Review of Systems Review of Systems: CONSTITUTIONAL: Denies malaise, chills, or fever. EYES: Denies visual changes, redness, or discharge. ENT: Denies rhinorrhea, congestion, sinus pain, and sore throat. Reports ear pain CARDIOVASCULAR: Denies chest pain, palpitations, or edema. RESPIRATORY: Denies cough or dyspnea. GASTROINTESTINAL: Denies abdominal pain, nausea, vomiting, diarrhea SKIN: Denies rash or itching. MUSCULOSKELETAL: Denies myalgia. NEUROLOGIC: Denies headache. All systems reviewed & are unremarkable except as noted in HPI and below PMFSH Past Medical History Medical History Anxiety Gestational hypertension Headache No pertinent past medical history atony of uterus with hemorrhage Surgical History Surgical History No pertinent past surgical history Family History Family History Mother Family history non-contributory Father Lung cancer Sibling Breast cancer in male Grandparent Breast cancer in female Social History Social History Smoking status: Never smoker Alcohol intake: never Alcohol use details: RARE Substance use: never Substance use type: does not use Lack of Transportation: No Lack of Food: Never True Current Housing: I Have Housing Concerned About Future Housing: No Difficulty Paying Gas/Electric Bills: No Difficulty Paying for Meds: No Currently Unemployed: No Education: Trade/Vocational Certificate Difficulty w/ Childcare or Family Care: No Living arrangements: with family Gender identity (if verbalized by the patient): Female Sexual Orientation (if Verbalized by the Patient): Straight or Heterosexual Spiritual care concerns: No Comments At time of signature, agree with nursing past medical, surgical, social and family history. There is no relevant family history pertinent to the presenting complaint Exam Narrative: GENERAL: Well-appearing EYES: PERRLA, conjunctivae clear ENT: Nares clear. Mucous membranes moist. Bilateral TMs erythematous, bulging and intact with purulent effusion and tubes in place; canals not erythematous, no drainage, no tragal tenderness. Oropharynx not erythematous without lesions. no drooling, no hoarseness, no trismus, uvula midline. NECK: Supple. posterior auricular lymphadenopathy CHEST: Clear to auscultation, breath sounds equal. No wheezing, rhonchi, rales, or stridor. No respiratory distress, speaks in full sentences. HEART: Regular rate and rhythm. No murmur heard. SKIN: Warm, dry, no rash. NEURO: Alert and oriented x3. PSYCH: Normal mood and affect Course Course Emergency Course: Patient is aware of diagnosis, understands and agrees to treatment plan. Anticipatory guidance given. Patient agrees to follow-up as directed and is aware of reasons to seek care at the emergency department. Portions of this record may have been created with voice recognition software Level of Care: Express Care Visit Vital Signs Vital signs: Vital Signs Temperature 98.5 F 11/27/24 15:36 Pulse Rate 80 11/27/24 15:36 Respiratory Rate 20 11/27/24 15:36 Blood Pressure 120/75 11/27/24 15:36 Pulse Oximetry 100 07/23/25 15:36 Oxygen Delivery Room Air 11/27/24 15:36 Temperature 98.5 F 11/27/24 15:36 Pulse Rate 80 11/27/24 15:36 Respiratory Rate 20 11/27/24 15:36 Blood Pressure 120/75 11/27/24 15:36 Pulse Oximetry 100 11/27/24 15:36 Oxygen Delivery Room Air 11/27/24 15:36 Reviewed Medical Decision Making MDM Narrative Medical decision making narrative: discussed physical exam findings consistent with bilateral otitis media. Patient has PCN listed as allergy with rash, however she says Augmentin will be fine she can take it. Advised supportive measures and signs/symptoms to go to the ER. Patient is appropriate for outpatient treatment and follow-up. Differential Diagnosis Differential Diagnosis: Coronavirus, strep pharyngitis, allergic rhinitis, upper respiratory tract infection, sinusitis, rhinosinusitis, nasopharyngitis, viral pharyngitis, otitis media, otitis externa, eustachian tube dysfunction, foreign body, cerumen impaction. Vital Signs Vital Signs: Vital Signs Temperature 98.5 F 11/27/24 15:36 Pulse Rate 80 11/27/24 15:36 Respiratory Rate 20 11/27/24 15:36 Blood Pressure 120/75 11/27/24 15:36 Pulse Oximetry 100 11/27/24 15:36 Oxygen Delivery Room Air 11/27/24 15:36 Temperature 98.5 F 11/27/24 15:36 Pulse Rate 80 11/27/24 15:36 Respiratory Rate 20 11/27/24 15:36 Blood Pressure 120/75 11/27/24 15:36 Pulse Oximetry 100 11/27/24 15:36 Oxygen Delivery Room Air 11/27/24 15:36 Discharge Plan Discharge Clinical Impression: Otitis media Patient Disposition: Home Condition: Stable Instructions: Antibiotic Form, Ear Infection (ED) Additional Instructions: Take antibiotics as directed. Tylenol and Motrin every 8 hours as needed to reduce fever, pain Please schedule a follow-up visit with your personal physician If your symptoms persist, change or worsen significantly, go to the emergency department for further evaluation. Patient Language: Japanese Prescriptions: New amoxicillin-pot clavulanate 875-125 mg tablet 1 tablet PO Q12H 7 Days Qty: 14 0RF No Action dextroamphetamine-amphetamine [Adderall XR] 20 mg capsule,extended release 24hr 20 mg PO DAILY venlafaxine 150 mg capsule,extended release 24hr 150 mg PO DAILY eszopiclone 3 mg tablet 3 mg PO HS Follow-up/Referrals: PHYSICIAN,GLASS LOADING EQUIPMENT TENDER [Primary Care Provider] - Time of Disposition: 17:00
== END 2024-11-27 17:02 | disposition home or self-care (01) ==
PROVIDERS: Emergency Provider Nurse Practitioner Family
DX: H66.93 Otitis media, unspecified, bilateral (principal); Z96.22 Myringotomy tube(s) status; F41.9 Anxiety disorder, unspecified
CPT/HCPCS: 99213; G0463

== ENCOUNTER 2025-03-29 10:41 | Emergency (ER) | payer OTHER, SELFPAY ==
--- OUTSIDE RECORDS SUMMARY | 2025-03-29 10:43 | XMS_ITS | Clinical Summary ---
Author Organization [address] lto Address [address] [place] [address] Care Team Providers Care Mergers And Acquisitions Manager Name Role Phone Radha Rutherford MD Primary Care Provider [phone] Radha Rutherford MD Unavailable Allergies Active Allergy Reactions Criticality Noted Date [...] 06/28/2021 Assessment & Plan (06/28/2021 8:32 AM REGIONAL MEDICAL DIRECTOR): Rapid strep swab: NEGATIVE This looks viral in nature and should run its course without antibiotics in 7-10 days. To read med list from SNAKER TRACTOR DRIVER for otc to treat symptoms. You will [...] on file Legal Sex Female 4:13 AM REGIONAL MEDICAL DIRECTOR Gender Identity Not on file Sexual Orientation Not on file Obstetrics History Para Term AB IAB SAB Ectopic Multiple Livin g Live Births 1 Date Outcome GA Total Labor Labor/2nd/3rd Weight Sex Type Anes PTL Amy A1 A5 Name Clin Last Filed Vital Signs Vital Sign Reading Time Taken Comments Blood Pressure 102/66 07/04/2021 10:01 AM REGIONAL MEDICAL DIRECTOR Pulse 87 07/04/2021 10:01 AM REGIONAL MEDICAL DIRECTOR Temperature 36.8 C (98.3 F) 07/04/2021 10:01 AM REGIONAL MEDICAL DIRECTOR Respiratory Rate 14 07/04/2021 10:01 AM REGIONAL MEDICAL DIRECTOR Oxygen Saturation 100% 07/04/2021 10:01 AM REGIONAL MEDICAL DIRECTOR Inhaled Oxygen Concentration - - Weight 67.7 kg (149 lb 3.2 oz) 07/04/2021 10:01 AM REGIONAL MEDICAL DIRECTOR Height 170.2 cm (5' 7) 07/04/2021 10:01 AM REGIONAL MEDICAL DIRECTOR Body Mass Index 23.37 07/04/2021 10:01 AM REGIONAL MEDICAL DIRECTOR Plan of Treatment Health Maintenance Due Date Last Done Comments Breast Cancer Screening-Mammogram 1985 Cervical Cancer Screening 1985 Hepatitis C Screening 1985 DTaP/Tdap/Td Vaccine (1 - Tdap) 01/24/1996 Varicella Vaccines (1 of 2 - 13+ 2-dose series) 1998 Hepatitis B Screening 2003 Regular Well Visit/Exam 18-64 2003 HPV Vaccines (1 - 3-dose SCD M series) 01/24/2012 Depression Screening 05/31/2018 05/31/2017, 02/27/2017 Covid-19 Vaccine (3 - 2024-2 6 season) 2025 07/28/2020, 07/08/2020 Influenza Vaccine (#1) 2025 04/25/2016 Pneumococcal vaccine <65 Aged Out No longer eligible based on patient's age to complete this topic Insurance [facility] CHOICE PLUS [facility] CHOICE PLUS [facility] CHOICE PLUS [facility] PREFERRED Care Teams Mergers And Acquisitions Manager Relationship Specialty Start Date End Date Radha Rutherford MD [address] [id number] PCP - General Internal Medicine 10/15/16 Radha Rutherford MD [address] [place] [id number] 10/15/16
--- OUTSIDE RECORDS SUMMARY | 2025-03-29 10:43 | XMS_ITS | Clinical Summary ---
Author Organization [facility] Address [address] [place] [address] Phone Care Team Providers Care Scientific Aide Name Role Phone Radha Rutherford MD Primary Care Provider [phone] Allergies Active Allergy Reactions Criticality Noted Date [...] on file Legal Sex Female 8:40 AM SOLAR SALES ADVISOR Gender Identity Not on file Sexual Orientation [...] Comments Hepatitis C Virus (HCV) Screening 1985 Mammogram 1985 TdaP Immunization 1985 Varicella Immunization (1 of 2 - 13+ 2-dose series) 1998 Hepatitis B Immunization (1 of 3 - 19+ 3-dose series) 01/24/2004 Human Papillomavirus (HPV) Immunization (1 - 3-dose SCDM series) 01/24/2012 Influenza Immunization (#1) 2025 04/25/2016 SARS-COV-2 Immunization ( season) 2025 05/13/2021, 07/28/2020, 07/08/2020 Discussion re Starting/Frequency of Mammograms 2025 Respiratory Syncytial Virus (RSV) Immunization (Adult) (1 - 1-dose 75+ series) 01/24/2060 Meningococcal Immunization (ACWY) Aged Out No longer eligible b ased on patient's age to complete this topic Pneumococcal Immunization Combined Aged Out No longer eligible b ased on patient's age to complete this topic Rotavirus Immunization Aged Out No lo nger eligible based on patient's age to complete this topic [place] [address] [address] [address] Care Teams Scientific Aide Relationship Specialty Start Date End Date Radha Rutherford MD [facility] [address] PCP - General 05/13/20
--- OUTSIDE RECORDS SUMMARY | 2025-03-29 10:43 | XMS_ITS | Clinical Summary ---
Author Organization [facility] Address [address] [facility] [place] [address] Care Team Providers Care Green Building Architect Name Role Phone Unavailable Primary Care Provider Unavailabl e Source Comments [facility],non-owned Affiliates and Associated Physician Practices is amultiple site organization consisting of ambulatory clinics and hospital sitesin [place], [place], [place] and [place]. This disclosure is being madepursuant to the Care Everywhere program and may not contain all information available regarding this patient. Last updated 18.[facility] Allergies Active Allergy Reactions Criticality Noted Date Comments Codeine 07/26/2016 Medications * Be aware that medications may not be up to date on this document. Alwaysverify current medications with the patient. fluticasone propionate (FLONASE) 50 MCG/ACT nasal sprayIndication s:Rhinosinusiti s [place] 2 Sprays into each nostril once daily [...] Health Maintenance Due Date Last Done Comments LIPID TESTING 1985 MAMMOGRAM 1985 HIV SCREENING 01/24/2000 HEPATITIS C SCREENING 01/19/2003 DTAP/TDAP/TD VACCINES (1 - Tdap) 01/24/2004 HEPATITIS B VACCINE (1 of 3 - 19+ 3-dose series) 01/24/2004 Cervical Cancer Screening 2006 PAP SMEAR 2006 HPV VACCINE (1 - 3-dose SCDM series) 01/24/2012 PAP with HPV 2015 DEPRESSION SCREENING 05/08/2024 COVID-19 VACCINE (1 - 2024-2 6 season) 2025 INFLUENZA VACCINE (#1) 2025 ZOSTER VACCINE (1 [...] patient's age to complete this topic Insurance [address] * Guarantor: GUILLERMINA CHICAS Account Type Relation to Patient Date of Phone Billing Address Personal/Family [phone] [facility] * Guarantor: GUILLERMINA BREWER Account Type Relation to Patient Date of Phone Billing Address Personal/Family [phone] [facility]
--- OUTSIDE RECORDS SUMMARY | 2025-03-29 10:44 | XMS_ITS | Data Portability ---
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 Tested BP Systolic [...] Weight in lbs Pre/Post Dialysis Refused Weight 189.306309621120 BP Diastolic BP Location Tested BP Systolic [...] Weight in lbs Pre/Post Dialysis Refused Weight 191.464368317266 BP Diastolic BP Location Tested BP Systolic [...] Weight in lbs Pre/Post Dialysis Refused Weight 196.952103776895 BP Diastolic BP Location Tested BP Systolic [...] Weight in lbs Pre/Post Dialysis Refused Weight 168.619054380614 BP Diastolic BP Location Tested BP Systolic BP Type 114 R arm 168 sitting 93 R arm 136 sitting Fetus Heart Rate Present Fetus Movement Comments Flowsheet Date 02/27/2020 Knight Score Blood Edema Fundus Height Fundus Units Glucose Ketones Leukocytes Nitrite Labor Signs Protein Cervic Dilation Cervic Effacement Cervic Station Type Weight in lbs Pre/Post Dialysis Refused Weight 162.430266593779 BP Diastolic BP Location Tested BP Systolic [...] Estim ated Date of Delivery false Thalassemia (Turkish, Ivorian, Mediterranean, Or Background): MCV < 80 false Neural Tube Defect (Meningomyelocele, Spina Bifi da, Or Anencephaly) false Congenital Heart Defect false Down Syndrome false Cole-Sachs (eg, Yazidi, Cajun, Polish-Archuleta) f alse Kim Disease false Sickle Cell Disease Or Trait () false Hemophilia Or Other Blood Disorders false Muscular Dystrophy false Cystic Fibrosis false Gay's Chorea false Intellectual Disability/Autism false If Yes, [...] Domestic Partner Domestic Partner Phone Father Name Neuropathologist Status 01/03/20 20 1 CLOSED Fetus Data [...] Post Complications Tubal Sterilization Discharge Date Comments 9 04/2019 miscarria ge Discharge Information Feeding Method Contraceptive Method Maternal HG B and HCT Levels Ob Episode Information Episode Created Date Number of Fetuses Patient Bloodtype Patient rh Status Prepregnancy Weight lbs Domestic Partner Domestic Partner Phone Father Name Neuropathologist Status 02/10/20 20 1 DELETED Papa Calculation [...] Domestic Partner Domestic Partner Phone Father Name Neuropathologist Status 03/29/20 21 1 DELETED Papa Calculation [...] Domestic Partner Domestic Partner Phone Father Name Neuropathologist Status 03/29/20 21 1 CLOSED Fetus Data First Name Last Name Admitted to NICU Weight (g) Sex Living Outcome Pediatric Complications Fetus ID Race Codes Race Delivery Type , Spontane ous [id number] Papa Calculation Initial Papa Date Initial Exam [...] Domestic Partner Domestic Partner Phone Father Name Neuropathologist Status 05/19/19 22 1 O Positive 143 CLOSED Fetus Data First Name Last Name Admitted to NICU Weight (g) Sex Living Outcome Pediatric Complications Fetus ID Race Codes Race Delivery Type 2778.25 1 F true Full Term [id number] Primary Problems Problem Notes 28WK Panel WNL Problem Name Start Date End Date Resolution Snomed Code Not e hemorrhage [id number] -induced hypertension [id number] h/o Papa Calculation Initial Papa Date Initial [...] Weight in lbs Pre/Post Dialysis Refused Weight 140.923139181202 BP Diastolic BP Location Tested BP Systolic [...] Weight in lbs Pre/Post Dialysis Refused Weight 147.841236427590 BP Diastolic BP Location Tested BP Systolic [...] Weight in lbs Pre/Post Dialysis Refused Weight 154.605914722710 BP Diastolic BP Location Tested BP Systolic [...] Weight in lbs Pre/Post Dialysis Refused Weight 160.861964706706 BP Diastolic BP Location Tested BP Systolic BP Type 82 L arm 120 sitting Fetus Heart Rate Present A 145 Fetus Movement Comments No complaints, Flowsheet Date 09/15/2021 Knight Score Blood Edema Fundus Height Fundus Units Glucose Ketones Leukocytes Nitrite Labor Signs Protein Cervic Dilation Cervic Effacement Cervic Station neg none 28 none trace Type Weight in lbs Pre/Post Dialysis Refused Weight 162.205065841933 BP Diastolic BP Location Tested BP Systolic [...] Weight in lbs Pre/Post Dialysis Refused Weight 168.511552227076 BP Diastolic BP Location Tested BP Systolic [...] Weight in lbs Pre/Post Dialysis Refused Weight 170.322856544166 BP Diastolic BP Location Tested BP Systolic BP Type 80 R arm 114 sitting Fetus Heart Rate Present A 145 Fetus Movement Comments No complaints, normal blood pressure Flowsheet Date 10/29/2021 Knight Score Blood Edema Fundus Height Fundus Units Glucose Ketones Leukocytes Nitrite Labor Signs Protein Cervic Dilation Cervic Effacement Cervic Station 34 Type Weight in lbs Pre/Post Dialysis Refused Weight 173.805508196352 BP Diastolic BP Location Tested BP Systolic [...] Weight in lbs Pre/Post Dialysis Refused Weight 174.85599433966 BP Diastolic BP Location Tested BP Systolic [...] Weight in lbs Pre/Post Dialysis Refused Weight 157.270993529441 BP Diastolic BP Location Tested BP Systolic [...] Estim ated Date of Delivery false Thalassemia (Turkish, Ivorian, Mediterranean, Or Background): MCV < 80 false Neural Tube Defect (Meningomyelocele, Spina Bifi da, Or Anencephaly) false Congenital Heart Defect false Down Syndrome false Cole-Sachs (eg, Yazidi, Cajun, Polish-Archuleta) f alse Kim Disease false Sickle Cell Disease Or Trait () false Hemophilia Or Other Blood Disorders false Muscular Dystrophy false Cystic Fibrosis false Gay's Chorea false Intellectual Disability/Autism false If Yes, [...]
--- OUTSIDE RECORDS SUMMARY | 2025-03-29 10:44 | XMS_ITS | Clinical Summary ---
Author Organization [facility] Address [address] [place] [address] Care Team Providers Care World Designer Name Role Phone Benjamin Buchanan MD Primary Care Provider [phone] Allergies Active Allergy Reactions Criticality Noted Date [...] Health Maintenance Due Date Last Done Comments DTAP/TDAP/TD VACCINES (1 - Tdap) 01/24/2004 HEPATITIS B VACCINES (1 of 3 - 19+ 3-dose series) 01/06 HPV/Cotest (21-29) 2006 HPV VACCINES (1 - 3-dose SCDM series) 01/24/2012 CERVICAL CANCER SCREENING 2015 HPV/Cotest (30-65) 2015 PAP SMEAR 2015 INFLUENZA VACCINE (#1) 2024 04/25/2016 BREAST CANCER SCREENING 2025 Care Teams World Designer Relationship Specialty Start Date End Date Benjamin Buchanan MD PCP - General Internal Medicine 01/05/16
[2025-03-29 10:46] VITALS: BP 131/85; PULSE 107; RESP 20; TEMP 36.6; O2SAT 100
--- NOTE | 2025-03-29 11:01 | ED_ITS ---
HPI - Ear Problem General Chief complaint: Ear Stated complaint: Ear Pain Time Seen by Provider: 03/29/25 11:01 Source: patient, RN notes reviewed and old records reviewed Mode of arrival: ambulatory Limitations: no limitations History of Present Illness HPI Narrative: 40year old female who presents to [facility] care with complaints of felling weak, achy, having cough and sinus congestion since Monday with now having pain to her left ear. Patient reports that she has history of ear problems in the past and has permanent tube to her right ear. Patient reports that she has been using Tylenol and also using flonase nasal spray. Patient reports that her congestion is better but continues with ear pain to the left ear, has not noted any drainage from her left ear. MD Complaint: ear pain and other (cough and congestion) Location: left ear Severity: moderate Discharge from ear: Reports no Treatment prior to arrival: oral analgesic (Tylenol and Flonase) Related Data Home Medications ?Medication ?Instructions ?Recorded ?Confirmed ?Last Taken ?Type dextroamphetamine-amphetamine ER 20 mg PO DAILY 01/10/24 01/10/24 History 20 mg 24hr capsule,extend release (Adderall XR) venlafaxine 150 mg 150 mg PO DAILY 05/09/2208/2901/10/24 History capsule,extended release 24 hr eszopiclone 3 mg tablet 3 mg PO HS 01/10/24 01/10/24 Unknown History Allergies Allergy/AdvReac Type Severity Reaction Status Date / Time Penicillins Allergy Rash Verified 03/29/25 10:50 codeine AdvReac Mild Nausea Verified 03/29/25 10:50 Review of Systems Review of Systems: CONSTITUTIONAL:reports some malaise, no chills, sweats, or fever. EYES: Denies visual changes, redness, or discharge. ENT: Reports rhinorrhea, congestion, sinus pain,+ left otalgia and no sore throat. CARDIOVASCULAR: Denies chest pain, palpitations, or edema. RESPIRATORY: Reports cough.? Denies dyspnea. GASTROINTESTINAL: Denies abdominal pain, nausea, vomiting, diarrhea SKIN: Denies rash or itching. MUSCULOSKELETAL: Positive myalgia. NEUROLOGIC: Denies headache. All systems reviewed & are unremarkable except as noted in HPI and below PMFSH Past Medical History Medical History Headache Gestational hypertension atony of uterus with hemorrhage Anxiety No pertinent past medical history Surgical History Surgical History History of placement of ear tubes has permanent ear tube right ear Family History Family History Mother Family history non-contributory Father Lung cancer Sibling Breast cancer in male Grandparent Breast cancer in female Social History Social History Smoking status: Never smoker Alcohol intake: never Alcohol use details: RARE Substance use: never Substance use type: does not use Lack of Transportation: No Lack of Food: Never True Current Housing: I Have Housing Concerned About Future Housing: No Difficulty Paying Gas/Electric Bills: No Difficulty Paying for Meds: No Currently Unemployed: No Education: Trade/Vocational Certificate Difficulty w/ Childcare or Family Care: No Living arrangements: with family Gender identity (if verbalized by the patient): Female Sexual Orientation (if Verbalized by the Patient): Straight or Heterosexual Spiritual care concerns: No Comments At time of signature, agree with nursing past medical, surgical, social and family history. There is no relevant family history pertinent to the presenting complaint Exam Narrative: GENERAL: Well-appearing, well-nourished, and in no acute distress. HEAD: Normocephalic EYES: PERRLA, conjunctivae clear ENT: Nares clear, turbinates edematous and erythematous, clear discharge. Mucous membranes moist. Left TM red with redness and some swelling of left ear canal, Right TM pearly roche with dull light reflex permanent ear tube intact; no tragal tenderness. Oropharynx erythematous without lesions. Tonsils not enlarged and without exudate, no drooling, no hoarseness, no trismus, uvula midline. NECK: Supple. No lymphadenopathy CHEST: Clear to auscultation, breath sounds equal. No wheezing, rhonchi, rales, or stridor. No respiratory distress, speaks in full sentences.dry cough SAO2 10 0% on room air HEART: Regular rate and rhythm. No murmur heard. SKIN: Warm, dry, no rash. NEURO: Alert and oriented x3. PSYCH: Normal mood and affect Course Course Emergency Course: Patient is aware of diagnosis, understands and agrees to treatment plan.? Anticipatory guidance given.? Patient agrees to follow-up as directed and is aware of reasons to seek care at the emergency department. Portions of this record may have been created with voice recognition software Level of Care: Express Care Visit Vital Signs Vital signs: Vital Signs Temperature 36.6 C 03/29/25 10:46 Pulse Rate 107 H 03/29/25 10:46 Respiratory Rate 20 03/29/25 10:46 Blood Pressure 131/85 03/29/25 10:46 Pulse Oximetry 100 03/29/25 10:46 Oxygen Delivery Room Air 03/29/25 10:46 Temperature 36.6 C 03/29/25 10:46 Pulse Rate 107 H 03/29/25 10:46 Respiratory Rate 20 03/29/25 10:46 Blood Pressure 131/85 03/29/25 10:46 Pulse Oximetry 100 03/29/25 10:46 Oxygen Delivery Room Air 03/29/25 10:46 Reviewed Medical Decision Making Differential Diagnosis Differential Diagnosis: URI, otitis media, otitis externa, viral infection Medical Records Medical records reviewed: Yes I reviewed the external patient's medical records. Vital Signs Vital Signs: Vital Signs Temperature 36.6 C 03/29/25 10:46 Pulse Rate 107 H 03/29/25 10:46 Respiratory Rate 20 03/29/25 10:46 Blood Pressure 131/85 03/29/25 10:46 Pulse Oximetry 100 03/29/25 10:46 Oxygen Delivery Room Air 03/29/25 10:46 Temperature 36.6 C 03/29/25 10:46 Pulse Rate 107 H 03/29/25 10:46 Respiratory Rate 20 03/29/25 10:46 Blood Pressure 131/85 03/29/25 10:46 Pulse Oximetry 100 03/29/25 10:46 Oxygen Delivery Room Air 03/29/25 10:46 reviewed Critical Care Time Critical Care Time Critical Care Time: No Discharge Plan Discharge Clinical Impression: Acute left otitis media, External otitis of left ear Patient Disposition: Home Condition: Stable Instructions: Antibiotic Form, Swimmer's Ear (ED), Ear Infection (GEN) Additional Instructions: Increase fluids especially juices and water Klri-pvy-ogmndlc cough and cold medicine of your choice for your symptoms Zyrtec Claritin or Molly daily per package instruction ear drops as prescribed to left ear Steroids as directed--take with food heat to the face 20-30 minutes 4-6 times a day for pain Salt water gargles, throat lozenges or throat sprays as desired Antibiotic as directed--finished the medication If your symptoms persist, change or worsen significantly before you can contact your personal physician then please, without delay, go to the emergency department for further evaluation. Follow-up with PCP in 7-10 days or sooner if needed Follow up with PCP soon in regards to your blood pressure which is elevated above threshold for referral. Blood pressure above 120/80 may indicate pre- hypertension. 131/85 Patient Language: Cymraes Prescriptions: New amoxicillin-pot clavulanate 875-125 mg tablet 1 tablet PO Q12H Qty: 20 0RF Rx Instructions: Take probiotic or eat Activia yogurt while taking this antibiotic ofloxacin 0.3 % drops 5 drp LEFT EAR BID 7 Days Qty: 10 0RF methylprednisolone [Medrol (Pedro)] 4 mg tablets,dose pack See Rx Instructions .ROUTE .COMPLEX Qty: 21 0RF Rx Instructions: orally per package directions No Action dextroamphetamine-amphetamine [Adderall XR] 20 mg capsule,extended release 24hr 20 mg PO DAILY venlafaxine 150 mg capsule,extended release 24hr 150 mg PO DAILY eszopiclone 3 mg tablet 3 mg PO HS Follow-up/Referrals: UNKNOWN,DOCTOR [Primary Care Provider] Time of Disposition: 11:15 Quality Mukund Coma Scale Eyes: Open Verbal: Oriented and Alert Motor: Follows Commands Mukund Coma Total Score: 15
== END 2025-03-29 11:21 | disposition home or self-care (01) ==
PROVIDERS: Emergency Provider Registered Nurse
DX: H66.92 Otitis media, unspecified, left ear (principal); H60.92 Unspecified otitis externa, left ear; F41.9 Anxiety disorder, unspecified
CPT/HCPCS: 99213; G0463